=== PATIENT | male | born 1980 | race Caucasian/White ===

== ENCOUNTER 2020-05-19 11:20 | Inpatient (IN) | payer MEDICARE, MEDICAID, SELFPAY ==
[2020-05-19 11:55] VITALS: BP 162/109; PULSE 101; RESP 18; O2SAT 96; BMI 37.0
--- NOTE | 2020-05-19 12:05 | CT_ITS ---
EXAMINATION: CT ABDOMEN AND PELVIS WITH CONTRAST CLINICAL INFORMATION: Abdominal pain and bleeding from ostomy COMPARISON: Previous exams most recent 03/01/2000 TECHNIQUE: Multidetector volumetric images were obtained from the superior aspect of the liver through the pubic symphysis following administration 85 mL of Omnipaque 350 intravenous contrast. Sagittal and coronal reformatted images were obtained on the technologist's workstation. Oral contrast: No This CT examination was performed using dose optimization techniques as appropriate, variously including the following: *Automated exposure control *Adjustment of mA and/or kV according to patient size (this includes techniques or standardized protocols for targeted exams where dose is matched to indication/reason for exam; i.e. extremities or head) *Use of iterative reconstruction technique DLP: 966 mGy-cm FINDINGS: LUNG BASES: The visualized lung bases are unremarkable. LIVER, GALLBLADDER, AND BILIARY TREE: The liver is low in attenuation suggestive of fatty infiltration. No focal liver lesion is seen. There may be gallstones in the gallbladder. The gallbladder is otherwise normal. There is no biliary duct dilatation. PANCREAS: Unremarkable. SPLEEN: The spleen is slightly enlarged measuring 13.7 cm in length. ADRENAL GLANDS: Unremarkable. KIDNEYS AND URETERS: The kidneys are normal in size, shape, and attenuation. No hydronephrosis, hydroureter, or calculi seen. There is focal dilatation of the right distal ureter. BLADDER: The bladder is not optimally distended. There is question of mild diffuse bladder wall thickening. GASTROINTESTINAL TRACT: The patient appears post near total colectomy. There is a right lower quadrant ileostomy. There is a large parastomal hernia containing fat and loops of small bowel. There are multiple small ventral hernias containing fat. No abnormal small bowel bowel wall thickening or enhancement is seen. There is a small supraumbilical hernia containing fat and a knuckle of small bowel. There are no dilated loops of bowel to suggest obstruction. There is question of mild wall thickening of the remaining distal sigmoid colon and rectum. This is unchanged from previous exams. ABDOMINAL WALL: See above. LYMPH NODES: Normal. VASCULAR: Unremarkable. PELVIC VISCERA: Unremarkable. OSSEOUS STRUCTURES: There are degenerative changes of the spine. CT/CT abdomen pelvis w con IMPRESSION: Postop colectomy. Right lower quadrant ileostomy. Large parastomal hernia containing multiple loops of small bowel and fat. No evidence of obstruction, bowel wall thickening or wall enhancement seen. Multiple ventral small hernias containing fat and small supraumbilical hernia containing a knuckle of small bowel. Slightly enlarged spleen. Stable focal dilatation of the right distal ureter. Bladder not optimally distended. Question diffuse bladder wall thickening.
--- NOTE | 2020-05-19 12:09 | ED_ITS ---
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 States he has had 2 prior episodes of this in the past most recently in 2018 where it was thought to be related to a gastric ulcer. He does report he has slight bubble like discomfort in the upper abdomen otherwise no nausea vomiting, chest pain or shortness of breath or weakness. Onset (ago): day(s) (1 days ) Related Data Home Medications Medication Instructions Recorded Confirmed hydroxyzine HCl 25 mg PO Q8H PRN 05/19/20 05/19/20 methadone 70 mg PO DAILY 05/19/20 05/19/20 rivaroxaban [Xarelto] 20 mg PO DAILY 05/19/20 05/19/20 sertraline 50 mg PO DAILY 05/19/20 05/19/20 Previous Rx's Medication Instructions Recorded omeprazole 20 mg capsule,delayed 20 mg PO DAILY #30 cap 05/13/20 release Allergies Allergy/AdvReac Type Severity Reaction Status Date / Time No Known Allergies Allergy Unknown UNKNOWN Unverified 03/25/20 14:59 [NO KNOWN ALLERGIES] PMF Past Medical History Medical History (Updated 05/19/20 @ 16:23 by Olman Padron NP) Colostomy in place Hirschsprung's disease Pulmonary embolism Social History Social History Smoked in Last 30 Days: No Use of substances other than those prescribed or required for medical reasons: No Advance Directives: No Advance Directives Information Provided: Yes Physical Exam Vital Signs: Vital Signs: Last Vital Signs Temp 98.2 F 05/19/20 15:57 Pulse 120 H 05/19/20 15:57 Resp 18 05/19/20 15:57 BP 100/58 L 05/19/20 15:57 Pulse Ox 95 05/19/20 15:57 Body Mass Index 37.0 Const: General: cooperative and healthy appearing; No acute distress or intoxicated appearing Nutritional Appearance: average body habitus Orientation/consciousness: patient oriented x3 HENMT: Head: Yes normal to inspection Ears: hearing grossly normal bilaterally Eyes: General: appearance normal, both eyes and all related structures Visual Lowe: normal visual lowe by confrontation Neck: Neck: Yes normal visual inspection and No tender Thyroid: Thyroid normal Chest: Chest palpation & inspection: normal inspection of the chest Resp: Effort & Inspection: normal respiratory effort Cardio: Jugular venous distension: no JVD GI: Other: Inspection: Yes normal to inspection Percussion: Yes normal to percussion Auscultation: normal bowel sounds : General: Yes no CVA tenderness Back/Spine/Pelvis: Back: no CVA tenderness Skin: General skin exam: no rashes or lesions noted Neuro: General: patient oriented x3 Extrem: General: Yes normal to inspection Course Course Course Narrative: 1210 Consistency of this shawna red substance in the colostomy is very water like and there is no form clots I did ask him if he has been been drinking any juices with red dye or cranberry juice and he does admit that he has been drinking an energy drink that is made by Gatorade that is red. Occult stool obtained and sent as well as labs including type and screen given his abdominal pain is history CT of the abdomen will be performed. Patient this time is hemodynamically stable in no acute distress. Reevaluation(s) Reevaluation #1: 1300 Call placed to GI covering Dr. López [phone] López advised me to discuss case with Dr. Peres or Dr. Natalie Peres as he is not covering call until 17:00 today Paged placed to Dr. Peres- Reevaluation #2: Case discussed with Dr. Peres who evaluated patient at bedside recommendation ppi, will scope him tomorrow but in the meantime if he becomes unstable recommendation is CT angio of the abdomen. Reevaluation #3: Case discussed with hospitalist services for admission. Patient remained stable. Consultations Consultation #1: [address] read I spoke to [facility] they are working on the read right now Medical Decision Making Lab Data Result diagrams: 05/19/20 12:13 05/19/20 12:13 Labs: Lab Results 05/19/20 05/19/20 05/19/20 Range/Units 12:08 12:13 12:13 WBC 4.4 L (4.8-10.8) X10*3/uL RBC 4.80 (4.60-5.80) X10*6/uL Hgb 13.4 L (14.0-18.0) g/dl Hct 40.4 L (42-52) % MCV 84.2 (80-98) fL MCH 27.9 (27.0-33.0) pg MCHC 33.2 (31.0-36.0) g/dl RDW 13.4 (11.0-16.0) % Plt Count 176 (160-400) X10*3/uL MPV 10.8 (9.4-12.4) fL Immature Gran % (Auto) 0.5 H (0.0-0.4) % Neut % (Auto) 65.3 (45-73) % Lymph % (Auto) 25.5 (20-40) % [place] % (Auto) 6.2 (2-11) % Eos % (Auto) 1.8 (0-4) % Baso % (Auto) 0.7 (0-2) % Lymph # (Auto) 1.1 L (1.2-4.9) X10*3/uL [place] # (Auto) 0.3 (0.1-1.2) X10*3/uL Eos # (Auto) 0.1 (0.0-0.4) X10*3/uL Baso # (Auto) 0.0 (0.0-0.2) X10*3/uL Abs Immat Gran (auto) 0.02 (0.00-0.03) X10*3/uL Absolute Neuts (auto) 2.9 (2.0-8.3) X10*3/uL Absolute Nucleated RBC 0.000 (0.0-0.012) X10*3/uL Nucleated RBC % (auto) 0.0 (0.0-0.2) /100WBC PT 19.6 H (10.8-13.0) SEC INR 1.6 H (0.9-1.1) APTT 43.3 H (24.1-38.0) SEC Sodium (135-145) mmol/L Potassium (3.3-5.1) mmol/l Chloride (96-108) mmol/L Carbon Dioxide (22-29) mmol/L Anion Gap (12-20) BUN (9-16) mg/dL Creatinine (0.5-1.4) mg/dL Estim Creat Clear Calc Estimated GFR Random Glucose (60-115) mg/dL Calcium (8.4-10.2) mg/dL Total Bilirubin (0.0-1.0) mg/dL AST (5-37) U/L ALT (0-40) U/L Alkaline Phosphatase (39-117) U/L Total Protein (6.5-8.0) g/dL Albumin (3.5-5.0) g/dL Urine Color Urine Appearance Urine pH (5.0-8.0) Ur Specific [place] (1.005-1.025) Urine Protein (NEG-TRACE) MG/DL Urine Glucose (UA) (NEG) MG/DL Urine Ketones (NEG) MG/DL Urine Blood (NEG) Urine Nitrite (NEG) Ur Leukocyte Esterase (NEG) Urine RBC (0) /HPF Urine WBC (0-4) /HPF Ur Squamous Epith Cells /LPF Urine Bacteria /LPF Stool Occult Blood POS (NEG) COVID-19 ([facility]) (Negative) COVID-19 Clin Com Blood Type Antibody Screen 05/19/20 05/19/20 05/19/20 Range/Units 12:13 12:29 12:48 WBC (4.8-10.8) X10*3/uL RBC (4.60-5.80) X10*6/uL Hgb (14.0-18.0) g/dl Hct (42-52) % MCV (80-98) fL MCH (27.0-33.0) pg MCHC (31.0-36.0) g/dl RDW (11.0-16.0) % Plt Count (160-400) X10*3/uL MPV (9.4-12.4) fL Immature Gran % (Auto) (0.0-0.4) % Neut % (Auto) (45-73) % Lymph % (Auto) (20-40) % [place] % (Auto) (2-11) % Eos % (Auto) (0-4) % Baso % (Auto) (0-2) % Lymph # (Auto) (1.2-4.9) X10*3/uL [place] # (Auto) (0.1-1.2) X10*3/uL Eos # (Auto) (0.0-0.4) X10*3/uL Baso # (Auto) (0.0-0.2) X10*3/uL Abs Immat Gran (auto) (0.00-0.03) X10*3/uL Absolute Neuts (auto) (2.0-8.3) X10*3/uL Absolute Nucleated RBC (0.0-0.012) X10*3/uL Nucleated RBC % (auto) (0.0-0.2) /100WBC PT (10.8-13.0) SEC INR (0.9-1.1) APTT (24.1-38.0) SEC Sodium 138 (135-145) mmol/L Potassium 3.7 (3.3-5.1) mmol/l Chloride 102 (96-108) mmol/L Carbon Dioxide 27 (22-29) mmol/L Anion Gap 13 (12-20) BUN 14 (9-16) mg/dL Creatinine 0.94 (0.5-1.4) mg/dL Estim Creat Clear Calc 118.0 Estimated GFR > 60 Random Glucose 137 H (60-115) mg/dL Calcium 9.0 (8.4-10.2) mg/dL Total Bilirubin 0.5 (0.0-1.0) mg/dL AST 25 (5-37) U/L ALT 33 (0-40) U/L Alkaline Phosphatase 87 (39-117) U/L Total Protein 7.3 (6.5-8.0) g/dL Albumin 4.5 (3.5-5.0) g/dL Urine Color YELLOW Urine Appearance CLEAR Urine pH 6.0 (5.0-8.0) Ur Specific [place] >= 1.030 H (1.005-1.025) Urine Protein TRACE (NEG-TRACE) MG/DL Urine Glucose (UA) NEG (NEG) MG/DL Urine Ketones NEG (NEG) MG/DL Urine Blood NEG (NEG) Urine Nitrite NEG (NEG) Ur Leukocyte Esterase NEG (NEG) Urine RBC 0-2 (0) /HPF Urine WBC 0 (0-4) /HPF Ur Squamous Epith Cells TRACE /LPF Urine Bacteria NONE /LPF Stool Occult Blood (NEG) COVID-19 ([facility]) (Negative) COVID-19 Clin Com Blood Type A Positive Antibody Screen NEGATIVE 05/19/20 Range/Units 15:22 WBC (4.8-10.8) X10*3/uL RBC (4.60-5.80) X10*6/uL Hgb (14.0-18.0) g/dl Hct (42-52) % MCV (80-98) fL MCH (27.0-33.0) pg MCHC (31.0-36.0) g/dl RDW (11.0-16.0) % Plt Count (160-400) X10*3/uL MPV (9.4-12.4) fL Immature Gran % (Auto) (0.0-0.4) % Neut % (Auto) (45-73) % Lymph % (Auto) (20-40) % [place] % (Auto) (2-11) % Eos % (Auto) (0-4) % Baso % (Auto) (0-2) % Lymph # (Auto) (1.2-4.9) X10*3/uL [place] # (Auto) (0.1-1.2) X10*3/uL Eos # (Auto) (0.0-0.4) X10*3/uL Baso # (Auto) (0.0-0.2) X10*3/uL Abs Immat Gran (auto) (0.00-0.03) X10*3/uL Absolute Neuts (auto) (2.0-8.3) X10*3/uL Absolute Nucleated RBC (0.0-0.012) X10*3/uL Nucleated RBC % (auto) (0.0-0.2) /100WBC PT (10.8-13.0) SEC INR (0.9-1.1) APTT (24.1-38.0) SEC Sodium (135-145) mmol/L Potassium (3.3-5.1) mmol/l Chloride (96-108) mmol/L Carbon Dioxide (22-29) mmol/L Anion Gap (12-20) BUN (9-16) mg/dL Creatinine (0.5-1.4) mg/dL Estim Creat Clear Calc Estimated GFR Random Glucose (60-115) mg/dL Calcium (8.4-10.2) mg/dL Total Bilirubin (0.0-1.0) mg/dL AST (5-37) U/L ALT (0-40) U/L Alkaline Phosphatase (39-117) U/L Total Protein (6.5-8.0) g/dL Albumin (3.5-5.0) g/dL Urine Color Urine Appearance Urine pH (5.0-8.0) Ur Specific [place] (1.005-1.025) Urine Protein (NEG-TRACE) MG/DL Urine Glucose (UA) (NEG) MG/DL Urine Ketones (NEG) MG/DL Urine Blood (NEG) Urine Nitrite (NEG) Ur Leukocyte Esterase (NEG) Urine RBC (0) /HPF Urine WBC (0-4) /HPF Ur Squamous Epith Cells /LPF Urine Bacteria /LPF Stool Occult Blood (NEG) COVID-19 ([facility]) Negative (Negative) COVID-19 Clin Com See Note Blood Type Antibody Screen Discharge Plan Discharge Clinical Impression: Acute GI bleeding Patient Disposition: Admitted As Inpatient Prescriptions: No Action omeprazole 20 mg capsule,delayed release(DR/EC) 20 mg PO DAILY Qty: 30 RF: 0 sertraline 50 mg tablet 50 mg PO DAILY RF: 0 Xarelto 20 mg tablet 20 mg PO DAILY RF: 0 hydroxyzine HCl 25 mg tablet 25 mg PO Q8H PRN (Reason: anxiety) RF: 0 methadone 10 mg/mL Concentrate 70 mg PO DAILY RF: 0
[2020-05-19 12:18] LABS: MANUAL DIFF FLAG NO
[2020-05-19 12:19] LABS: Basophils Percent Auto 0.7 % (0-2); Eosinophils Absolute Auto 0.1 X10*3/uL (0.0-0.4); Eosinophils Percent Auto 1.8 % (0-4); Hematocrit 40.4 % (42-52); Hemoglobin 13.4 g/dl (14.0-18.0); Imm Gran Abs Auto 0.02 X10*3/uL (0.00-0.03); Imm Gran Pct Auto 0.5 % (0.0-0.4); Lymphocytes Absolute Auto 1.1 X10*3/uL (1.2-4.9); Lymphocytes Percent Auto 25.5 % (20-40); Mean Corpuscular HGB Conc 33.2 g/dl (31.0-36.0); Mean Corpuscular Hemoglobin 27.9 pg (27.0-33.0); Mean Corpuscular Volume 84.2 fL (80-98); Mean Platelet Volume 10.8 fL (9.4-12.4); Monocytes Absolute Auto 0.3 X10*3/uL (0.1-1.2); Monocytes Percent Auto 6.2 % (2-11); Neutrophils Absolute Auto 2.9 X10*3/uL (2.0-8.3); Neutrophils Percent Auto 65.3 % (45-73); Platelet Count 176 X10*3/uL (160-400); Red Cell Distribution Width 13.4 % (11.0-16.0); White Blood Count 4.4 X10*3/uL (4.8-10.8)
[2020-05-19 12:20] LABS: OBS Int Ctl Valid YES; OBS1 POS (NEG)
[2020-05-19 12:32] LABS: INTERNATIONAL NORM RATIO 1.6 (0.9-1.1); Prothrombin Time 19.6 SEC (10.8-13.0)
[2020-05-19 12:35] LABS: Partial Thromboplastin Time 43.3 SEC (24.1-38.0)
[2020-05-19 12:44] LABS: Glucose Urine UA NEG (NEG); Leukocyte Esterase Urine NEG (NEG); Nitrite Urine NEG (NEG); Specific Gravity - Urine >= 1.030 (1.005-1.025); Urine Blood NEG (NEG); Urine Ketones NEG (NEG); Urine Protein TRACE MG/DL (NEG-TRACE)
[2020-05-19 12:46] LABS: Appearance Urine CLEAR; Color Urine YELLOW
[2020-05-19 12:51] LABS: RBC Urine 0-2 /HPF (0); Squamous Epithelial Cell Urine TRACE /LPF; WBC Urine 0 /HPF (0-4)
[2020-05-19 12:53] LABS: Alanine Aminotransferase 33 U/L (0-40); Albumin Level 4.5 g/dL (3.5-5.0); Alkaline Phosphatase 87 U/L (39-117); Anion Gap 13 (12-20); Aspartate Amino Transferase 25 U/L (5-37); Bilirubin Total 0.5 mg/dL (0.0-1.0); Blood Urea Nitrogen 14 mg/dL (9-16); Carbon Dioxide 27 mmol/L (22-29); Chloride 102 mmol/L (96-108); Estimated Glomerular Filt Rate > 60; Glucose Random 137 mg/dL (60-115); Potassium 3.7 mmol/l (3.3-5.1); Sodium 138 mmol/L (135-145); Total Protein 7.3 g/dL (6.5-8.0)
[2020-05-19 14:43] VITALS: BP 154/98; PULSE 93; RESP 18; TEMP 36.7; O2SAT 97
[2020-05-19] MEDS: ondansetron HCL 4 MG/2 ML VIAL IVPUSH (14:47)
[2020-05-19 15:43] LABS: COVID-19 Test Negative (Negative)
[2020-05-19 15:57] VITALS: BP 100/58; PULSE 120; RESP 18; TEMP 36.8; O2SAT 95
[2020-05-19] MEDS: Pantoprazole Sodium 40 MG/10 ML VIAL 80 MG IVPUSH (16:01)
--- NOTE | 2020-05-19 16:28 | P.HPHOSP_ITS ---
History of Present Illness Date of Service: 05/19/20 Chief Complaint: GI bleeding, blood on ileostomy bag A 39 years old male with PMH of her spring disease post ileostomy, on methadone, 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 The patient reported doing fairly well recently but has noticed multiple episodes sudden onset pain in his stomach area that lasts for short period of time then resolves completely more often over the last week or 2 not associated with any nausea or vomiting. This morning he noticed blood in his ileostomy back and was concerned as he had history of previous GI bleed and peptic ulcer so he came to the emergency for evaluation. In ED his blood level has been stable but continue to bleeding into the bag. He reports being not 100% compliant with omeprazole. Evaluated by Gastroenterology who are planning to do endoscopy this morning To be admitted for further evaluation treatment. Review of Systems Review of Systems: No fever, chills or weakness No chest pain, palpitation No shortness of breath or coughing Infrequent epigastric abdominal pain, no nausea or vomiting No urinary symptoms No any rash or wounds Yes all other systems are reviewed and are negative COUNT INCLUDES [facility] Medical History Colostomy in place Hirschsprung's disease Pulmonary embolism Surgical History (Updated 05/19/20 @ 16:40 by Arianna Peres MD) Status post repair of ventral hernia Social History Smoked in Last 30 Days: No Use of substances other than those prescribed or required for medical reasons: No Advance Directives: No Advance Directives Information Provided: Yes Meds Allergies Allergy/AdvReac Type Severity Reaction Status Date / Time No Known Allergies Allergy Unknown UNKNOWN Unverified 03/25/20 14:59 [NO KNOWN ALLERGIES] Home Medications Medication Instructions Recorded Confirmed Type hydroxyzine HCl 25 mg PO Q8H PRN 05/19/20 05/19/20 History methadone 70 mg PO DAILY 05/19/20 05/19/20 History rivaroxaban [Xarelto] 20 mg PO DAILY 05/19/20 05/19/20 History sertraline 50 mg PO DAILY 05/19/20 05/19/20 History Physical Exam Vital Signs and Narrative: Vital Signs: Last Vital Signs Temp 98.2 F 05/19/20 15:57 Pulse 120 H 05/19/20 15:57 Resp 18 05/19/20 15:57 BP 100/58 L 05/19/20 15:57 Pulse Ox 95 05/19/20 15:57 Body Mass Index 37.0 Constitutional : Alert, oriented, not in distress Neck : Normal inspection, Supple Cardiovascular : RRR, S1 S2, no lower extremity edema Respiratory : Good bilateral air entry, no crackles, wheezes or rhonchi Gastrointestinal: soft, lax, Normal bowel sounds, Non tender, right-sided large hernia noticed with ileostomy back have blood, no clots noted. No surrounding erythema or drainage. Skin : Warm/Dry, No rash Neurological : Alert & oriented x3, No focal deficit Results Labs CBC and Chem 7: 05/19/20 12:13 05/19/20 12:13 Labs: Laboratory Results - last 24 hr 05/19/20 05/19/20 05/19/20 12:08 12:13 12:13 MCV 84.2 MCH 27.9 MCHC 33.2 RDW 13.4 Plt Count 176 MPV 10.8 Immature Gran % (Auto) 0.5 H Neut % (Auto) 65.3 Lymph % (Auto) 25.5 [place] % (Auto) 6.2 Eos % (Auto) 1.8 Baso % (Auto) 0.7 Lymph # (Auto) 1.1 L [place] # (Auto) 0.3 Eos # (Auto) 0.1 Baso # (Auto) 0.0 Abs Immat Gran (auto) 0.02 Absolute Neuts (auto) 2.9 Absolute Nucleated RBC 0.000 Nucleated RBC % (auto) 0.0 PT 19.6 H INR 1.6 H APTT 43.3 H Anion Gap Estim Creat Clear Calc Estimated GFR Random Glucose Calcium Total Bilirubin AST ALT Alkaline Phosphatase Total Protein Albumin Urine Color Urine Appearance Urine pH Ur Specific [place] Urine Protein Urine Glucose (UA) Urine Ketones Urine Blood Urine Nitrite Ur Leukocyte Esterase Urine RBC Urine WBC Ur Squamous Epith Cells Urine Bacteria Stool Occult Blood POS COVID-19 ([facility]) COVID-19 Clin Com Blood Type Antibody Screen 05/19/20 05/19/20 05/19/20 12:13 12:29 12:48 MCV MCH MCHC RDW Plt Count MPV Immature Gran % (Auto) Neut % (Auto) Lymph % (Auto) [place] % (Auto) Eos % (Auto) Baso % (Auto) Lymph # (Auto) [place] # (Auto) Eos # (Auto) Baso # (Auto) Abs Immat Gran (auto) Absolute Neuts (auto) Absolute Nucleated RBC Nucleated RBC % (auto) PT INR APTT Anion Gap 13 Estim Creat Clear Calc 118.0 Estimated GFR > 60 Random Glucose 137 H Calcium 9.0 Total Bilirubin 0.5 AST 25 ALT 33 Alkaline Phosphatase 87 Total Protein 7.3 Albumin 4.5 Urine Color YELLOW Urine Appearance CLEAR Urine pH 6.0 Ur Specific [place] >= 1.030 H Urine Protein TRACE Urine Glucose (UA) NEG Urine Ketones NEG Urine Blood NEG Urine Nitrite NEG Ur Leukocyte Esterase NEG Urine RBC 0-2 Urine WBC 0 Ur Squamous Epith Cells TRACE Urine Bacteria NONE Stool Occult Blood COVID-19 ([facility]) COVID-19 Clin Com Blood Type A Positive Antibody Screen NEGATIVE 05/19/20 15:22 MCV MCH MCHC RDW Plt Count MPV Immature Gran % (Auto) Neut % (Auto) Lymph % (Auto) [place] % (Auto) Eos % (Auto) Baso % (Auto) Lymph # (Auto) [place] # (Auto) Eos # (Auto) Baso # (Auto) Abs Immat Gran (auto) Absolute Neuts (auto) Absolute Nucleated RBC Nucleated RBC % (auto) PT INR APTT Anion Gap Estim Creat Clear Calc Estimated GFR Random Glucose Calcium Total Bilirubin AST ALT Alkaline Phosphatase Total Protein Albumin Urine Color Urine Appearance Urine pH Ur Specific [place] Urine Protein Urine Glucose (UA) Urine Ketones Urine Blood Urine Nitrite Ur Leukocyte Esterase Urine RBC Urine WBC Ur Squamous Epith Cells Urine Bacteria Stool Occult Blood COVID-19 ([facility]) Negative COVID-19 Clin Com See Note Blood Type Antibody Screen Assessment and Plan (1) On anticoagulant therapy: Status: Acute (2) Acute GI bleeding: Status: Acute A 39 years old male with PMH of her spring disease post ileostomy, on methadone, 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 Acute GI bleeding Hemoglobin stable Type and screen done Has a history of PUD and complaining of stomach pain which might be the reason Start pantoprazole IV Gentle hydration Monitor H and H To do GI bleed protocol CT scan if continues to bleed or become more symptomatic GI input appreciated, to do endoscopy in the morning History recurrent PE Hold Eliquis for now Anxiety disorder Atarax as needed History drug abuse continue methadone DVT PPX SCDs
--- NOTE | 2020-05-19 16:30 | PM.GICN ---
History of Present Illness Data of Consult Service Date: 05/19/20 Requesting physician: Olman Padron Primary Care Provider: Sheng Tamayo MD [facility] Reason for consult: Patient presented to the ER with blood in his ileostomy bag. 39 yo male who has recently been followed by Dr. Ramos and whom I have seen in the past noted some bleeding off and on in his ileostomy bag since yesterday. 2 days ago he had done some heavy lifting using leaf blower,etc. with yard work around his house. Does not use ASA or NSAIDs since on anticoagulant therapy due to previous pulmonary emboli. He denies any recent nausea, vomiting, etc. He does not drink alcohol. Review of Systems Constitutional: Constitutional: Reports no additional constitutional complaints, Denies fatigue, Denies lethargy and Denies weight loss Cardiovascular: Cardiovascular: Denies chest pain, Denies rapid heart rate, Denies palpitations and Reports dyspnea on exertion (Mild significant abdominal obesity) Respiratory: Respiratory: Denies cough, Denies hemoptysis, Reports dyspnea on exertion (Mild significant abdominal obesity) and Denies wheezing Gastrointestinal: Gastrointestinal: Reports abdominal pain (Has been to ER with this pain), Reports hematochezia (started yesterday), Denies coffee ground emesis, Denies heartburn and Reports other (Has been on Omeprzole daily for > 1 month) Endocrine: Endocrine: Denies fatigue and Denies palpitations Allergic/Immunologic: Allergic/Immunologic: Denies wheezing PMFSH Past Medical History Medical History (Updated 05/19/20 @ 16:41 by Arianna Peres MD) Hirschsprung's disease Hx of gastric ulcer Ileostomy in place On anticoagulant therapy Pulmonary embolism Surgical History Surgical History (Updated 05/19/20 @ 17:00 by Arianna Peres MD) Hx of esophagogastroduodenoscopy Status post repair of ventral hernia Social History Social History (Updated 05/19/20 @ 16:57 by Arianna Peres MD) Household Members Other:: Lives with his mother. His father just recently Housing: House Smoked in Last 30 Days: No Use of substances other than those prescribed or required for medical reasons: No Advance Directives: No Advance Directives Information Provided: Yes Travel History Ebola Risk: Travel/Contact With Anyone From Affected Area/s: No Has Patient Experienced Ebola Symptoms: No I have personally reviewed the patient's Ebola risk: No History of recent travel: No Meds Allergies Allergy/AdvReac Type Severity Reaction Status Date / Time No Known Allergies Allergy Unknown UNKNOWN Unverified 03/25/20 14:59 [NO KNOWN ALLERGIES] Home Medications Medication Instructions Recorded Confirmed Type hydroxyzine HCl 25 mg PO Q8H PRN 05/19/20 05/19/20 History methadone 70 mg PO DAILY 05/19/20 05/19/20 History rivaroxaban [Xarelto] 20 mg PO DAILY 05/19/20 05/19/20 History sertraline 50 mg PO DAILY 05/19/20 05/19/20 History Physical Exam Vital Signs: Vital Signs: Last Vital Signs Temp 98.2 F 05/19/20 15:57 Pulse 120 H 05/19/20 15:57 Resp 18 05/19/20 15:57 BP 100/58 L 05/19/20 15:57 Pulse Ox 95 05/19/20 15:57 Body Mass Index 37.0 Const: General: cooperative and anxious Nutritional Appearance: obese Orientation/consciousness: patient oriented x3 Limitations: no limitations Resp: Effort & Inspection: normal respiratory effort, able to speak in complete sentences, no respiratory distress and No prolonged expiratory phase Auscultation: clear to auscultation bilaterally Cardio: Rate: regular rate Rhythm: regular rhythm GI: Inspection: Yes visible herniation (significant hernia involving area around the ileostomy) Palpation (GI): Soft to palpation, nontender, Hernia present (ventral para stomal) ventral and no masses Auscultation: Hyperactive bowel sounds present Neuro: General: patient oriented x3 Extrem: General: Yes no clubbing, cyanosis or edema Results Labs CBC & Chem 7: 05/19/20 12:13 05/19/20 12:13 Labs: Short CBC 05/19/20 Range/Units 12:13 WBC 4.4 L (4.8-10.8) X10*3/uL Hgb 13.4 L (14.0-18.0) g/dl Hct 40.4 L (42-52) % Plt Count 176 (160-400) X10*3/uL BMP 05/19/20 12:13 Sodium 138 Potassium 3.7 Chloride 102 Carbon Dioxide 27 BUN 14 Creatinine 0.94 Calcium 9.0 Liver Function 05/19/20 Range/Units 12:13 Total Bilirubin 0.5 (0.0-1.0) mg/dL AST 25 (5-37) U/L ALT 33 (0-40) U/L Alkaline Phosphatase 87 (39-117) U/L Albumin 4.5 (3.5-5.0) g/dL Urine 05/19/20 Range/Units 12:29 Urine Color YELLOW Urine Appearance CLEAR Urine pH 6.0 (5.0-8.0) Ur Specific [place] >= 1.030 H (1.005-1.025) Urine Protein TRACE (NEG-TRACE) MG/DL Urine Glucose (UA) NEG (NEG) MG/DL Assessment and Plan (1) Acute GI bleeding: Status: Acute Patient seems to be having a recurrent GI bleed. He has had a hx of bleeding. There is only 1 EGD that demonstrated an obvious gastric source. He has recently been back on PPI treatment. He was replaced on this due to episodes of pain for which he had come to the ER. With multiple surgeries there is still a possibility that he is bleeding from distally in the small bowel. If bleeds abruptly this evening consider a CT angio for location of bleeding site. Have placed him on the OR schedule for 05/20/20 for urgent EGD. Patient is aware. Reviewed with hospitalist as well as ER Provider. IV PPI Clears til 2AM Monitor H&H q 6hr REcheck INR in AM
[2020-05-19 19:30] VITALS: BMI 39.3
[2020-05-19 19:50] VITALS: BP 150/88; PULSE 73; RESP 16; TEMP 36.8; O2SAT 95
[2020-05-19 20:00] VITALS: BP 150/88; PULSE 73; RESP 16; TEMP 36.8; O2SAT 95
[2020-05-19] MEDS: 0.9 % Sodium Chloride 1,000 ML 100 ML IVCONT (20:30)
[2020-05-19 22:47] LABS: Hematocrit 36.4 % (42-52)
[2020-05-20] VITALS (11 sets, daily range): BP systolic 121–172; BP diastolic 77–94; PULSE 59–82; RESP 16–20; TEMP 36.2–37; O2SAT 94–99; BMI 37.0
[2020-05-20] MEDS: 0.9 % Sodium Chloride Flush 3 ML SYRINGE IVFLUSH ×3 (02:00→16:33)
[2020-05-20 05:05] LABS: Hematocrit 35.9 % (42-52); Hemoglobin 11.6 g/dl (14.0-18.0); Mean Corpuscular HGB Conc 32.3 g/dl (31.0-36.0); Mean Corpuscular Hemoglobin 27.6 pg (27.0-33.0); Mean Corpuscular Volume 85.5 fL (80-98); Mean Platelet Volume 10.6 fL (9.4-12.4); Platelet Count 134 X10*3/uL (160-400); Red Cell Distribution Width 13.6 % (11.0-16.0); White Blood Count 3.9 X10*3/uL (4.8-10.8)
[2020-05-20 05:37] LABS: Anion Gap 11 (12-20); Blood Urea Nitrogen 12 mg/dL (9-16); Calcium 8.5 mg/dL (8.4-10.2); Carbon Dioxide 29 mmol/L (22-29); Chloride 103 mmol/L (96-108); Creatinine Clr Calc Pharmacy 133.6; Estimated Glomerular Filt Rate > 60; Glucose Random 88 mg/dL (60-115); Potassium 4.1 mmol/l (3.3-5.1); Sodium 139 mmol/L (135-145)
[2020-05-20] MEDS: 0.9 % Sodium Chloride 1,000 ML 100 ML IVCONT ×2 (06:47→20:45)
[2020-05-20] MEDS: Pantoprazole Sodium 40 MG/10 ML VIAL IVPUSH ×2 (07:48→16:33)
--- NOTE | 2020-05-20 08:48 | MHC.CM.PN ---
CM met with Patient. Patient lives in a house with his Mother/HCP and he is functionally independent. Patient's goal is to return home and CM has initiated and will follow for dc planning. IMM addressed with Patient and the original has been given to him and a copy has been placed on the chart. Patient is on Methadone r/t a drug history and he gets his Methadone at [facility]. Patient's PCP is Dr. Sheng Ramirez. Patient has an ileostomy that he manages himself (no VNA).
--- NOTE | 2020-05-20 10:34 | HO.PM.IMPN ---
Subjective Subjective Date of Service: 05/20/20 Interval History: Seen in f/u for GI, acute blood loss anemia.Stable, no bleeding overnight ROS: Gen: no fever Resp: no sob, no cough CV: no chest, no [place], no leg edema GI: No n/v, no abd pain, no bleeding Neuro: No confusion Physical Exam Vital Signs: Vital Signs: Last Vital Signs Temp 98.5 F 05/20/20 07:54 Pulse 77 05/20/20 07:54 Resp 18 05/20/20 07:54 BP 139/82 05/20/20 07:54 Pulse Ox 95 05/20/20 07:54 Body Mass Index 37.0 Constitutional : Alert, oriented, not in distress Neck : Normal inspection, Supple Cardiovascular : RRR, S1 S2, no lower extremity edema Respiratory : Good bilateral air entry, no crackles, wheezes or rhonchi Gastrointestinal: soft, lax, Normal bowel sounds. No blood in ostomy bag Skin : Warm/Dry, No rash Neurological : Alert & oriented x3, No focal deficit Objective Data Current Medications Generic Name Dose Route Start Last Admin Trade Name Freq PRN Reason Stop Dose Admin Acetaminophen 650 mg 05/19/20 18:33 Acetaminophen 325 Mg Tablet PO Q6H PRN Pain, Mild (Pain Scale 1-3) Al Hydroxide/Mg Hydroxide 30 ml 05/19/20 18:33 Magnesium Hydrox/Alum Hydrox 30 Ml Oral.Susp PO Q4H PRN Heartburn/Nausea Hydroxyzine HCl 25 mg 05/19/20 18:33 Hydroxyzine Hcl 25 Mg Tablet PO Q8H PRN anxiety Sodium Chloride 1,000 mls @ 100 mls/hr 05/19/20 18:33 05/20/20 06:47 Ns IVCONT 100 mls/hr .Q10H JUAN F Administration Methadone HCl 70 mg 05/20/20 09:00 05/20/20 08:41 Methadone Hcl 1 Mg/0.1 Ml Oral.Conc PO 70 mg DAILY JUAN F Administration Ondansetron HCl 4 mg 05/19/20 18:33 Ondansetron Hcl 4 Mg/2 Ml Vial IVPUSH Q8H PRN Nausea and Vomiting Pantoprazole Sodium 40 mg 05/19/20 18:33 05/20/20 07:48 Pantoprazole Sodium 40 Mg/10 Ml Vial IVPUSH 40 mg BID@0630,1630 JUAN F Administration Pharmacy Consult 1 each 05/19/20 14:32 Consult Rx Perform Med Rec MISCELLANE ONCE PRN Consult order Sodium Chloride 3 ml 05/20/20 00:00 05/20/20 07:48 0.9 % Sodium Chloride Flush 3 Ml Syringe IVFLUSH 3 ml QSHIFT [facility] Administration Labs CBC & Chem 7: 05/20/20 04:36 05/20/20 04:36 Assessment and Plan (1) On anticoagulant therapy: Status: Acute (2) Acute GI bleeding: Status: Acute Assessment and Plan: 39 years old male with PMH of her spring disease post ileostomy, on methadone, 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 Acute GI bleeding Hemoglobin stable Type and screen done Has a history of PUD and complaining of stomach pain which might be the reason Start pantoprazole IV Gentle hydration Monitor H and H To do GI bleed protocol CT scan if continues to bleed or become more symptomatic GI input appreciated, to do endoscopy in the morning History recurrent PE Hold Eliquis for now Anxiety disorder Atarax as needed History drug abuse continue methadone DVT PPX SCDs
--- NOTE | 2020-05-20 13:13 | P.CONAN_ITS ---
[facility] Past Medical History Medical History Hirschsprung's disease Hx of gastric ulcer Ileostomy in place On anticoagulant therapy Pulmonary embolism Surgical History Surgical History Hx of esophagogastroduodenoscopy Status post repair of ventral hernia Social History Social History Household Members: Family Household Members Other:: Lives with his mother. His father just recently Housing: House Smoking Status: Never smoker Smoked in Last 30 Days: No Use of substances other than those prescribed or required for medical reasons: No Have you been hit, kicked, punched, or otherwise hurt by someone within the past year? If so, by whom?: No Is there a partner from a previous relationship who is making you feel unsafe now?: No Are you made to feel afraid or neglected: No Advance Directives: No Advance Directives Information Provided: Yes Do you have thoughts of harming others: None Recently lost weight without trying: No service: No Current occupational status: disabled Meds Allergies Allergy/AdvReac Type Severity Reaction Status Date / Time No Known Allergies Allergy Unknown UNKNOWN Unverified 03/25/20 14:59 [NO KNOWN ALLERGIES] Home Medications Medication Instructions Recorded Confirmed Type hydroxyzine HCl 25 mg PO Q8H PRN 05/19/20 05/19/20 History methadone 70 mg PO DAILY 05/19/20 05/19/20 History rivaroxaban [Xarelto] 20 mg PO DAILY 05/19/20 05/19/20 History sertraline 50 mg PO DAILY 05/19/20 05/19/20 History Exam Exam Date and Time: May 20, 2020 1313 Height,Weight and Vital Signs: Height 5 ft 6 in Weight 104 kg Last Vital Signs Temp 97.2 F 05/20/20 12:43 Pulse 82 05/20/20 12:43 Resp 18 05/20/20 12:43 BP 172/87 H 05/20/20 12:43 Pulse Ox 96 05/20/20 12:43 Pertinent Lab Results Pertinent Lab Results: Laboratory Tests 05/19/20 05/19/20 05/19/20 12:08 12:13 12:13 WBC 4.4 L RBC 4.80 Hgb 13.4 L Hct 40.4 L MCV 84.2 MCH 27.9 MCHC 33.2 RDW 13.4 Plt Count 176 MPV 10.8 Immature Gran % (Auto) 0.5 H Neut % (Auto) 65.3 Lymph % (Auto) 25.5 [place] % (Auto) 6.2 Eos % (Auto) 1.8 Baso % (Auto) 0.7 Lymph # (Auto) 1.1 L [place] # (Auto) 0.3 Eos # (Auto) 0.1 Baso # (Auto) 0.0 Abs Immat Gran (auto) 0.02 Absolute Neuts (auto) 2.9 Absolute Nucleated RBC 0.000 Nucleated RBC % (auto) 0.0 PT 19.6 H INR 1.6 H APTT 43.3 H Sodium Potassium Chloride Carbon Dioxide Anion Gap BUN Creatinine Estim Creat Clear Calc Estimated GFR Random Glucose Calcium Total Bilirubin AST ALT Alkaline Phosphatase Total Protein Albumin Urine Color Urine Appearance Urine pH Ur Specific [place] Urine Protein Urine Glucose (UA) Urine Ketones Urine Blood Urine Nitrite Ur Leukocyte Esterase Urine RBC Urine WBC Ur Squamous Epith Cells Urine Bacteria Stool Occult Blood POS COVID-19 ([facility]) COVID-19 Clin Com Blood Type Antibody Screen 05/19/20 05/19/20 05/19/20 12:13 12:29 12:48 WBC RBC Hgb Hct MCV MCH MCHC RDW Plt Count MPV Immature Gran % (Auto) Neut % (Auto) Lymph % (Auto) [place] % (Auto) Eos % (Auto) Baso % (Auto) Lymph # (Auto) [place] # (Auto) Eos # (Auto) Baso # (Auto) Abs Immat Gran (auto) Absolute Neuts (auto) Absolute Nucleated RBC Nucleated RBC % (auto) PT INR APTT Sodium 138 Potassium 3.7 Chloride 102 Carbon Dioxide 27 Anion Gap 13 BUN 14 Creatinine 0.94 Estim Creat Clear Calc 118.0 Estimated GFR > 60 Random Glucose 137 H Calcium 9.0 Total Bilirubin 0.5 AST 25 ALT 33 Alkaline Phosphatase 87 Total Protein 7.3 Albumin 4.5 Urine Color YELLOW Urine Appearance CLEAR Urine pH 6.0 Ur Specific [place] >= 1.030 H Urine Protein TRACE Urine Glucose (UA) NEG Urine Ketones NEG Urine Blood NEG Urine Nitrite NEG Ur Leukocyte Esterase NEG Urine RBC 0-2 Urine WBC 0 Ur Squamous Epith Cells TRACE Urine Bacteria NONE Stool Occult Blood COVID-19 ([facility]) COVID-19 Clin Com Blood Type A Positive Antibody Screen NEGATIVE 05/19/20 05/19/20 05/20/20 15:22 22:15 04:36 WBC 3.9 L RBC 4.20 L Hgb 12.0 L 11.6 L Hct 36.4 L 35.9 L MCV 85.5 MCH 27.6 MCHC 32.3 RDW 13.6 Plt Count 134 L MPV 10.6 Immature Gran % (Auto) Neut % (Auto) Lymph % (Auto) [place] % (Auto) Eos % (Auto) Baso % (Auto) Lymph # (Auto) [place] # (Auto) Eos # (Auto) Baso # (Auto) Abs Immat Gran (auto) Absolute Neuts (auto) Absolute Nucleated RBC 0.000 Nucleated RBC % (auto) 0.0 PT INR APTT Sodium Potassium Chloride Carbon Dioxide Anion Gap BUN Creatinine Estim Creat Clear Calc Estimated GFR Random Glucose Calcium Total Bilirubin AST ALT Alkaline Phosphatase Total Protein Albumin Urine Color Urine Appearance Urine pH Ur Specific [place] Urine Protein Urine Glucose (UA) Urine Ketones Urine Blood Urine Nitrite Ur Leukocyte Esterase Urine RBC Urine WBC Ur Squamous Epith Cells Urine Bacteria Stool Occult Blood COVID-19 ([facility]) Negative COVID-19 [employer] Com See Note Blood Type Antibody Screen 05/20/20 04:36 WBC RBC Hgb Hct MCV MCH MCHC RDW Plt Count MPV Immature Gran % (Auto) Neut % (Auto) Lymph % (Auto) [place] % (Auto) Eos % (Auto) Baso % (Auto) Lymph # (Auto) [place] # (Auto) Eos # (Auto) Baso # (Auto) Abs Immat Gran (auto) Absolute Neuts (auto) Absolute Nucleated RBC Nucleated RBC % (auto) PT INR APTT Sodium 139 Potassium 4.1 Chloride 103 Carbon Dioxide 29 Anion Gap 11 L BUN 12 Creatinine 0.83 Estim Creat Clear Calc 133.6 Estimated GFR > 60 Random Glucose 88 D Calcium 8.5 Total Bilirubin AST ALT Alkaline Phosphatase Total Protein Albumin Urine Color Urine Appearance Urine pH Ur Specific [place] Urine Protein Urine Glucose (UA) Urine Ketones Urine Blood Urine Nitrite Ur Leukocyte Esterase Urine RBC Urine WBC Ur Squamous Epith Cells Urine Bacteria Stool Occult Blood COVID-19 ([facility]) COVID-19 Clin Com Blood Type Antibody Screen Airway Mallampati Class: III TM Dist: >3cm Neck ROM: Full Denture: Upper and Lower Loose/Missing/Broken Teeth: No Heart: rrr Lungs: nl Other: ao Assessment and Plan Assessment Anesthesia Assessment: Anesthesia Plan Discussed and Chart Reviewed Final Anesthetic Review NPO: Yes ASA Class: III Final Preanesthetic Review: No Changes in Pt Med Stat, Meds/Allgs Chart Reviewed, Consent Obtained/Reviewed and Anes Risks/Benef Reviewed Patient Risk: High Procedure Risk: Low Anesthetic Plan Anesthetic Plan: MAC: Disposition: Standard PACU
--- NOTE | 2020-05-20 14:36 | MHC.SHP ---
Pre-Procedural Eval Section A The patient is an INPATIENT: Yes Changes since office visit: Yes Patient answered all questions; No Cold of Flu in the past 2 weeks, No New Medical Problems and No Changes in Medication The History & Physical has been completed within 30 days and I have reviewed it.: Yes Section B Chief Complaint: GI Bleed Allergies: Allergies Allergy/AdvReac Type Severity Reaction Status Date / Time No Known Allergies Allergy Unknown UNKNOWN Unverified 03/25/20 14:59 [NO KNOWN ALLERGIES] Plan Diagnosis/Plan: Unchanged (EGD FOR ACUTE GI BLEED) Patient has been examined and remains a candidate for the planned procedureY
--- NOTE | 2020-05-20 15:34 | PC.NURSE ---
md moreland by bedside speaking to patient.
--- NOTE | 2020-05-20 15:39 | PC.NURSE ---
patient aware that he is a full liquid diet.
--- NOTE | 2020-05-20 15:48 | PC.NURSE ---
report given to nicolasa mcdonnell. remains on monitor.
--- NOTE | 2020-05-20 19:29 | OP_ITS ---
SURGEON: Arianna Peres MD PREOPERATIVE DIAGNOSIS: The patient is a 39-year-old male, who presented yesterday with bright red blood in his ileostomy bag, which had been intermittent bleeding over 24-hour timeframe. POSTOPERATIVE DIAGNOSIS: Question celiac disorder. No active bleeding noted to the second duodenum. PROCEDURE PERFORMED: Endoscopy to the second duodenum with biopsies. ESTIMATED BLOOD LOSS: Less than 10 mL blood loss. COMPLICATIONS: No complications. ANESTHESIA: Monitored. ANESTHESIOLOGIST: Unique Nicole ASSISTANTS: No switchboard operator assistant. SPECIMENS: Specimen removed; duodenal biopsies (celiac protocol), flat duodenal lesion biopsies in bottle #2. SPINE SUPERVISOR: Dr. Peres. CONDITION: Postop, stable. FINDINGS: Video endoscope was introduced without difficulty. It was navigated into the posterior pharynx and into the esophagus. Esophageal mucosa was normal down to the level of the GE junction. Distal to this, we entered the stomach, there was an elongated stomach and scope was present in the antrum, we could on retroflex, not only scope see the pylorus, but see the full length of the more proximal portion of the stomach. I would question whether or not there was a component of paraesophageal hiatal hernia in this patient. There is mild erythema of the rugal folds. Pylorus itself was somewhat eccentric. On entering the duodenal bulb, the villi present throughout the area of the duodenum I examined were flat. There was a 1 to 2 cm saucer like elevation in the region just after the duodenal bulb and at the beginning of the second duodenum and I biopsied this area separately. The scope was withdrawn. The patient tolerated the procedure well, there was no active bleeding present in the stomach or evidence of coffee grounds at the start of the procedure. I will raise the question as to whether or not there could not be an area of the small bowel distal to the area examined that may have some additional findings. This could be further explored. Currently, I would advance diet to liquids as tolerated and then up to regular diet. Monitor H and H for another 24 hours. Taper off IV PPI over the next 24 hours. May want to consider doing small bowel enterography to assess the contour of the bowel before entertaining the idea of doing a capsule endoscopy in the future. GRAFT OR IMPLANTS: No grafts or implants. Arianna Peres MD MEN/MODL / [id number] MIKE
[2020-05-20] MEDS: hydrOXYzine HCL 25 MG TABLET PO (21:32)
[2020-05-21] VITALS (7 sets, daily range): BP systolic 130–171; BP diastolic 78–97; PULSE 57–83; RESP 18–20; TEMP 36.1–37; O2SAT 94–100
[2020-05-21] MEDS: Pantoprazole Sodium 40 MG/10 ML VIAL IVPUSH ×2 (06:01→16:04)
[2020-05-21] MEDS: 0.9 % Sodium Chloride 1,000 ML 100 ML IVCONT ×2 (06:01→11:34)
[2020-05-21] MEDS: 0.9 % Sodium Chloride Flush 3 ML SYRINGE IVFLUSH ×3 (07:37→20:58)
--- NOTE | 2020-05-21 10:27 | HO.POSTANES ---
Post Anesthesia Evaluation Post Anesthesia Evaluation Vital Signs: Vital Signs Temp Pulse Resp BP Pulse Ox 05/21/20 08:00 98.0 F 65 18 171/97 H 97 05/21/20 03:30 98 F 57 18 130/78 95 05/20/20 23:39 98.1 F 65 18 161/94 H 95 Anesthesia: Monitored Mental Status: Awake Pain Control: Satisfactory Nausea/Vomiting: None Hydration: Adequate Anesthesia-Related Issues: No Anes. Related Issues
[2020-05-21] MEDS: Rivaroxaban 20 MG TABLET PO (11:34)
[2020-05-21] MEDS: Magnesium Hydrox/Alum Hydrox 30 ML ORAL.SUSP PO (11:45)
--- NOTE | 2020-05-21 11:59 | P.PNIM_ITS ---
Subjective Subjective Date of Service: 05/21/20 Interval History: Seen in f/u for gib. No further bleeding Physical Exam Vital Signs: Vital Signs: Last Vital Signs Temp 98.0 F 05/21/20 08:00 Pulse 65 05/21/20 08:00 Resp 18 05/21/20 08:00 BP 171/97 H 05/21/20 08:00 Pulse Ox 97 05/21/20 08:00 Body Mass Index 37.0 Constitutional : Alert, oriented, not in distress Neck : Normal inspection, Supple Cardiovascular : RRR, S1 S2, no lower extremity edema Respiratory : Good bilateral air entry, no crackles, wheezes or rhonchi Gastrointestinal: soft, lax, Normal bowel sounds. No blood in ostomy bag Skin : Warm/Dry, No rash Neurological : Alert & oriented x3, No focal deficit Objective Data Current Medications Generic Name Dose Route Start Last Admin Trade Name Freq PRN Reason Stop Dose Admin Acetaminophen 650 mg 05/19/20 18:33 Acetaminophen 325 Mg Tablet PO Q6H PRN Pain, Mild (Pain Scale 1-3) Al Hydroxide/Mg Hydroxide 30 ml 05/19/20 18:33 05/21/20 11:45 Magnesium Hydrox/Alum Hydrox 30 Ml Oral.Susp PO 30 ml Q4H PRN Administration Heartburn/Nausea Hydroxyzine HCl 25 mg 05/19/20 18:33 05/20/20 21:32 Hydroxyzine Hcl 25 Mg Tablet PO 25 mg Q8H PRN Administration anxiety Sodium Chloride 1,000 mls @ 100 mls/hr 05/19/20 18:33 05/21/20 11:34 Ns IVCONT 100 mls/hr .Q10H JUAN F Administration Methadone HCl 70 mg 05/20/20 09:00 05/21/20 07:37 Methadone Hcl 1 Mg/0.1 Ml Oral.Conc PO 70 mg DAILY JUAN F Administration Ondansetron HCl 4 mg 05/19/20 18:33 Ondansetron Hcl 4 Mg/2 Ml Vial IVPUSH Q8H PRN Nausea and Vomiting Ondansetron HCl 4 mg 05/20/20 13:15 Ondansetron Hcl 4 Mg/2 Ml Vial IVPUSH ONCE PRN Nausea and Vomiting Pantoprazole Sodium 40 mg 05/19/20 18:33 05/21/20 06:01 Pantoprazole Sodium 40 Mg/10 Ml Vial IVPUSH 40 mg BID@0630,1630 [facility] Administration Pharmacy Consult 1 each 05/19/20 14:32 Consult Rx Perform Med Rec MISCELLANE ONCE PRN Consult order Rivaroxaban 20 mg 05/21/20 11:00 05/21/20 11:34 Rivaroxaban 20 Mg Tablet PO 20 mg DAILY JUAN F Administration Sodium Chloride 3 ml 05/20/20 00:00 05/21/20 07:37 0.9 % Sodium Chloride Flush 3 Ml Syringe IVFLUSH 3 ml QSHIFT [facility] Administration Labs CBC & Chem 7: 05/20/20 04:36 05/20/20 04:36 Assessment and Plan (1) On anticoagulant therapy: Status: Acute (2) Acute GI bleeding: Status: Acute Assessment and Plan: 39 years old male with PMH of her spring disease post ileostomy, on methadone, 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 Acute GI bleeding--has stopped Mild acute blood loss a Hemoglobin stable EGD showed no source of bleed. Will advance diet Transition from IV to PO PPI Outpatient follow up with Dr. Peres in 7 to 10 days Type and screen do History recurrent PE Resume Xarelto Anxiety disorder Atarax as needed History drug abuse continue methadone Consider discharge later today, if not tomorrow
--- NOTE | 2020-05-21 12:29 | MHC.CM.PN ---
Per ROUNDS discussion, Patient may be ready for dc to home soon.CM will continue to follow. No further GIB documented.
[2020-05-21] MEDS: Omeprazole 20 MG CAPSULE.DR PO (20:58)
[2020-05-22 03:20] VITALS: BP 160/90; BP 182/92; PULSE 59; RESP 19; TEMP 35.6; O2SAT 96
[2020-05-22 07:44] VITALS: BP 164/90; PULSE 69; RESP 18; TEMP 36.2; O2SAT 95
[2020-05-22] MEDS: 0.9 % Sodium Chloride Flush 3 ML SYRINGE IVFLUSH (07:59)
[2020-05-22] MEDS: Omeprazole 20 MG CAPSULE.DR PO (08:00)
[2020-05-22] MEDS: Rivaroxaban 20 MG TABLET PO (08:00)
--- NOTE | 2020-05-22 09:27 | P.DS_ITS ---
DS: Providers Provider Date of admission: 05/19/20 16:25 Primary care physician: Sheng Tamayo MD Consults: 05/20/20 15:00 Consult to Gastroenterology Routine Consulting Provider: Arianna Peres Reason for consultation: GI bleed Has provider been notified: Yes DS: Diagnosis Discharge Diagnosis (1) On anticoagulant therapy: Status: Acute (2) Acute GI bleeding: Status: Acute DS: Medications Discharge Medications Home Medications: Home Medications Medication Instructions Recorded Confirmed hydroxyzine HCl 25 mg PO Q8H PRN 05/19/20 05/19/20 methadone 70 mg PO DAILY 05/19/20 05/19/20 rivaroxaban [Xarelto] 20 mg PO DAILY 05/19/20 05/19/20 sertraline 50 mg PO DAILY 05/19/20 05/19/20 Previous Rx's Medication Instructions Recorded omeprazole 20 mg capsule,delayed 20 mg PO DAILY #30 cap 05/13/20 release DS: Summary Hospital Course Hospital Course: HPI from admsssion on 05/19 Chief Complaint: GI bleeding, blood on ileostomy bag A 39 years old male with PMH of her spring disease post ileostomy, on methadone, 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 The patient reported doing fairly well recently but has noticed multiple episodes sudden onset pain in his stomach area that lasts for short period of time then resolves completely more often over the last week or 2 not associated with any nausea or vomiting. This morning he noticed blood in his ileostomy back and was concerned as he had history of previous GI bleed and peptic ulcer so he came to the emergency for evaluation. In ED his blood level has been stable but continue to bleeding into the bag. He reports being not 100% compliant with omeprazole. Evaluated by Gastroenterology who are planning to do endoscopy this morning To be admitted for further evaluation treatment. Hospital course: Patient admitted and monitor and did not have any further bleeding. Hemoglobin went from 13.4 to 11.6. EGD didn't show any discrete area of bleeding. He was on IV PPI and will transition to oral PPI and GI will consider capsule endoscopy on outpatient basis. His diet is advanced from liquid to now regular diet and is tolerating now. Restarting Xarelto for history of PE and Dr. Peres adivises follow up in 7 to 10 days. This morning no issues, no bleeding overnight and comfortable going home. Time Spent with Patient Time attestation: Total time spent providing and/or coordinating discharge services: Physical Exam Vital Signs: Vital Signs: Selected Entries 05/22/20 07:44 Temperature 97.2 F Pulse Rate 69 Respiratory Rate 18 Blood Pressure 164/90 H Pulse Oximetry 95 Oxygen Delivery Me thod Room Air General: AO X 3, no acute distress Resp: CTA bilateral CVS: S1,S2,RRR GI: +BS, NT, no distention, no blood in ostomy bag Skin: No rash Neuro: motor grossly intact Psych: appropriate affect DS: Data Data Completed and Pending Pending studies at discharge: Pending at discharge 05/20/20 14:58 Surgical [PTH] Routine Labs on day of discharge: Laboratory Last Values WBC 3.9 X10*3/uL (4.8-10.8) L 05/20/20 04:36 RBC 4.20 X10*6/uL (4.60-5.80) L 05/20/20 04:36 Hgb 11.6 g/dl (14.0-18.0) L 05/20/20 04:36 Hct 35.9 % (42-52) L 05/20/20 04:36 MCV 85.5 fL (80-98) 05/20/20 04:36 MCH 27.6 pg (27.0-33.0) 05/20/20 04:36 MCHC 32.3 g/dl (31.0-36.0) 05/20/20 04:36 RDW 13.6 % (11.0-16.0) 05/20/20 04:36 Plt Count 134 X10*3/uL (160-400) L 05/20/20 04:36 MPV 10.6 fL (9.4-12.4) 05/20/20 04:36 Immature Gran % (Auto) 0.5 % (0.0-0.4) H 05/19/20 12:13 Neut % (Auto) 65.3 % (45-73) 05/19/20 12:13 Lymph % (Auto) 25.5 % (20-40) 05/19/20 12:13 [place] % (Auto) 6.2 % (2-11) 05/19/20 12:13 Eos % (Auto) 1.8 % (0-4) 05/19/20 12:13 Baso % (Auto) 0.7 % (0-2) 05/19/20 12:13 Lymph # (Auto) 1.1 X10*3/uL (1.2-4.9) L 05/19/20 12:13 [place] # (Auto) 0.3 X10*3/uL (0.1-1.2) 05/19/20 12:13 Eos # (Auto) 0.1 X10*3/uL (0.0-0.4) 05/19/20 12:13 Baso # (Auto) 0.0 X10*3/uL (0.0-0.2) 05/19/20 12:13 Abs Immat Gran (auto) 0.02 X10*3/uL (0.00-0.03) 05/19/20 12:13 Absolute Neuts (auto) 2.9 X10*3/uL (2.0-8.3) 05/19/20 12:13 Absolute Nucleated RBC 0.000 X10*3/uL (0.0-0.012) 05/20/20 04:36 Nucleated RBC % (auto) 0.0 /100WBC (0.0-0.2) 05/20/20 04:36 PT 19.6 SEC (10.8-13.0) H 05/19/20 12:13 INR 1.6 (0.9-1.1) H 05/19/20 12:13 APTT 43.3 SEC (24.1-38.0) H 05/19/20 12:13 Sodium 139 mmol/L (135-145) 05/20/20 04:36 Potassium 4.1 mmol/l (3.3-5.1) 05/20/20 04:36 Chloride 103 mmol/L (96-108) 05/20/20 04:36 Carbon Dioxide 29 mmol/L (22-29) 05/20/20 04:36 Anion Gap 11 (12-20) L 05/20/20 04:36 BUN 12 mg/dL (9-16) 05/20/20 04:36 Creatinine 0.83 mg/dL (0.5-1.4) 05/20/20 04:36 Estim Creat Clear Calc 133.6 05/20/20 04:36 Estimated GFR > 60 05/20/20 04:36 Random Glucose 88 mg/dL (60-115) D 05/20/20 04:36 Calcium 8.5 mg/dL (8.4-10.2) 05/20/20 04:36 Total Bilirubin 0.5 mg/dL (0.0-1.0) 05/19/20 12:13 AST 25 U/L (5-37) 05/19/20 12:13 ALT 33 U/L (0-40) 05/19/20 12:13 Alkaline Phosphatase 87 U/L (39-117) 05/19/20 12:13 Total Protein 7.3 g/dL (6.5-8.0) 05/19/20 12:13 Albumin 4.5 g/dL (3.5-5.0) 05/19/20 12:13 Urine Color YELLOW 05/19/20 12:29 Urine Appearance CLEAR 05/19/20 12:29 Urine pH 6.0 (5.0-8.0) 05/19/20 12:29 Ur Specific [place] >= 1.030 (1.005-1.025) H 05/19/20 12:29 Urine Protein TRACE MG/DL (NEG-TRACE) 05/19/20 12:29 Urine Glucose (UA) NEG MG/DL (NEG) 05/19/20 12:29 Urine Ketones NEG MG/DL (NEG) 05/19/20 12:29 Urine Blood NEG (NEG) 05/19/20 12:29 Urine Nitrite NEG (NEG) 05/19/20 12:29 Ur Leukocyte Esterase NEG (NEG) 05/19/20 12:29 Urine RBC 0-2 /HPF (0) 05/19/20 12:29 Urine WBC 0 /HPF (0-4) 05/19/20 12:29 Ur Squamous Epith Cells TRACE /LPF 05/19/20 12:29 Urine Bacteria NONE /LPF 05/19/20 12:29 Stool Occult Blood POS (NEG) 05/19/20 12:08 COVID-19 (MARIANA) Negative (Negative) 05/19/20 15:22 COVID-19 Clin Com See Note 05/19/20 15:22 Blood Type A Positive 05/19/20 12:48 Antibody Screen NEGATIVE 05/19/20 12:48 Discharge Plan Discharge Anticipated Discharge Date/Time: 05/22/20 09:17 Patient Disposition: Home, Self-Care Referrals: Sheng Tamayo MD [Primary Care Provider] - 1 Week (call for appointment within a week) Arianna Peres MD [Physician] - 1 Week (Call for an appointment and tell the office Dr. Peres wants to see you in a week) Discharge Medications: Continued sertraline 50 mg tablet 50 mg PO DAILY RF: 0 Xarelto 20 mg tablet 20 mg PO DAILY RF: 0 hydroxyzine HCl 25 mg tablet 25 mg PO Q8H PRN (Reason: anxiety) RF: 0 methadone 10 mg/mL Concentrate 70 mg PO DAILY RF: 0 Changed omeprazole 20 mg capsule,delayed release(DR/EC) 40 mg PO DAILY Qty: 30 RF: 0 Discharge Orders: Discharge Order (Routine); Ordered 05/22/20 Ordered By: Silviano Valle Diet: advance to usual diet Activity on Discharge: As tolerated Visit Report Forms: Patient Portal Discharge page Care Plan Goals: To figure out source of bleeding Health Concerns: Recurrent GI bleeding Plan of Treatment: Take Prilosec as recommended with increased dose and follow up with Dr. Peres in a week, call for appointmwnt. Stop taking xarelto if you notice bleeding from ostomy bag
--- NOTE | 2020-05-22 09:34 | MHC.CM.PN ---
Pt discharging home today with no new services. Pt to self resume methadone maintenance services with [facility] tomorrow.
== END 2020-05-22 10:34 | disposition home or self-care (01) | DRG 378 ==
LOC: HO.ED 16:42 → HO.IMC 17:36
PROVIDERS: Internal Medicine Gastroenterology; Nurse Practitioner Primary Care; Admitting Provider Student in an Organized Health Care Education/Training Program; Emergency Provider Emergency Medicine Emergency Medical Services; PCP Internal Medicine; Visit Provider Internal Medicine
PROC: 0DJ08ZZ Inspection of Upper Intestinal Tract, Via Natural or Artificial Opening Endoscopic (ICD-10-PCS; CPT 43235; principal; 2020-05-20 14:30)
DX: K92.2 Gastrointestinal hemorrhage, unspecified (principal); F11.20 Opioid dependence, uncomplicated; Z20.828 Contact with and (suspected) exposure to other viral communicable diseases; F41.9 Anxiety disorder, unspecified; Z93.2 Ileostomy status; Z86.711 Personal history of pulmonary embolism; Z79.01 Long term (current) use of anticoagulants; Z79.899 Other long term (current) drug therapy
CPT/HCPCS: 36415; 74177; 80048; 80053; 81001; 82272; 85014; 85018; 85025; 85027; 85610; 85730; 86850; 86900; 86901; 87635; 88305; 96374; 96375; 99283; 99285; J2405

== ENCOUNTER 2020-05-26 10:25 | Outpatient (REF) | payer MEDICARE, MEDICAID, SELFPAY ==
[2020-05-26 13:05] LABS: MANUAL DIFF FLAG NO
[2020-05-26 13:35] LABS: Basophils Percent Auto 0.6 % (0-2); Eosinophils Absolute Auto 0.1 X10*3/uL (0.0-0.4); Eosinophils Percent Auto 2.5 % (0-4); Hematocrit 40.5 % (42-52); Hemoglobin 13.1 g/dl (14.0-18.0); Imm Gran Abs Auto 0.01 X10*3/uL (0.00-0.03); Imm Gran Pct Auto 0.2 % (0.0-0.4); Lymphocytes Absolute Auto 1.2 X10*3/uL (1.2-4.9); Mean Corpuscular HGB Conc 32.3 g/dl (31.0-36.0); Mean Corpuscular Hemoglobin 27.8 pg (27.0-33.0); Mean Corpuscular Volume 85.8 fL (80-98); Mean Platelet Volume 11.3 fL (9.4-12.4); Monocytes Absolute Auto 0.4 X10*3/uL (0.1-1.2); Monocytes Percent Auto 7.2 % (2-11); Neutrophils Absolute Auto 3.2 X10*3/uL (2.0-8.3); Neutrophils Percent Auto 65.5 % (45-73); Platelet Count 186 X10*3/uL (160-400); Red Blood Count 4.72 X10*6/uL (4.60-5.80); Red Cell Distribution Width 13.2 % (11.0-16.0); White Blood Count 4.9 X10*3/uL (4.8-10.8)
[2020-05-26 13:54] LABS: Alanine Aminotransferase 34 U/L (0-40); Albumin Level 4.5 g/dL (3.5-5.0); Alkaline Phosphatase 92 U/L (39-117); Anion Gap 12 (12-20); Aspartate Amino Transferase 26 U/L (5-37); Bilirubin Total 0.5 mg/dL (0.0-1.0); Blood Urea Nitrogen 13 mg/dL (9-16); C Reactive Protein 0.49 mg/dL (< or = 0.50); Calcium 9.4 mg/dL (8.4-10.2); Carbon Dioxide 28 mmol/L (22-29); Chloride 100 mmol/L (96-108); Estimated Glomerular Filt Rate > 60; Glucose Random 93 mg/dL (60-115); Potassium 4.2 mmol/l (3.3-5.1); Sodium 136 mmol/L (135-145); Total Protein 7.3 g/dL (6.5-8.0)
[2020-05-26 14:17] LABS: Ferritin 108 ng/mL (20-250)
[2020-06-02 11:54] LABS: FIT Int Ctl YES; FIT1 POSITIVE (NEGATIVE); FIT2 POSITIVE (NEGATIVE)
== END 2020-05-26 10:26 | disposition home or self-care (01) ==
LOC: HO.LAB 10:25
PROVIDERS: PCP Internal Medicine; Visit Provider Internal Medicine Gastroenterology
DX: K92.2 Gastrointestinal hemorrhage, unspecified (principal)
CPT/HCPCS: 36415; 80053; 82274; 82728; 85025; 86140

== ENCOUNTER → 2020-06-01 14:59 | Outpatient (BNVA) | payer MEDICARE, MEDICAID, SELFPAY | PROVIDERS: PCP Internal Medicine; Visit Provider Internal Medicine Gastroenterology | DX: K43.5 Parastomal hernia without obstruction or gangrene (principal); K76.0 Fatty (change of) liver, not elsewhere classified; Z86.711 Personal history of pulmonary embolism; Z79.01 Long term (current) use of anticoagulants; Z93.2 Ileostomy status | CPT/HCPCS: 99212 ==

== ENCOUNTER → 2020-06-24 10:21 | Outpatient (BNVA) | payer MEDICARE, MEDICAID, SELFPAY | PROVIDERS: PCP Internal Medicine; Visit Provider Internal Medicine Gastroenterology | DX: Z13.89 Encounter for screening for other disorder (principal) | CPT/HCPCS: Q3014 ==

== ENCOUNTER 2020-08-18 09:03 | Emergency (ER) | payer MEDICARE, MEDICAID, SELFPAY ==
--- NOTE | ~2020-08-18 | XR_ITS ---
EXAMINATION: XR CHEST CLINICAL INFORMATION: Chest pain COMPARISON: Chest 05/13/2013 TECHNIQUE: 2 views of the chest were obtained. FINDINGS: No significant abnormality is noted involving the heart, lungs, mediastinum, bony thorax or soft tissues. XR/XR chest 2V IMPRESSION: Unremarkable chest examination.
[2020-08-18 09:11] VITALS: BP 171/99; PULSE 98; RESP 21; TEMP 38.4; O2SAT 96; BMI 31.3
--- NOTE | 2020-08-18 09:27 | ECG_ITS ---
Test Reason : CP Blood Pressure : / mmHG Vent. Rate : 119 BPM Atrial Rate : 119 BPM P-R Int : 154 ms QRS Dur : 112 ms QT Int : 318 ms P-R-T Axes : 045 010 039 degrees QTc Int : 447 ms Sinus tachycardia Incomplete right bundle branch block Nonspecific T wave abnormality Abnormal ECG When compared with ECG of 13-MAY-2018 18:40, ST no longer elevated in Anterior leads Nonspecific T wave abnormality now evident in Anterior leads Referred By: Jayde Hogan Electronically Signed By:ARA VIERA MD
--- NOTE | 2020-08-18 10:04 | ECG_ITS ---
Test Reason : CHEST PAIN Blood Pressure : / mmHG Vent. Rate : 105 BPM Atrial Rate : 105 BPM P-R Int : 148 ms QRS Dur : 110 ms QT Int : 322 ms P-R-T Axes : 031 011 039 degrees QTc Int : 425 ms Sinus tachycardia RSR' or QR pattern in V1 suggests right ventricular conduction delay Nonspecific T wave abnormality Abnormal ECG When compared with ECG of 18-AUG-2020 09:07, No significant change was found Referred By: Jayde Hogan Electronically Signed By:ARA VIERA MD
[2020-08-18] MEDS: Acetaminophen 325 MG TABLET 975 MG PO (11:16)
[2020-08-18] MEDS: 0.9 % Sodium Chloride 1,000 ML 999 ML IVCONT (11:20)
[2020-08-18 11:24] LABS: Glucose Urine UA NEG (NEG); Leukocyte Esterase Urine NEG (NEG); Nitrite Urine NEG (NEG); PH 6.5 (5.0-8.0); Specific Gravity - Urine >= 1.030 (1.005-1.025); Urine Blood NEG (NEG); Urine Ketones NEG (NEG); Urine Protein NEG (NEG-TRACE)
[2020-08-18 11:25] LABS: Appearance Urine CLEAR; Color Urine YELLOW
[2020-08-18 11:27] LABS: INTERNATIONAL NORM RATIO 1.2 (0.9-1.1); Prothrombin Time 13.7 SEC (10.8-13.0)
[2020-08-18] MEDS: cefTRIAXone sodium 1 GM in 0.9 % Sodium Chloride 50 ML IV (11:31)
[2020-08-18] MEDS: LORazepam 2 MG/ML VIAL 1 MG IVPUSH (11:31)
[2020-08-18 11:35] LABS: Basophils Percent Auto 0.4 % (0-2); Eosinophils Percent Auto 0.5 % (0-4); Hematocrit 36.5 % (42-52); Hemoglobin 11.6 g/dl (14.0-18.0); Imm Gran Abs Auto 0.02 X10*3/uL (0.00-0.03); Imm Gran Pct Auto 0.4 % (0.0-0.4); Lymphocytes Absolute Auto 0.6 X10*3/uL (1.2-4.9); Lymphocytes Percent Auto 10.5 % (20-40); MANUAL DIFF FLAG SCAN; Mean Corpuscular HGB Conc 31.8 g/dl (31.0-36.0); Mean Corpuscular Volume 84.9 fL (80-98); Mean Platelet Volume 10.7 fL (9.4-12.4); Monocytes Absolute Auto 0.5 X10*3/uL (0.1-1.2); Monocytes Percent Auto 8.9 % (2-11); Neutrophils Absolute Auto 4.5 X10*3/uL (2.0-8.3); Neutrophils Percent Auto 79.3 % (45-73); Platelet Count 155 X10*3/uL (160-400); Red Cell Distribution Width 13.6 % (11.0-16.0); SCAN SMEAR FLAG 1; White Blood Count 5.6 X10*3/uL (4.8-10.8)
[2020-08-18 11:41] LABS: Ethanol < 10 mg/dL
[2020-08-18 11:43] LABS: Alanine Aminotransferase 24 U/L (0-40); Albumin Level 4.2 g/dL (3.5-5.0); Alkaline Phosphatase 85 U/L (39-117); Anion Gap 12 (12-20); Aspartate Amino Transferase 23 U/L (5-37); Bilirubin Direct 0.2 mg/dL (0.0-0.5); Bilirubin Total 0.6 mg/dL (0.0-1.0); Blood Urea Nitrogen 12 mg/dL (9-16); Calcium 8.8 mg/dL (8.4-10.2); Carbon Dioxide 28 mmol/L (22-29); Chloride 103 mmol/L (96-108); Creatinine Clr Calc Pharmacy 121.2; Estimated Glomerular Filt Rate > 60; Glucose Random 123 mg/dL (60-115); Potassium 4.4 mmol/L (3.3-5.1); Sodium 139 mmol/L (135-145); Total Protein 6.9 g/dL (6.5-8.0)
[2020-08-18 11:49] LABS: B Type Natriuretic Peptide < 10 pg/mL (<100); Troponin-I High Sensitivity < 3.5 ng/L (<3.5-35.0)
[2020-08-18 11:55] LABS: Influenza A PCR NEGATIVE (Negative); Influenza B PCR NEGATIVE (Negative); Resp Syncy Virus RNA Qual PCR NEGATIVE (Negative); SARS COV2 PCR INHOUSE NEGATIVE (Negative)
[2020-08-18 11:56] LABS: Amphetamine Screen Urine Not Detected (Not Detect); Barbiturates, Urine Not Detected (Not Detect); Benzodiazepines Screen Urine Not Detected (Not Detect); Cannabinoid Screen Urine Not Detected (Not Detect); Cocaine Screen Urine Not Detected (Not Detect); Opiate Screen Urine Not Detected (Not Detect); Phencyclidine Screen Urine Not Detected (Not Detect)
[2020-08-18 12:09] LABS: SLIDE REVIEW VERIFIED
--- NOTE | 2020-08-18 12:43 | ED_ITS ---
HPI - Chest Pain General Chief Complaint: Chest Pain Stated Complaint: CHEST PAIN Time Seen by Provider: 08/18/20 10:03 Source: patient Mode of arrival: ambulatory Limitations: no limitations History of Present Illness HPI narrative: 39-year-old female with a past medical history of pulmonary embolism currently on Xarelto, Hirschsprung's disease, ileostomy, parastomal hernia, hemorrhage from ileostomy and gastric ulcer presenting to the ED with complaints of increased heart rate 2 days ago while he was playing a video game where he won one of the top components in this got him very excited although shortly after the increased heart rate resolved and he started having midsternal chest pain and has been constant since the past 2 days. He reports he also has a fever. Denies any dizziness, headaches, neck pain/stiffness, nausea/vomiting, cough, sore throat, shortness of breath, dyspnea on exertion, palpitations at this time, abdominal pain, back pain, dysuria, constipation, diarrhea or hematuria or any other symptoms complaints or concerns at this time. Denies recent travel or sick contacts. Reports he is taking his medications as previously prescribed. Denies any drug usage including cocaine specifically. MD complaint: chest pain Pertinent past history: other (History of PE on Xarelto) Onset (ago): day(s) (Two days) Timing of current episode: constant Prior episodes: No Onset: other (While playing video games) Pain location: substernal Pain radiation: none Severity: moderate Quality: aching Relieving factors: nothing Exacerbating factors: nothing Treatment prior to arrival: none Related Data Home Medications Medication Instructions Recorded Confirmed Xarelto 20 mg PO DAILY 05/19/20 06/24/20 hydroxyzine HCl 25 mg PO Q8H PRN 05/19/20 06/24/20 methadone 70 mg PO DAILY 05/19/20 06/24/20 Previous Rx's Medication Instructions Recorded omeprazole 40 mg PO DAILY #30 cap 05/22/20 sertraline 50 mg tablet 50 mg PO DAILY #90 tab 07/13/20 acetaminophen [Tylenol Extra 1,000 mg PO QID PRN #14 tab 08/18/20 Strength] azithromycin See Rx Instructions .ROUTE 08/18/20 .COMPLEX #6 tab lorazepam [Ativan] 1 mg PO TID PRN #10 tab 08/18/20 Allergies Allergy/AdvReac Type Severity Reaction Status Date / Time No Known Allergies Allergy Unknown UNKNOWN Verified 06/01/20 15:24 [NO KNOWN ALLERGIES] Review of Systems Review of Systems: Constitutional : No Weight loss, No Fever, No Chills, No Night Sweats, No Fatigue, No Malaise ENT/Mouth : No Hearing loss, No Ear Pain, No Nasal Congestion, No Sinus Pain, No Hoarseness, No sore throat, No Rhinorrhea, No Swallowing Difficulty Eyes: No Eye Pain, No Swelling, No Redness, No Foreign Body, No Discharge, No Vision Changes Cardiovascular : + Chest pain, No SOB, no Dyspnea on Exertion, No Orthopnea, No Edema, No extremity swelling, No Palpitations Respiratory : No Cough, No Sputum, No Wheezing, No Dyspnea Gastrointestinal : No Nausea, No Vomiting, No Diarrhea, No abdominal Pain, No Hematochezia, No Melena Genitourinary : No irregular bleeding, No Dysuria, No Urinary Frequency, No Hematuria, No Urinary Incontinence, No Urgency, No Flank Pain, No Urinary Flow Changes, No Hesitancy Musculoskeletal : No joint pain, No Myalgias, No Joint Swelling Skin : No Skin Lesions, No rash Neuro : No Weakness, No Numbness, No Paresthesias, No Loss of Consciousness, No Dizziness, No Headache Psych : No Anxiety/Panic, No Depression, No SI/HI/AH/VH Heme/Lymph: No Bruising, No Bleeding,No Lymphadenopathy Endocrine : No Polyuria, No Polydipsia, No Temperature Intolerance Yes all other systems are reviewed and are negative [facility] Past Medical History Attestation statement: The following information was validated with the patient. Medical History Hemorrhage from ileostomy Hepatic steatosis Hirschsprung's disease Hx of gastric ulcer Ileostomy in place On anticoagulant therapy Parastomal hernia Pulmonary embolism Surgical History History of colonoscopy Hx of endoscopy Hx of esophagogastroduodenoscopy Status post repair of ventral hernia Family History Family History Father Leukemia Mother HTN (hypertension) Diabetes type 2, controlled Sister Lupus Social History Social History Household Members: Family Housing: House Alcohol intake: current Alcohol intake frequency: does not drink Smoking Status: Never smoker Advance Directives: No Advance Directives Information Provided: No service: No Current occupational status: disabled Physical Exam Vital Signs: Vital Signs: Last Vital Signs Temp 101.1 F H 08/18/20 09:11 Pulse 98 08/18/20 09:11 Resp 21 H 08/18/20 09:11 BP 171/99 H 08/18/20 09:11 Pulse Ox 96 08/18/20 09:11 Body Mass Index 31.3 vital signs have been reviewed as normal and appeared to be correct. Blood pressure normal. Heart rate normal. Respiration rate normal. Temperature normal. Oxygen saturation normal. Appearance: Alert. Oriented X3. No acute distress. Head: Normal external exam. Normocephalic. Atraumatic. Eyes: PERRLA. EOMI. Conjunctiva and sclera normal. Eyelids normal. ENT: EAC normal. TM's Normal. Pharynx normal. Uvula midline. Moist mucous membranes. No trismus noted. No drooling noted. No muffled voice noted. Neck: Normal inspection. Neck supple. FROM. No adenopathy. Trachea midline. Thyroid Normal. No meningeal signs. No neck mass noted. CVS: Normal heart rate and rhythm. Heart sound normal. No murmurs noted. Pulses normal throughout. Respiratory: No respiratory distress. Painless inspiration. Breath sounds normal. No wheezes/rales/rhonchi noted. Chest nontender. No accessory muscle usage noted or decreased air movement noted. Abdomen: Soft and nontender. Bowel sounds normal in all 4 quadrants. No distention noted. No organomegaly noted. No visible injury noted. Back: No CVA tenderness. Full range of motion noted. Skin: Skin warm and dry. Normal skin color. Normal skin turgor. No rashes/lesions/lacerations noted. Extremities: No lower extremity edema. No calf tenderness noted. Extremities exhibit normal range of motion. Extremities nontender. Neuro: Oriented X 3. No motor deficit. No sensory deficit. Reflexes normal. Course Course Course Narrative: 39-year-old female with a past medical history of pulmonary embolism currently on Xarelto, Hirschsprung's disease, ileostomy, parastomal hernia, hemorrhage from ileostomy and gastric ulcer presenting to the ED with complaints of increased heart rate 2 days ago while he was playing a video game where he won one of the top components in this got him very excited although shortly after the increased heart rate resolved and he started having midsternal chest pain and has been constant since the past 2 days. He reports he also has a fever. - on exam patient is very anxious otherwise alert and oriented x3 not in any acute distress. Patient is hypertensive at 171/99, tachycardic at 98, tachypneic at 21 and febrile at 101.1. - concern for ACS versus anxiety versus muscle strain versus viral syndrome versus COVID - labs obtained and all within normal limits including troponin. UA within normal limits no evidence of UTI. Drugs of abuse screen negative. COVID/f ben/RSV negative. Chest x-ray negative for pneumonia or any other acute processes noted. EKG is sinus tachycardia with ventricular rate of 105 with a right bundle-branch block with nonspecific T-wave abnormalities no acute ischemic changes and similar when compared to prior EKG 05/13/2018. - therefore will DC home with symptomatic treatment for atypical chest pain with anxiety and viral syndrome along with instructions to return if any new or worsening symptoms to follow up with primary care provider. Patient understands agrees the plan. MDM - Chest Pain Medical Records Data Attestation: I reviewed the patient's medical records. Lab Data Attestation: I reviewed the patient's lab results. Result diagrams: 08/18/20 11:11 08/18/20 11:11 Labs: Lab Results 08/18/20 08/18/20 08/18/20 Range/Units 11:10 11:10 11:10 WBC (4.8-10.8) X10*3/uL RBC (4.60-5.80) X10*6/uL Hgb (14.0-18.0) g/dl Hct (42-52) % MCV (80-98) fL MCH (27.0-33.0) pg MCHC (31.0-36.0) g/dl RDW (11.0-16.0) % Plt Count (160-400) X10*3/uL MPV (9.4-12.4) fL Immature Gran % (Auto) (0.0-0.4) % Neut % (Auto) (45-73) % Lymph % (Auto) (20-40) % Blanco % (Auto) (2-11) % Eos % (Auto) (0-4) % Baso % (Auto) (0-2) % Lymph # (Auto) (1.2-4.9) X10*3/uL Blanco # (Auto) (0.1-1.2) X10*3/uL Eos # (Auto) (0.0-0.4) X10*3/uL Baso # (Auto) (0.0-0.2) X10*3/uL Abs Immat Gran (auto) (0.00-0.03) X10*3/uL Absolute Neuts (auto) (2.0-8.3) X10*3/uL Absolute Nucleated RBC (0.0-0.012) X10*3/uL Nucleated RBC % (auto) (0.0-0.2) /100WBC Smear Tech's Comments PT (10.8-13.0) SEC INR (0.9-1.1) Sodium (135-145) mmol/L Potassium (3.3-5.1) mmol/L Chloride (96-108) mmol/L Carbon Dioxide (22-29) mmol/L Anion Gap (12-20) BUN (9-16) mg/dL Creatinine (0.5-1.4) mg/dL Estim Creat Clear Calc Estimated GFR Random Glucose (60-115) mg/dL Lactic Acid (0.5-2.0) mmol/L Calcium (8.4-10.2) mg/dL Magnesium (1.6-2.6) mg/dL Total Bilirubin (0.0-1.0) mg/dL Direct Bilirubin (0.0-0.5) mg/dL AST (5-37) U/L ALT (0-40) U/L Alkaline Phosphatase (39-117) U/L Total Creatine Kinase (38-174) U/L Troponin I High Sens < 3.5 (<3.5-35.0) ng/L B-Natriuretic Peptide < 10 (<100) pg/mL Total Protein (6.5-8.0) g/dL Albumin (3.5-5.0) g/dL Urine Color Urine Appearance Urine pH (5.0-8.0) Ur Specific Maria Stein (1.005-1.025) Urine Protein (NEG-TRACE) MG/DL Urine Glucose (UA) (NEG) MG/DL Urine Ketones (NEG) MG/DL Urine Blood (NEG) Urine Nitrite (NEG) Ur Leukocyte Esterase (NEG) Urine Opiates Screen (Not Detect) Ur Barbiturates Screen (Not Detect) Ur Phencyclidine Scrn (Not Detect) Ur Amphetamines Screen (Not Detect) U Benzodiazepines Scrn (Not Detect) Urine Cocaine Screen (Not Detect) U Marijuana (THC) Screen (Not Detect) Ethyl Alcohol < 10 mg/dL Coronavirus (PCR) (Negative) Influenza Type A (PCR) (Negative) Influenza Type B (PCR) (Negative) RSV RNA Qual (PCR) (Negative) 08/18/20 08/18/20 08/18/20 Range/Units 11:11 11:11 11:11 WBC 5.6 (4.8-10.8) X10*3/uL RBC 4.30 L (4.60-5.80) X10*6/uL Hgb 11.6 L (14.0-18.0) g/dl Hct 36.5 L (42-52) % MCV 84.9 (80-98) fL MCH 27.0 (27.0-33.0) pg MCHC 31.8 (31.0-36.0) g/dl RDW 13.6 (11.0-16.0) % Plt Count 155 L (160-400) X10*3/uL MPV 10.7 (9.4-12.4) fL Immature Gran % (Auto) 0.4 (0.0-0.4) % Neut % (Auto) 79.3 H (45-73) % Lymph % (Auto) 10.5 L (20-40) % Blanco % (Auto) 8.9 (2-11) % Eos % (Auto) 0.5 (0-4) % Baso % (Auto) 0.4 (0-2) % Lymph # (Auto) 0.6 L (1.2-4.9) X10*3/uL Blanco # (Auto) 0.5 (0.1-1.2) X10*3/uL Eos # (Auto) 0.0 (0.0-0.4) X10*3/uL Baso # (Auto) 0.0 (0.0-0.2) X10*3/uL Abs Immat Gran (auto) 0.02 (0.00-0.03) X10*3/uL Absolute Neuts (auto) 4.5 (2.0-8.3) X10*3/uL Absolute Nucleated RBC 0.000 (0.0-0.012) X10*3/uL Nucleated RBC % (auto) 0.0 (0.0-0.2) /100WBC Smear Tech's Comments VERIFIED PT 13.7 H D (10.8-13.0) SEC INR 1.2 H (0.9-1.1) Sodium 139 (135-145) mmol/L Potassium 4.4 (3.3-5.1) mmol/L Chloride 103 (96-108) mmol/L Carbon Dioxide 28 (22-29) mmol/L Anion Gap 12 (12-20) BUN 12 (9-16) mg/dL Creatinine 0.87 (0.5-1.4) mg/dL Estim Creat Clear Calc 121.2 Estimated GFR > 60 Random Glucose 123 H (60-115) mg/dL Lactic Acid (0.5-2.0) mmol/L Calcium 8.8 D (8.4-10.2) mg/dL Magnesium 2.0 (1.6-2.6) mg/dL Total Bilirubin 0.6 (0.0-1.0) mg/dL Direct Bilirubin 0.2 (0.0-0.5) mg/dL AST 23 (5-37) U/L ALT 24 (0-40) U/L Alkaline Phosphatase 85 (39-117) U/L Total Creatine Kinase 40 (38-174) U/L Troponin I High Sens (<3.5-35.0) ng/L B-Natriuretic Peptide (<100) pg/mL Total Protein 6.9 (6.5-8.0) g/dL Albumin 4.2 (3.5-5.0) g/dL Urine Color Urine Appearance Urine pH (5.0-8.0) Ur Specific Maria Stein (1.005-1.025) Urine Protein (NEG-TRACE) MG/DL Urine Glucose (UA) (NEG) MG/DL Urine Ketones (NEG) MG/DL Urine Blood (NEG) Urine Nitrite (NEG) Ur Leukocyte Esterase (NEG) Urine Opiates Screen (Not Detect) Ur Barbiturates Screen (Not Detect) Ur Phencyclidine Scrn (Not Detect) Ur Amphetamines Screen (Not Detect) U Benzodiazepines Scrn (Not Detect) Urine Cocaine Screen (Not Detect) U Marijuana (THC) Screen (Not Detect) Ethyl Alcohol mg/dL Coronavirus (PCR) (Negative) Influenza Type A (PCR) (Negative) Influenza Type B (PCR) (Negative) RSV RNA Qual (PCR) (Negative) 08/18/20 08/18/20 08/18/20 Range/Units 11:11 11:11 11:11 WBC (4.8-10.8) X10*3/uL RBC (4.60-5.80) X10*6/uL Hgb (14.0-18.0) g/dl Hct (42-52) % MCV (80-98) fL MCH (27.0-33.0) pg MCHC (31.0-36.0) g/dl RDW (11.0-16.0) % Plt Count (160-400) X10*3/uL MPV (9.4-12.4) fL Immature Gran % (Auto) (0.0-0.4) % Neut % (Auto) (45-73) % Lymph % (Auto) (20-40) % Blanco % (Auto) (2-11) % Eos % (Auto) (0-4) % Baso % (Auto) (0-2) % Lymph # (Auto) (1.2-4.9) X10*3/uL Blanco # (Auto) (0.1-1.2) X10*3/uL Eos # (Auto) (0.0-0.4) X10*3/uL Baso # (Auto) (0.0-0.2) X10*3/uL Abs Immat Gran (auto) (0.00-0.03) X10*3/uL Absolute Neuts (auto) (2.0-8.3) X10*3/uL Absolute Nucleated RBC (0.0-0.012) X10*3/uL Nucleated RBC % (auto) (0.0-0.2) /100WBC Smear Tech's Comments PT (10.8-13.0) SEC INR (0.9-1.1) Sodium (135-145) mmol/L Potassium (3.3-5.1) mmol/L Chloride (96-108) mmol/L Carbon Dioxide (22-29) mmol/L Anion Gap (12-20) BUN (9-16) mg/dL Creatinine (0.5-1.4) mg/dL Estim Creat Clear Calc Estimated GFR Random Glucose (60-115) mg/dL Lactic Acid 1.0 (0.5-2.0) mmol/L Calcium (8.4-10.2) mg/dL Magnesium (1.6-2.6) mg/dL Total Bilirubin (0.0-1.0) mg/dL Direct Bilirubin (0.0-0.5) mg/dL AST (5-37) U/L ALT (0-40) U/L Alkaline Phosphatase (39-117) U/L Total Creatine Kinase (38-174) U/L Troponin I High Sens (<3.5-35.0) ng/L B-Natriuretic Peptide (<100) pg/mL Total Protein (6.5-8.0) g/dL Albumin (3.5-5.0) g/dL Urine Color YELLOW Urine Appearance CLEAR Urine pH 6.5 (5.0-8.0) Ur Specific Maria Stein >= 1.030 H (1.005-1.025) Urine Protein NEG (NEG-TRACE) MG/DL Urine Glucose (UA) NEG (NEG) MG/DL Urine Ketones NEG (NEG) MG/DL Urine Blood NEG (NEG) Urine Nitrite NEG (NEG) Ur Leukocyte Esterase NEG (NEG) Urine Opiates Screen (Not Detect) Ur Barbiturates Screen (Not Detect) Ur Phencyclidine Scrn (Not Detect) Ur Amphetamines Screen (Not Detect) U Benzodiazepines Scrn (Not Detect) Urine Cocaine Screen (Not Detect) U Marijuana (THC) Screen (Not Detect) Ethyl Alcohol mg/dL Coronavirus (PCR) NEGATIVE (Negative) Influenza Type A (PCR) NEGATIVE (Negative) Influenza Type B (PCR) NEGATIVE (Negative) RSV RNA Qual (PCR) NEGATIVE (Negative) 08/18/20 Range/Units 11:11 WBC (4.8-10.8) X10*3/uL RBC (4.60-5.80) X10*6/uL Hgb (14.0-18.0) g/dl Hct (42-52) % MCV (80-98) fL MCH (27.0-33.0) pg MCHC (31.0-36.0) g/dl RDW (11.0-16.0) % Plt Count (160-400) X10*3/uL MPV (9.4-12.4) fL Immature Gran % (Auto) (0.0-0.4) % Neut % (Auto) (45-73) % Lymph % (Auto) (20-40) % Blanco % (Auto) (2-11) % Eos % (Auto) (0-4) % Baso % (Auto) (0-2) % Lymph # (Auto) (1.2-4.9) X10*3/uL Blanco # (Auto) (0.1-1.2) X10*3/uL Eos # (Auto) (0.0-0.4) X10*3/uL Baso # (Auto) (0.0-0.2) X10*3/uL Abs Immat Gran (auto) (0.00-0.03) X10*3/uL Absolute Neuts (auto) (2.0-8.3) X10*3/uL Absolute Nucleated RBC (0.0-0.012) X10*3/uL Nucleated RBC % (auto) (0.0-0.2) /100WBC Smear Tech's Comments PT (10.8-13.0) SEC INR (0.9-1.1) Sodium (135-145) mmol/L Potassium (3.3-5.1) mmol/L Chloride (96-108) mmol/L Carbon Dioxide (22-29) mmol/L Anion Gap (12-20) BUN (9-16) mg/dL Creatinine (0.5-1.4) mg/dL Estim Creat Clear Calc Estimated GFR Random Glucose (60-115) mg/dL Lactic Acid (0.5-2.0) mmol/L Calcium (8.4-10.2) mg/dL Magnesium (1.6-2.6) mg/dL Total Bilirubin (0.0-1.0) mg/dL Direct Bilirubin (0.0-0.5) mg/dL AST (5-37) U/L ALT (0-40) U/L Alkaline Phosphatase (39-117) U/L Total Creatine Kinase (38-174) U/L Troponin I High Sens (<3.5-35.0) ng/L B-Natriuretic Peptide (<100) pg/mL Total Protein (6.5-8.0) g/dL Albumin (3.5-5.0) g/dL Urine Color Urine Appearance Urine pH (5.0-8.0) Ur Specific Maria Stein (1.005-1.025) Urine Protein (NEG-TRACE) MG/DL Urine Glucose (UA) (NEG) MG/DL Urine Ketones (NEG) MG/DL Urine Blood (NEG) Urine Nitrite (NEG) Ur Leukocyte Esterase (NEG) Urine Opiates Screen Not Detected (Not Detect) Ur Barbiturates Screen Not Detected (Not Detect) Ur Phencyclidine Scrn Not Detected (Not Detect) Ur Amphetamines Screen Not Detected (Not Detect) U Benzodiazepines Scrn Not Detected (Not Detect) Urine Cocaine Screen Not Detected (Not Detect) U Marijuana (THC) Screen Not Detected (Not Detect) Ethyl Alcohol mg/dL Coronavirus (PCR) (Negative) Influenza Type A (PCR) (Negative) Influenza Type B (PCR) (Negative) RSV RNA Qual (PCR) (Negative) Imaging Data Chest x-ray: Attestation: I personally reviewed and interpreted this imaging study as follows: Radiologist's impression: FINDINGS: No significant abnormality is noted involving the heart, lungs, mediastinum, bony thorax or soft tissues. XR/XR chest 2V IMPRESSION: Unremarkable chest examination. ECG Data ECG #1: Attestation: I personally reviewed and interpreted this ECG as follows: ECG interpretation date: 08/18/20 ECG interpretation time: 10:10 Interpretation: Sinus tachycardia with ventricular rate of 105 with a right bundle-branch block with nonspecific T-wave abnormalities no acute ischemic changes and similar when compared to prior EKG 05/13/2018. Scores Heart Score History: -0- slightly suspicious ECG: -1- non specific repolarization disturbance Age: -0- < or = 45 Risk factory: -1- 1 or 2 risk factors Troponin: -0- < or = normal limit Score: 2 Risk: 1.7% Critical Care Time Critical Care Time Critical Care Time: Yes Total Critical Care Time: 60 Attestation: I personally attest to this time spent taking care of the patient Discharge Plan Discharge Clinical Impression: Atypical chest pain, Fever, Acute viral syndrome, Anxiety Patient Disposition: Home, Self-Care Instructions: Chest Pain (ED), Viral Syndrome (ED), Anxiety (ED) Prescriptions: New lorazepam [Ativan] 1 mg tablet 1 mg PO TID PRN (Reason: anxiety) Qty: 10 RF: 0 azithromycin 250 mg tablet See Rx Instructions .ROUTE .COMPLEX Qty: 6 RF: 0 acetaminophen [Tylenol Extra Strength] 500 mg tablet 1,000 mg PO QID PRN (Reason: fever or pain) Qty: 14 RF: 0 No Action sertraline 50 mg tablet 50 mg PO DAILY Qty: 90 RF: 0 Xarelto 20 mg tablet 20 mg PO DAILY RF: 0 hydroxyzine HCl 25 mg tablet 25 mg PO Q8H PRN (Reason: anxiety) RF: 0 methadone 10 mg/mL Concentrate 70 mg PO DAILY RF: 0 omeprazole 20 mg capsule,delayed release(DR/EC) 40 mg PO DAILY Qty: 30 RF: 0 Referrals: Sheng Tamayo MD [Primary Care Provider] - 2 days Print Language: Palauan
== END 2020-08-18 14:04 | disposition home or self-care (01) ==
PROVIDERS: Physician Assistant Medical; Emergency Provider Emergency Medicine Emergency Medical Services; PCP Internal Medicine
DX: R07.89 Other chest pain (principal); F41.9 Anxiety disorder, unspecified; B34.9 Viral infection, unspecified; Z20.822 Contact with and (suspected) exposure to COVID-19; R50.9 Fever, unspecified; Z86.711 Personal history of pulmonary embolism; Z79.01 Long term (current) use of anticoagulants; Z79.899 Other long term (current) drug therapy
CPT/HCPCS: 0241U; 36415; 71046; 80048; 80076; 80307; 80320; 81003; 82550; 83605; 83735; 83880; 84484; 85025; 85610; 87040; 93005; 96361; 96365; 96375; 99283; 99285; J0696; J2060

== ENCOUNTER 2021-02-28 11:52 | Emergency (ER) | payer MEDICARE, MEDICAID, SELFPAY ==
[2021-02-28 11:59] VITALS: BP 154/114; PULSE 93; RESP 16; TEMP 36.9; O2SAT 96; BMI 39.1
--- NOTE | 2021-02-28 12:27 | ED_ITS ---
HPI - GI Bleed General Chief complaint: GI Bleed Stated complaint: colostomy bag with blood in it Time Seen by Provider: 02/28/21 12:12 Source: patient Mode of arrival: ambulatory Limitations: no limitations History of Present Illness HPI Narrative: 40 yo male with past medical history of PE on xarelto, Hirschsprung disease status post ileostomy, anxiety, PUD here with complaints of bleeding from ileostomy bag since yesterday morning. Patient tells me that he woke yesterday morning with bright red blood feeling half of his bag. He emptied it and did not have an additional episode yesterday. However with wak ing he noticed to have half of his bag again filled with bright red blood. He has had some clots. He denies any abdominal pain, vomiting. 07/[address] López showed a gastric ulcer with visible vessel which was treated with epinephrine and cautery. 10/[address] Peres showed gastritis and no ulcers. History multiple admits for same. Occasionally takes aspirin and anti-inflammatory medication for aches and pains Related Data Home Medications Medication Instructions Recorded Confirmed methadone 10 mg/mL oral concentrate 70 mg PO DAILY 05/19/20 02/28/21 hydroxyzine HCl 25 mg tablet 1 - 2 tab PO Q8H PRN 02/28/21 02/28/21 omeprazole 40 mg capsule,delayed 40 mg PO DAILY@0630 02/28/21 02/28/21 release sertraline 100 mg tablet 1 tab PO DAILY 02/28/21 02/28/21 Previous Rx's Medication Instructions Recorded rivaroxaban 20 mg tablet (Xarelto) 20 mg PO DAILY #90 tab 02/06/21 Allergies Allergy/AdvReac Type Severity Reaction Status Date / Time No Known Allergies Allergy Unknown UNKNOWN Verified 02/28/21 12:05 [NO KNOWN ALLERGIES] Review of Systems Review of Systems: Yes all other systems are reviewed and are negative Constitutional: Constitutional: Reports no additional constitutional comp laints, Denies body ache(s), Denies chills, Denies fever(s), Denies headache(s) and Denies weakness Eyes: Eyes: Reports no additional eye complaints and Denies change in vision ENT: Reports system reviewed and no additional complaints, except as documented, Denies dizziness, Denies headache(s), Denies nasal congestion, Denies nasal discharge and Denies neck pain Cardiovascular: Cardiovascular: Reports no additional cardiovascular complaints, Denies chest pain, Denies leg edema and Denies dyspnea Respiratory: Respiratory: Reports no additional respiratory complaints, Denies cough and Denies dyspnea Gastrointestinal: Gastrointestinal: Reports no additional gastrointestinal complaints, Denies abdominal pain, Reports hematochezia, Denies diarrhea, Denies nausea and Denies vomiting Genitourinary: Genitourinary: Denies urinary incontinence Musculoskeletal: Musculoskeletal: Reports no additional musculoskeletal complaints, Denies back pain, Denies arthralgias, Denies joint swelling, Denies neck pain, Denies numbness and Denies tingling Integumentary/Breasts: Skin/Breast: Reports system reviewed and no additional complaints, except as docu and Denies rash Neurologic: Reports system reviewed and no additional complaints, except as documented, Denies Abnormal speech present, Denies dizziness, Denies headache(s), Denies numbness, Denies tingling and Denies weakness PMFSH Past Medical History Attestation statement: The following information was validated with the patient. Source: old records reviewed and nursing notes reviewed Medical History Hemorrhage from ileostomy Hepatic steatosis Hirschsprung's disease Hx of gastric ulcer Ileostomy in place Localized swelling of both lower legs On anticoagulant therapy Parastomal hernia Pulmonary embolism Surgical History History of colonoscopy Hx of endoscopy Hx of esophagogastroduodenoscopy Status post repair of ventral hernia Family History Family History Father Leukemia Mother HTN (hypertension) Diabetes type 2, controlled Sister Lupus Social History Social History Household Members: Family Household Members Other:: Lives with his mother. His father just recently Housing: House Alcohol intake: current Alcohol intake frequency: does not drink Advance Directives: No Advance Directives Information Provided: No service: No Current occupational status: disabled Physical Exam Vital Signs: Vital Signs: Last Vital Signs Temp 98.3 F 02/28/21 16:17 Pulse 78 08/23/21 16:17 Resp 20 02/28/21 16:17 BP 155/90 H 02/28/21 16:17 Pulse Ox 96 02/28/21 16:17 Body Mass Index 39.1 Const: General: cooperative, healthy appearing, comfortable and no acute distress Orientation/consciousness: patient oriented x3 Limitations: no limitations HENMT: Head: Yes normal to inspection Ears: hearing grossly normal bilaterally General nose exam: Normal external nose present Face and sinus: Yes normal facial exam Mouth: Normal oral and palatal mucosa present Throat: Yes posterior oropharynx normal Eyes: General: appearance normal, both eyes and all related structures Pupils: Equal, round and reactive pupils present Neck: Neck: Yes normal visual inspection Chest: Chest palpation & inspection: normal inspection of the chest Resp: Effort & Inspection: normal respiratory effort Auscultation: clear to auscultation bilaterally Cardio: Rate: regular rate Rhythm: regular rhythm Peripheral pulses: Peripheral pulses 2+ throughout GI: Other: Yes visible herniation (significant hernia involving area around the ileostomy)?? Ileostomy noted to the right lower quadrant. Bright red blood noted in the ileostomy bag. No clots. Occult positive Inspection: Yes normal to inspection Palpation (GI): Soft to palpation and nontender Auscultation: normal bowel sounds Back/Spine/Pelvis: Thoracic/Lumbar Spine: thoracic and lumbar spine normal to inspection Skin: General skin exam: no rashes or lesions noted Neuro: General: patient oriented x3, no focal motor deficits and normal sensation to monofilament Cranial nerves: Yes Equal, round and reactive p upils present Cognition (Neuro): normal cognition Speech: No Abnormal speech present Gait exam (Neuro): Normal gait present Motor exam (neuro): 5/5 motor strength present throughout Extrem: General: Yes normal to inspection, Yes no pedal edema and Yes no calf tenderness Course Course Course Narrative: 40-year-old male here with bleeding from ileostomy bag since yesterday. History of same with multiple admits in the past here. Is on Xarelto for history of pulmonary embolisms. No abdominal pain or vomiting. On exam the patient does have bright red blood noted in his ileostomy bag. Will send a called. Will check labs including type and screen. Once resulted will discuss with GI 1330-hemoglobin stable. Patient is noted to have bright red blood in his ileostomy bag. Will discuss with GI. 1335-spoke to Dr. Ramos from GI. Recommended admit for observation. Clear liquids, will likely scope through ileostomy in 48 hours due to patient being on Xarelto. Hold Xarelto. CT angio tomorrow. No need for this today if bleeding stable. Call out to medicine to admit. 1345-Spoke to Dr Bonilla. 1559-Spoke to Marleni ANGEL who accepted admission. 1700-patient was seen by Dr. Ramos from GI. There was discussion with general surgery (Marie/Aniket). This bleeding was thought to be secondary to granulation tissue. They recommended he be discharged home and follow-up in the office this week. Recommended holding Xarelto until seen outpatient this week. Reviewed worrisome signs and symptoms of when to return to the emergency department. Comfortable discharge home. MDM - GI Bleed Medical Records Attestation: I reviewed the patient's medical records. Lab Data Attestation: I reviewed the patient's lab results. Result diagrams: 02/28/21 12:29 02/28/21 12:29 Labs: Lab Results 02/28/21 02/28/21 02/28/21 Range/Units 12:29 12:29 12:29 WBC 4.6 L (4.8-10.8) X10*3/uL RBC 4.52 L (4.60-5.80) X10*6/uL Hgb 12.2 L (14.0-18.0) g/dl Hct 37.7 L (42-52) % MCV 83.4 (80-98) fL MCH 27.0 (27.0-33.0) pg MCHC 32.4 (31.0-36.0) g/dl RDW 14.6 (11.0-16.0) % Plt Count 152 L (160-400) X10*3/uL MPV 11.5 (9.4-12.4) fL Immature Gran % (Auto) 0.6 H (0.0-0.4) % Neut % (Auto) 58.5 (45-73) % Lymph % (Auto) 29.3 (20-40) % [place] % (Auto) 8.2 (2-11) % Eos % (Auto) 3.0 (0-4) % Baso % (Auto) 0.4 (0-2) % Lymph # (Auto) 1.4 (1.2-4.9) X10*3/uL [place] # (Auto) 0.4 (0.1-1.2) X10*3/uL Eos # (Auto) 0.1 (0.0-0.4) X10*3/uL Baso # (Auto) 0.0 (0.0-0.2) X10*3/uL Abs Immat Gran (auto) 0.03 (0.00-0.03) X10*3/uL Absolute Neuts (auto) 2.7 (2.0-8.3) X10*3/uL Absolute Nucleated RBC 0.000 (0.0-0.012) X10*3/uL Nucleated RBC % (auto) 0.0 (0.0-0.2) /100WBC PT 11.6 (9.9-13.0) SEC INR 1.0 (0.9-1.1) Sodium 141 (135-145) mmol/L Potassium 4.0 (3.3-5.1) mmol/L Chloride 104 (96-108) mmol/L Carbon Dioxide 30 H (22-29) mmol/L Anion Gap 11 L (12-20) BUN 12 (9-16) mg/dL Creatinine 0.82 (0.5-1.4) mg/dL Estim Creat Clear Calc 142.5 Estimated GFR > 60 Random Glucose 139 H (60-115) mg/dL Calcium 9.5 D (8.4-10.2) mg/dL Total Bilirubin (0.0-1.0) mg/dL Direct Bilirubin (0.0-0.5) mg/dL AST (5-37) U/L ALT (0-40) U/L Alkaline Phosphatase (39-117) U/L Total Protein (6.5-8.0) g/dL Albumin (3.5-5.0) g/dL Stool Occult Blood (NEGATIVE) COVID-19 ([facility]) (Negative) COVID-19 Clin Com Blood Type Antibody Screen 02/28/21 02/28/21 02/28/21 Range/Units 12:29 12:29 12:47 WBC (4.8-10.8) X10*3/uL RBC (4.60-5.80) X10*6/uL Hgb (14.0-18.0) g/dl Hct (42-52) % MCV (80-98) fL MCH (27.0-33.0) pg MCHC (31.0-36.0) g/dl RDW (11.0-16.0) % Plt Count (160-400) X10*3/uL MPV (9.4-12.4) fL Immature Gran % (Auto) (0.0-0.4) % Neut % (Auto) (45-73) % Lymph % (Auto) (20-40) % [place] % (Auto) (2-11) % Eos % (Auto) (0-4) % Baso % (Auto) (0-2) % Lymph # (Auto) (1.2-4.9) X10*3/uL [place] # (Auto) (0.1-1.2) X10*3/uL Eos # (Auto) (0.0-0.4) X10*3/uL Baso # (Auto) (0.0-0.2) X10*3/uL Abs Immat Gran (auto) (0.00-0.03) X10*3/uL Absolute Neuts (auto) (2.0-8.3) X10*3/uL Absolute Nucleated RBC (0.0-0.012) X10*3/uL Nucleated RBC % (auto) (0.0-0.2) /100WBC PT (9.9-13.0) SEC INR (0.9-1.1) Sodium (135-145) mmol/L Potassium (3.3-5.1) mmol/L Chloride (96-108) mmol/L Carbon Dioxide (22-29) mmol/L Anion Gap (12-20) BUN (9-16) mg/dL Creatinine (0.5-1.4) mg/dL Estim Creat Clear Calc Estimated GFR Random Glucose (60-115) mg/dL Calcium (8.4-10.2) mg/dL Total Bilirubin 0.5 (0.0-1.0) mg/dL Direct Bilirubin 0.2 (0.0-0.5) mg/dL AST 30 (5-37) U/L ALT 42 H (0-40) U/L Alkaline Phosphatase 96 (39-117) U/L Total Protein 6.9 (6.5-8.0) g/dL Albumin 4.2 (3.5-5.0) g/dL Stool Occult Blood (NEGATIVE) COVID-19 ([facility]) Negative (Negative) COVID-19 Clin Com See Note Blood Type A Positive Antibody Screen NEGATIVE 02/28/21 Range/Units 12:47 WBC (4.8-10.8) X10*3/uL RBC (4.60-5.80) X10*6/uL Hgb (14.0-18.0) g/dl Hct (42-52) % MCV (80-98) fL MCH (27.0-33.0) pg MCHC (31.0-36.0) g/dl RDW (11.0-16.0) % Plt Count (160-400) X10*3/uL MPV (9.4-12.4) fL Immature Gran % (Auto) (0.0-0.4) % Neut % (Auto) (45-73) % Lymph % (Auto) (20-40) % [place] % (Auto) (2-11) % Eos % (Auto) (0-4) % Baso % (Auto) (0-2) % Lymph # (Auto) (1.2-4.9) X10*3/uL [place] # (Auto) (0.1-1.2) X10*3/uL Eos # (Auto) (0.0-0.4) X10*3/uL Baso # (Auto) (0.0-0.2) X10*3/uL Abs Immat Gran (auto) (0.00-0.03) X10*3/uL Absolute Neuts (auto) (2.0-8.3) X10*3/uL Absolute Nucleated RBC (0.0-0.012) X10*3/uL Nucleated RBC % (auto) (0.0-0.2) /100WBC PT (9.9-13.0) SEC INR (0.9-1.1) Sodium (135-145) mmol/L Potassium (3.3-5.1) mmol/L Chloride (96-108) mmol/L Carbon Dioxide (22-29) mmol/L Anion Gap (12-20) BUN (9-16) mg/dL Creatinine (0.5-1.4) mg/dL Estim Creat Clear Calc Estimated GFR Random Glucose (60-115) mg/dL Calcium (8.4-10.2) mg/dL Total Bilirubin (0.0-1.0) mg/dL Direct Bilirubin (0.0-0.5) mg/dL AST (5-37) U/L ALT (0-40) U/L Alkaline Phosphatase (39-117) U/L Total Protein (6.5-8.0) g/dL Albumin (3.5-5.0) g/dL Stool Occult Blood POSITIVE (NEGATIVE) COVID-19 ([facility]) (Negative) COVID-19 Clin Com Blood Type Antibody Screen Discharge Plan Discharge Clinical Impression: Hemorrhage from ileostomy Patient Disposition: Home, Self-Care Instructions: Ileostomy Care (ED) Additional Instructions: Our general surgeons believe this bleeding is from scar tissue around your stoma. They have recommended following up with Dr Macrial this week for a follow-up. They have also recommended you hold the xarelto until you see Dr Cait cadet outpatient Return for vomiting, abdominal pain, fever >100.4 and increasing bleeding from site. Prescriptions: No Action sertraline 100 mg tablet 1 tab PO DAILY RF: 0 hydroxyzine HCl 25 mg tablet 1 - 2 tab PO Q8H PRN (Reason: anxiety) RF: 0 omeprazole 40 mg capsule,delayed release(DR/EC) 40 mg PO DAILY@0630 RF: 0 methadone 10 mg/mL Concentrate 70 mg PO DAILY RF: 0 Xarelto 20 mg tablet 20 mg PO DAILY Qty: 90 RF: 4 Referrals: Stuart Marcial MD [Physician] - 2 days Interventions: ED Discharge Assessment Last Done: 02/28/21 17:13
[2021-02-28 12:55] LABS: MANUAL DIFF FLAG NO
[2021-02-28 12:56] LABS: Basophils Percent Auto 0.4 % (0-2); Eosinophils Absolute Auto 0.1 X10*3/uL (0.0-0.4); Hematocrit 37.7 % (42-52); Hemoglobin 12.2 g/dl (14.0-18.0); Imm Gran Abs Auto 0.03 X10*3/uL (0.00-0.03); Imm Gran Pct Auto 0.6 % (0.0-0.4); Lymphocytes Absolute Auto 1.4 X10*3/uL (1.2-4.9); Lymphocytes Percent Auto 29.3 % (20-40); Mean Corpuscular HGB Conc 32.4 g/dl (31.0-36.0); Mean Corpuscular Volume 83.4 fL (80-98); Mean Platelet Volume 11.5 fL (9.4-12.4); Monocytes Absolute Auto 0.4 X10*3/uL (0.1-1.2); Monocytes Percent Auto 8.2 % (2-11); Neutrophils Absolute Auto 2.7 X10*3/uL (2.0-8.3); Neutrophils Percent Auto 58.5 % (45-73); Platelet Count 152 X10*3/uL (160-400); Red Blood Count 4.52 X10*6/uL (4.60-5.80); Red Cell Distribution Width 14.6 % (11.0-16.0); White Blood Count 4.6 X10*3/uL (4.8-10.8)
[2021-02-28 12:58] LABS: OBS Int Ctl Valid YES; OBS1 POSITIVE (NEGATIVE)
--- NOTE | 2021-02-28 13:09 | PHA.MEDREC ---
Pharmacy Consult ? Medication Reconciliation Pharmacy has completed the medication reconciliation. SPOKE WITH PATIENT IN ED.
[2021-02-28 13:12] LABS: COVID-19 Test Negative (Negative)
[2021-02-28 13:15] LABS: Prothrombin Time 11.6 SEC (9.9-13.0)
[2021-02-28 13:16] LABS: Anion Gap 11 (12-20); Blood Urea Nitrogen 12 mg/dL (9-16); Calcium 9.5 mg/dL (8.4-10.2); Carbon Dioxide 30 mmol/L (22-29); Chloride 104 mmol/L (96-108); Creatinine Clr Calc Pharmacy 142.5; Estimated Glomerular Filt Rate > 60; Glucose Random 139 mg/dL (60-115); Sodium 141 mmol/L (135-145)
[2021-02-28 13:18] LABS: Alanine Aminotransferase 42 U/L (0-40); Albumin Level 4.2 g/dL (3.5-5.0); Alkaline Phosphatase 96 U/L (39-117); Aspartate Amino Transferase 30 U/L (5-37); Bilirubin Direct 0.2 mg/dL (0.0-0.5); Bilirubin Total 0.5 mg/dL (0.0-1.0); Total Protein 6.9 g/dL (6.5-8.0)
--- NOTE | 2021-02-28 15:36 | PM.GICN ---
History of Present Illness Data of Consult Service Date: 02/28/21 Primary Care Provider: Sheng Tamayo MD HPI Reason for consult: GI Bleeding 40 YM status post total colectomy for HD seen at [facility] ED today with bleeding into ileostomy bag. HPI Narrative: 40 yo male with past medical history of PE on xarelto, Hirschsprung disease status post ileostomy, anxiety, PUD here with complaints of bleeding from ileostomy bag since yesterday morning.? Patient tells me that he woke yesterday morning with bright red blood feeling half of his bag.? He emptied it and did not have an additional episode yesterday.? However with waking he noticed to have half of his bag again filled with bright red blood.? He has had some clots.? He denies any abdominal pain, vomiting. History multiple admits for same. Occasionally takes aspirin and anti-inflammatory medication for aches and pains Pt reports waking up yesterday at 4 am and noticing BRB filling up 1/2 of the ileostomy bag. No bleeding for the rest of the day. Woke up this am and noted another episode of bleeding at 10 am and came to [facility] ER for evaluation Pt denies abdominal pain, nausea, vomiting, fever, chills or sweating. He denies feeling lightheaded or dizzy. Patient denies recent change in bowel habits or change in appetite. He admits to gaining weight due to decreased activity during the pandemic. ??IMAGING STUDIES: 05/[address] scan showed: ? Postop colectomy. Right lower quadrant ileostomy. Large parastomal hernia containing multiple loops of small bowel and fat. No evidence of obstruction, bowel wall thickening or wall enhancement seen. Multiple ventral small hernias containing fat and small supraumbilical hernia containing a knuckle of small bowel. Slightly enlarged spleen. Stable focal dilatation of the right distal ureter. Bladder not optimally distended. Question diffuse bladder wall thickening. 12/24/[address] scan showed: ? IMPRESSION: ? The dilated and undulated mid and distal ureter with slightly hypodense ? appearing area in the right distal ureter, which appears narrowed. ? Underlying lesion is not excluded. Similar findings were seen on previous exam. ? There is no left-sided hydronephrosis. ? Distended bladder with normal-appearing prostate gland. No bladder wall ? thickening seen. ? Several anterior abdominal wall hernias, the largest right midabdomen ? containing loops of small bowel and mesentery. ? Likely cholelithiasis with lucent stones. Hyperdense bile opacifies the ? entire gallbladder. ?ENDOSCOPIC STUDIES: 07/[address] López?showed a gastric ulcer with visible vessel which was treated with epinephrine and cautery. ?10/[address] Peres?showed gastritis and no ulcers. ?10/24 Colonoscopy via colostomy?till 27 cms was performed by Dr. Marcial showed bleeding from granulation tissue in the stoma which subsided after anticoagulation was reversed. PAST GI HISTORY BY REVIEW OF MEDICAL RECORDS: ? Pt was seen by Dr Marcial: ? He has a hx of Hirschsprung's disease and had a diverting loop transverse colostomy in 2007 for marked colon distension. He eventually had a subtotal colectomy with an end ileostomy later that year. ? He has been on Coumadin for over 6 years in view of PE's. He has had periodic stoma bleeding and was admitted last October for this. I had brought him to the OR to examine the stoma as the blood appeared to come from an area on the upper part of the stoma itself. there was note of what seemed to be a small blind pouch adjacent and above the actual lumen of the stoma itself. ? His Coumadin was held and this bleeding had stopped .He also has a large parastomal hernia. ? 03/2018 he underwent repair of large parastomal hernia with placement of a biological mesh by Dr. Marcial. ? He had recurrence parastomal hernia 6 months later. ? Pt is being referred to [facility] for surgical repair of his parastomal hernia Review of Systems Constitutional: Constitutional: Denies fever(s), Denies headache(s) and Denies weight loss Eyes: Eyes: Denies eye discharge and Denies irritation ENT: Reports Normal hearing present, Denies dysphagia, Denies dizziness and Denies headache(s) Cardiovascular: Cardiovascular: Denies chest pain, Denies leg edema and Denies dyspnea on exertion Respiratory: Respiratory: Denies cough, Denies dyspnea on exertion and Denies wheezing Gastrointestinal: Gastrointestinal: Denies abdominal pain, Reports hematochezia, Denies change in bowel habits, Denies dysphagia and Denies heartburn Genitourinary: Genitourinary: Denies dysuria Musculoskeletal: Musculoskeletal: Denies back pain and Denies arthralgias Integumentary/Breasts: Skin/Breast: Denies pruritus, Denies rash and Denies jaundice Neurologic: Reports Normal hearing present, Denies Abnormal speech present, Denies dizziness, Denies headache(s) and Denies seizure-like activity Psychiatric: Psychiatric: Denies anxiety, Denies depression and Denies panic attacks Endocrine: Endocrine: Denies cold intolerance, Denies flushing and Denies heat intolerance Hematologic/Lymphatic: Hematologic/Lymphatic: Denies easy bleeding and Denies easy bruising Allergic/Immunologic: Allergic/Immunologic: Denies wheezing PMFSH Past Medical History Medical History Hemorrhage from ileostomy Hepatic steatosis Hirschsprung's disease Hx of gastric ulcer Ileostomy in place Localized swelling of both lower legs On anticoagulant therapy Parastomal hernia Pulmonary embolism Family History Family History Father Leukemia Mother HTN (hypertension) Diabetes type 2, controlled Sister Lupus Surgical History Surgical History History of colonoscopy Hx of endoscopy Hx of esophagogastroduodenoscopy Status post repair of ventral hernia Social History Social History Household Members: Family Household Members Other:: Lives with his mother. His father just recently Housing: House Alcohol intake: current Alcohol intake frequency: does not drink Advance Directives: No Advance Directives Information Provided: No service: No Current occupational status: disabled Meds Allergies Allergy/AdvReac Type Severity Reaction Status Date / Time No Known Allergies Allergy Unknown UNKNOWN Verified 02/28/21 12:05 [NO KNOWN ALLERGIES] Active Medications: Current Medications Generic Name Dose Route Start Last Admin Trade Name Freq PRN Reason Stop Dose Admin Pharmacy Consult 1 each 02/28/21 12:26 Consult Rx Perform Med Rec MISCELLANE ONCE PRN Consult order Home Medications Medication Instructions Recorded Confirmed Last Taken Type methadone 10 mg/mL oral concentrate 70 mg PO DAILY 05/19/20 02/28/21 02/28/21 History hydroxyzine HCl 25 mg tablet 1 - 2 tab PO Q8H PRN 02/28/21 02/28/21 Unknown History omeprazole 40 mg capsule,delayed 40 mg PO DAILY@0630 02/28/21 02/28/21 02/27/21 History release sertraline 100 mg tablet 1 tab PO DAILY 02/28/21 02/28/21 02/27/21 History Physical Exam Vital Signs: Vital Signs: Last Vital Signs Temp 98.5 F 02/28/21 11:59 Pulse 93 02/28/21 11:59 Resp 16 02/28/21 11:59 BP 154/114 H 02/28/21 11:59 Pulse Ox 96 02/28/21 11:59 Body Mass Index 39.1 Const: General: healthy appearing and no acute distress Nutritional Appearance: obese Orientation/consciousness: patient oriented x3 Limitations: no limitations HENMT: Head: Yes normal to inspection Ears: hearing grossly normal bilaterally Mouth: Normal oral and palatal mucosa present Eyes: Sclerae: sclerae normal Pupils: Equal, round and reactive pupils present Neck: Neck: Yes normal visual inspection Chest: Chest palpation & inspection: normal inspection of the chest Resp: Effort & Inspection: normal respiratory effort Auscultation: clear to auscultation bilaterally Cardio: Palpation: normal PMI Rate: regular rate Rhythm: regular rhythm Heart sounds: S1 normal heart sound present, S2 normal heart sound present and no murmurs GI: Inspection: Yes scar (mid line scar of past surgeries), Yes visible herniation and Yes other (Ileostomy bag in RLQ containing some old blood without active bleeding) Palpation (GI): Soft to palpation, nontender and No hepatosplenomegaly present Auscultation: normal bowel sounds Rectal Exam - Male: Yes deferred Skin: General skin exam: no rashes or lesions noted Neuro: General: patient oriented x3, gait normal and moves all extremities Cranial nerves: Yes Equal, round and reactive pupils present and Yes Normal hearing present Speech: No Abnormal speech present Psych: Appearance: grossly normal Mental Status: mental status grossly normal Results Labs CBC & Chem 7: 02/28/21 12:29 02/28/21 12:29 Labs: Short CBC 02/28/21 Range/Units 12:29 WBC 4.6 L (4.8-10.8) X10*3/uL Hgb 12.2 L (14.0-18.0) g/dl Hct 37.7 L (42-52) % Plt Count 152 L (160-400) X10*3/uL BMP 02/28/21 12:29 Sodium 141 Potassium 4.0 Chloride 104 Carbon Dioxide 30 H BUN 12 Creatinine 0.82 Calcium 9.5 D Liver Function 02/28/21 Range/Units 12:29 Total Bilirubin 0.5 (0.0-1.0) mg/dL Direct Bilirubin 0.2 (0.0-0.5) mg/dL AST 30 (5-37) U/L ALT 42 H (0-40) U/L Alkaline Phosphatase 96 (39-117) U/L Albumin 4.2 (3.5-5.0) g/dL Assessment and Plan (1) Hirschsprung's disease: Status: Acute (2) Hx of gastric ulcer: Status: Acute (3) Hemorrhage from ileostomy: Status: Acute (4) On anticoagulant therapy: Status: Acute 40 YM on chronic anticoagulation for hx of PE with a hx of Hirschsprung's disease and had a diverting loop transverse colostomy in 2007 for marked colon distension. He eventually had a subtotal colectomy with an end ileostomy later that year. Pt is on chronic anticoagulation for over 7 years because of PE's. 07/[address] López showed a gastric ulcer with visible vessel which was treated with epinephrine and cautery. 10/[address] Peres showed gastritis and no ulcers. Pt presented to [facility] ED today 2 episodes of bleeding into his ileostomy bag. Pt was hospitalized in 05/28 with blood in the ileostoomy bag.? No source of bleeding was detected on EGD. Bleeding was felt to be from granulation tissue in the ileostomy stoma. Advise re-evaluation of ielostomy stoma by General surgery. Peristomal hernia? Patient is status post repair with biologic mesh placement and developed recurrent hernia 6 months later. Pt was referred to [facility] for repeat surgery and he delayed his appt due to COVID 19 pandemic. Procedures Date of Service Date of Service: 02/28/21
--- NOTE | 2021-02-28 16:14 | PM.IMHP ---
History of Present Illness Date of Service: 02/28/21 Chief Complaint: colostomy bleeding 40 year old man presenting with bleeding from his ileostomy since yesterday. He last took his xarelto yesterday morning. He reported that half of his ileostomy bag was filled with bright red blood. He denied pain, nausea and vomiting. He has had issues with bleeding in the past when he was on warfarin. He also has a hx of a hernia that was operated on with mesh insertion but the mesh did not hold the hernia. He was going to follow up in [place] for this but because of covid 19 he was unable to. [facility] [place] Medical History Hemorrhage from ileostomy Hepatic steatosis Hirschsprung's disease Hx of gastric ulcer Ileostomy in place Localized swelling of both lower legs On anticoagulant therapy Parastomal hernia Pulmonary embolism Family History Father Leukemia Mother HTN (hypertension) Diabetes type 2, controlled Sister Lupus Surgical History History of colonoscopy Hx of endoscopy Hx of esophagogastroduodenoscopy Status post repair of ventral hernia Social History Household Members: Family Household Members Other:: Lives with his mother. His father just recently Housing: House Alcohol intake: current Alcohol intake frequency: does not drink Advance Directives: No Advance Directives Information Provided: No service: No Current occupational status: disabled Meds Allergies Allergy/AdvReac Type Severity Reaction Status Date / Time No Known Allergies Allergy Unknown UNKNOWN Verified 02/28/21 12:05 [NO KNOWN ALLERGIES] Active Medications: Current Medications Generic Name Dose Route Start Last Admin Trade Name Freq PRN Reason Stop Dose Admin Pharmacy Consult 1 each 02/28/21 12:26 Consult Rx Perform Med Rec MISCELLANE ONCE PRN Consult order Home Medications Medication Instructions Recorded Confirmed Last Taken Type methadone 10 mg/mL oral concentrate 70 mg PO DAILY 05/19/20 02/28/21 02/28/21 History hydroxyzine HCl 25 mg tablet 1 - 2 tab PO Q8H PRN 02/28/21 02/28/21 Unknown History omeprazole 40 mg capsule,delayed 40 mg PO DAILY@0630 02/28/21 02/28/21 02/27/21 History release sertraline 100 mg tablet 1 tab PO DAILY 02/28/21 02/28/21 02/27/21 History Physical Exam Vital Signs and Narrative: Vital Signs: Last Vital Signs Temp 98.5 F 02/28/21 11:59 Pulse 93 02/28/21 11:59 Resp 16 02/28/21 11:59 BP 154/114 H 02/28/21 11:59 Pulse Ox 96 02/28/21 11:59 Body Mass Index 39.1 Results Labs CBC and Chem 7: 02/28/21 12:29 02/28/21 12:29 Labs: Laboratory Results - last 24 hr 02/28/21 02/28/21 02/28/21 12:29 12:29 12:29 MCV 83.4 MCH 27.0 MCHC 32.4 RDW 14.6 Plt Count 152 L MPV 11.5 Immature Gran % (Auto) 0.6 H Neut % (Auto) 58.5 Lymph % (Auto) 29.3 Sunflower % (Auto) 8.2 Eos % (Auto) 3.0 Baso % (Auto) 0.4 Lymph # (Auto) 1.4 Sunflower # (Auto) 0.4 Eos # (Auto) 0.1 Baso # (Auto) 0.0 Abs Immat Gran (auto) 0.03 Absolute Neuts (auto) 2.7 Absolute Nucleated RBC 0.000 Nucleated RBC % (auto) 0.0 PT 11.6 INR 1.0 Anion Gap 11 L Estim Creat Clear Calc 142.5 Estimated GFR > 60 Random Glucose 139 H Calcium 9.5 D Total Bilirubin Direct Bilirubin AST ALT Alkaline Phosphatase Total Protein Albumin Stool Occult Blood COVID-19 ([facility]) COVID-19 Clin Com Blood Type Antibody Screen 02/28/21 02/28/21 02/28/21 12:29 12:29 12:47 MCV MCH MCHC RDW Plt Count MPV Immature Gran % (Auto) Neut % (Auto) Lymph % (Auto) Sunflower % (Auto) Eos % (Auto) Baso % (Auto) Lymph # (Auto) Sunflower # (Auto) Eos # (Auto) Baso # (Auto) Abs Immat Gran (auto) Absolute Neuts (auto) Absolute Nucleated RBC Nucleated RBC % (auto) PT INR Anion Gap Estim Creat Clear Calc Estimated GFR Random Glucose Calcium Total Bilirubin 0.5 Direct Bilirubin 0.2 AST 30 ALT 42 H Alkaline Phosphatase 96 Total Protein 6.9 Albumin 4.2 Stool Occult Blood COVID-19 ([facility]IANA) Negative COVID-19 Clin Com See Note Blood Type A Positive Antibody Screen NEGATIVE 02/28/21 12:47 MCV MCH MCHC RDW Plt Count MPV Immature Gran % (Auto) Neut % (Auto) Lymph % (Auto) Sunflower % (Auto) Eos % (Auto) Baso % (Auto) Lymph # (Auto) Sunflower # (Auto) Eos # (Auto) Baso # (Auto) Abs Immat Gran (auto) Absolute Neuts (auto) Absolute Nucleated RBC Nucleated RBC % (auto) PT INR Anion Gap Estim Creat Clear Calc Estimated GFR Random Glucose Calcium Total Bilirubin Direct Bilirubin AST ALT Alkaline Phosphatase Total Protein Albumin Stool Occult Blood POSITIVE COVID-19 (MARIANA) COVID-19 Clin Com Blood Type Antibody Screen
[2021-02-28 16:17] VITALS: BP 155/90; PULSE 78; RESP 20; TEMP 36.8; O2SAT 96
--- NOTE | 2021-02-28 16:38 | PM.EVENT ---
Event Note Date of Service: 02/28/21 Event Note: Patient seen and examined independently and was present during linares portion of E/M service. Agree with midlevel's history, physical, assessment, and plan. 40M presented with blood in ostomy acute blood loss anemia hold A/C follow up gi/surgery
--- NOTE | 2021-02-28 16:47 | PC.NURSE ---
Pt seen by GI at bedside. Awaiting eval from hospitalist at this time. Pt is alert and oriented. VSS. In NAD at this time.
--- NOTE | 2021-02-28 16:50 | P.CONGS_ITS ---
History of Present Illness Consult details Consult date: 02/28/21 Requesting physician: Marleni Oakes Narrative: 40-year-old male patient presenting with bleeding per ileostomy. He has a history of Hirschsprung disease status post pull-through procedure which subsequently required an end ileostomy. The ileostomy is complicated by a large parastomal hernia and surrounding granulation tissue. He has had previous episodes of GI bleeding from the granulation tissue which has required cauterization in the past. The patient is currently on Xarelto for of pulmonary embolism. He noted bright red blood in the ostomy bag which quickly filled the bag yesterday. The bleeding initially stopped but then later restarted any subsequently presented to the emergency department for further evaluation. He currently notes that the bleeding has stopped once again. He denies any new abdominal symptoms including pain, nausea, vomiting, or changes in his appetite. Review of Systems Review of Systems: Yes all other systems are reviewed and are negative Cardiovascular: Cardiovascular: Denies Abdominal Distension, Denies chest pain , Denies Epigastric Pain, Denies rapid heart rate and Denies dyspnea Respiratory: Respiratory: Denies cough and Denies dyspnea Gastrointestinal: Gastrointestinal: Reports as per HPI and Reports hematochezia PMFSH Past Medical History Medical History Hemorrhage from ileostomy Hepatic steatosis Hirschsprung's disease Hx of gastric ulcer Ileostomy in place Localized swelling of both lower legs On anticoagulant therapy Parastomal hernia Pulmonary embolism Family History Family History Father Leukemia Mother HTN (hypertension) Diabetes type 2, controlled Sister Lupus Surgical History Surgical History History of colonoscopy Hx of endoscopy Hx of esophagogastroduodenoscopy Status post repair of ventral hernia Social History Social History Household Members: Family Household Members Other:: Lives with his mother. His father just recently Housing: House Alcohol intake: current Alcohol intake frequency: does not drink Advance Directives: No Advance Directives Information Provided: No service: No Current occupational status: disabled Meds Allergies Allergy/AdvReac Type Severity Reaction Status Date / Time No Known Allergies Allergy Unknown UNKNOWN Verified 02/28/21 12:05 [NO KNOWN ALLERGIES] Active Medications: Current Medications Generic Name Dose Route Start Last Admin Trade Name Kristel PRN Reason Stop Dose Admin Pharmacy Consult 1 each 02/28/21 12:26 Consult Rx Perform Med Rec MISCELLANE ONCE PRN Consult order Home Medications Medication Instructions Recorded Confirmed Last Taken Type methadone 10 mg/mL oral concentrate 70 mg PO DAILY 05/19/20 02/28/21 02/28/21 History hydroxyzine HCl 25 mg tablet 1 - 2 tab PO Q8H PRN 02/28/21 02/28/21 Unknown History omeprazole 40 mg capsule,delayed 40 mg PO DAILY@0630 02/28/21 02/28/21 02/27/21 History release sertraline 100 mg tablet 1 tab PO DAILY 02/28/21 02/28/21 02/27/21 History Physical Exam Vital Signs: Vital Signs: Last Vital Signs Temp 98.3 F 02/28/21 16:17 Pulse 78 02/28/21 16:17 Resp 20 02/28/21 16:17 BP 155/90 H 02/28/21 16:17 Pulse Ox 96 02/28/21 16:17 Body Mass Index 39.1 Const: General: no acute distress Nutritional Appearance: obese Orientation/consciousness: patient oriented x3 Limitations: no limitations HENMT: Head: Yes normocephalic and Yes atraumatic Ears: hearing grossly normal bilaterally Neck: Neck: Yes trachea midline and Yes no JVD Resp: Effort & Inspection: normal respiratory effort, no audible wheezes and no cough GI: Other: Ostomy with large area of granulation tissue in the lower portion, no active bleeding noted at this time. Large parastomal hernia noted below the ostomy. Loose stool within the ostomy bag, appropriate for ileostomy. Pa lpation (GI): Soft to palpation, nontender, no guarding, not rigid and Hernia present (Large parastomal hernia) Abdomen image: 1. Peristomal hernia and ostomy Skin: General skin exam: no rashes or lesions noted Neuro: General: patient oriented x3 Extrem: General: Yes no clubbing, cyanosis or edema Results Labs Result diagrams: 02/28/21 12:29 02/28/21 12:29 Labs: Abnormal lab results 02/28/21 02/28/21 02/28/21 Range/Units 12:29 12:29 12:29 WBC 4.6 L (4.8-10.8) X10*3/uL RBC 4.52 L (4.60-5.80) X10*6/uL Hgb 12.2 L (14.0-18.0) g/dl Hct 37.7 L (42-52) % Plt Count 152 L (160-400) X10*3/uL Immature Gran % (Auto) 0.6 H (0.0-0.4) % Carbon Dioxide 30 H (22-29) mmol/L Anion Gap 11 L (12-20) Random Glucose 139 H (60-115) mg/dL ALT 42 H (0-40) U/L Short CBC 02/28/21 Range/Units 12:29 WBC 4.6 L (4.8-10.8) X10*3/uL Hgb 12.2 L (14.0-18.0) g/dl Hct 37.7 L (42-52) % Plt Count 152 L (160-400) X10*3/uL BMP 02/28/21 12:29 Sodium 141 Potassium 4.0 Chloride 104 Carbon Dioxide 30 H BUN 12 Creatinine 0.82 Calcium 9.5 D Liver Function 02/28/21 Range/Units 12:29 Total Bilirubin 0.5 (0.0-1.0) mg/dL Direct Bilirubin 0.2 (0.0-0.5) mg/dL AST 30 (5-37) U/L ALT 42 H (0-40) U/L Alkaline Phosphatase 96 (39-117) U/L Albumin 4.2 (3.5-5.0) g/dL All other labs normal. Assessment and Plan (1) Parastomal hernia: Status: Acute (2) On anticoagulant therapy: Status: Acute 40-year-old male patient with history of Hirschsprung, currently on Xarelto for pulmonary embolus, presenting to the emergency department with bleeding per ostomy. The bleeding has subsequently stopped but appeared to be related to granulation tissue surrounding the ostomy. No surgical intervention is required at this time. He may need referral to [place] for revision of the ileostomy and repair of the peristomal hernia. If he is discharged she should follow up with Dr. Marcial as an outpatient. Procedures Date of Service Date of Service: 02/28/21
== END 2021-02-28 17:13 | disposition home or self-care (01) ==
PROVIDERS: Nurse Practitioner Family; Emergency Provider Emergency Medicine; PCP Internal Medicine
DX: K94.11 Enterostomy hemorrhage (principal); K43.5 Parastomal hernia without obstruction or gangrene; Q43.1 Hirschsprung's disease; K92.2 Gastrointestinal hemorrhage, unspecified; Z87.19 Personal history of other diseases of the digestive system; Z79.01 Long term (current) use of anticoagulants; Z20.822 Contact with and (suspected) exposure to COVID-19; Z79.899 Other long term (current) drug therapy
CPT/HCPCS: 36415; 80048; 80076; 82272; 85025; 85610; 86850; 86900; 86901; 87635; 99284

== ENCOUNTER → 2021-03-03 12:54 | Outpatient (BNVA) | payer MEDICARE, MEDICAID, SELFPAY | PROVIDERS: PCP Internal Medicine; Referring Provider Internal Medicine; Visit Provider Surgery | DX: K94.11 Enterostomy hemorrhage (principal); K43.5 Parastomal hernia without obstruction or gangrene | CPT/HCPCS: 99212 ==

== ENCOUNTER 2021-03-31 09:46 | Outpatient (REF) | payer MEDICARE, MEDICAID, SELFPAY ==
--- NOTE | ~2021-03-31 | CT_ITS ---
EXAMINATION: CT ABDOMEN AND PELVIS WITHOUT CONTRAST CLINICAL INFORMATION: Parastomal hernia without obstruction or gangrene. COMPARISON: None TECHNIQUE: Multidetector volumetric imaging was performed from the superior aspect of the liver through the pubic symphysis. Sagittal and coronal reformatted images were obtained on the technologist's workstation. This CT examination was performed using dose optimization techniques as appropriate, variously including the following: *Automated exposure control *Adjustment of mA and/or kV according to patient size (this includes techniques or standardized protocols for targeted exams where dose is matched to indication/reason for exam; i.e. extremities or head) *Use of iterative reconstruction technique DLP: 854 mGy-cm FINDINGS: LUNG BASES: The visualized lung bases are unremarkable. The lung bases are well expanded and clear. Minimal atelectasis or scarring seen in the lingula. The heart size is normal. LIVER, GALLBLADDER, AND BILIARY TREE: The liver is enlarged in size, normal shape, and diffuse hypoattenuation. No focal hepatic lesion or biliary ductal dilatation is present. The gallbladder is unremarkable with no evidence of radiopaque gallstones, gallbladder wall thickening, or obvious pericholecystic inflammatory changes. PANCREAS: Unremarkable. SPLEEN: The spleen is borderline enlarged measuring 13.2 cm in length. Two small accessory splenules are seen at the hilum. ADRENAL GLANDS: Unremarkable. KIDNEYS AND URETERS: The kidneys are normal in size, shape, and attenuation. There are no radiopaque renal calculi. However, there is moderate right hydronephrosis with no obstructive etiology seen. The left ureter is mildly prominent but not dilated. BLADDER: There is diffuse bladder wall thickening with no radiopaque renal calculi seen. GASTROINTESTINAL TRACT: There is total colectomy with right lower quadrant ileostomy.. The small bowel loops are normal caliber. Appendix is not visualized. There is no obstruction. ABDOMINAL WALL: There is right lower quadrant ileostomy with parastomal hernia containing fat and small bowel loops. LYMPH NODES: Normal. VASCULAR: Unremarkable. PELVIC VISCERA: No free air or free fluid seen. OSSEOUS STRUCTURES: There is mild posterior spondylosis L1-L2 disc level. No fracture or lytic process seen. CT/CT abdomen pelvis wo con IMPRESSION: Total colectomy with right lower quadrant ileostomy. There is a large parastomal hernia containing loops of small bowel and mesenteric fat. No bowel obstruction seen. Hypoattenuation with hepatomegaly but no focal lesion seen. Mild borderline splenomegaly.
== END 2021-03-31 09:47 | disposition home or self-care (01) ==
LOC: HO.CT 09:46
PROVIDERS: Visit Provider Surgery
DX: K43.5 Parastomal hernia without obstruction or gangrene (principal)
CPT/HCPCS: 74176

== ENCOUNTER 2021-09-19 22:01 | Emergency (ER) | payer MEDICARE, MEDICAID, SELFPAY ==
--- NOTE | ~2021-09-19 | CT_ITS ---
EXAMINATION: CT ABDOMEN AND PELVIS WITHOUT CONTRAST CLINICAL INFORMATION: Nonfunctional ileostomy. Rule out small bowel obstruction. COMPARISON: 03/31/2021 TECHNIQUE: Multidetector volumetric imaging was performed from the superior aspect of the liver through the pubic symphysis. Sagittal and coronal reformatted images were obtained on the technologist's workstation. This CT examination was performed using dose optimization techniques as appropriate, variously including the following: *Automated exposure control *Adjustment of mA and/or kV according to patient size (this includes techniques or standardized protocols for targeted exams where dose is matched to indication/reason for exam; i.e. extremities or head) *Use of iterative reconstruction technique DLP: 935 mGy-cm FINDINGS: LUNG BASES: The visualized lung bases are unremarkable. LIVER, GALLBLADDER, AND BILIARY TREE: The liver is enlarged measuring 22 cm in CC dimension. There is normal shape with diffusely decreased attenuation. No focal liver lesion or biliary ductal dilatation. Stones in the gallbladder lumen. No wall thickening or pericholecystic fluid. PANCREAS: Unremarkable. SPLEEN: Unremarkable. ADRENAL GLANDS: Unremarkable. KIDNEYS AND URETERS: The kidneys are normal in size, shape, and attenuation. No hydronephrosis, hydroureter, or calculi seen. Mild symmetric perinephric stranding. BLADDER: Unremarkable. GASTROINTESTINAL TRACT: The stomach is unremarkable. Normal caliber small bowel. Status post colectomy. Right lower quadrant ileostomy. Prominent parastomal hernia containing small bowel. This is similar to prior. No bowel obstruction. No inflammatory changes. No free air or free fluid. ABDOMINAL WALL: Right lower quadrant ileostomy with large parastomal hernia, similar to prior. LYMPH NODES: Normal. VASCULAR: Unremarkable. PELVIC VISCERA: The prostate and seminal vesicles are unremarkable. OSSEOUS STRUCTURES: No acute or suspicious osseous abnormality. Mild degenerative change throughout the spine. Mild degenerative change of the hips. Unchanged bone island of L5. CT/CT abdomen pelvis wo con IMPRESSION: No bowel obstruction. Right lower quadrant ileostomy with large parastomal hernia, unchanged from prior. Hepatomegaly with hepatic steatosis. Fleischner guidelines were followed.
[2021-09-19 22:30] VITALS: BP 173/90; PULSE 115; RESP 17; TEMP 36.3; O2SAT 98; BMI 38.4
[2021-09-19 23:32] LABS: MANUAL DIFF FLAG NO
[2021-09-19 23:33] LABS: Basophils Percent Auto 0.3 % (0-2); Eosinophils Percent Auto 0.4 % (0-4); Hematocrit 40.7 % (42.0-52.0); Hemoglobin 13.2 g/dl (14.0-18.0); Imm Gran Abs Auto 0.02 X10*3/uL (0.00-0.03); Imm Gran Pct Auto 0.3 % (0.0-0.4); Lymphocytes Absolute Auto 1.1 X10*3/uL (1.2-4.9); Lymphocytes Percent Auto 15.3 % (20-40); Mean Corpuscular HGB Conc 32.4 g/dl (31.0-36.0); Mean Corpuscular Hemoglobin 26.6 pg (27.0-33.0); Mean Corpuscular Volume 82.1 fL (80.0-98.0); Monocytes Absolute Auto 0.4 X10*3/uL (0.1-1.2); Monocytes Percent Auto 6.3 % (2-11); Neutrophils Absolute Auto 5.4 x10*3/uL (2.0-8.3); Neutrophils Percent Auto 77.4 % (45-73); Platelet Count 176 X10*3/uL (160-400); Red Blood Count 4.96 X10*6/uL (4.60-5.80); Red Cell Distribution Width 14.2 % (11.0-16.0)
[2021-09-19 23:34] LABS: Appearance Urine CLEAR; Color Urine YELLOW; Glucose Urine UA NEG (NEG); Leukocyte Esterase Urine NEG (NEG); Nitrite Urine NEG (NEG); Specific Gravity - Urine >= 1.030 (1.005-1.025); UACC Culture Trigger NO; Urine Blood NEG (NEG); Urine Ketones NEG (NEG); Urine Protein 1+ MG/DL (NEG-TRACE)
[2021-09-19 23:46] LABS: Bacteria Urine 1+ /LPF; Squamous Epithelial Cell Urine 1+ /LPF
[2021-09-19 23:53] LABS: Alanine Aminotransferase 32 U/L (0-40); Albumin Level 4.5 g/dL (3.5-5.0); Alkaline Phosphatase 120 U/L (39-117); Anion Gap 13 (12-20); Aspartate Amino Transferase 26 U/L (5-37); Bilirubin Total 0.4 mg/dL (0.0-1.0); Blood Urea Nitrogen 14 mg/dL (9-16); Calcium 9.7 mg/dL (8.4-10.2); Carbon Dioxide 26 mmol/L (22-29); Chloride 103 mmol/L (96-108); Creatinine Clr Calc Pharmacy 146.7; Estimated Glomerular Filt Rate > 60; Glucose Random 127 mg/dL (60-115); Potassium 4.1 mmol/L (3.3-5.1); Sodium 138 mmol/L (135-145); Total Protein 7.8 g/dL (6.5-8.0)
--- NOTE | 2021-09-20 01:17 | ED.ABDPAIN ---
HPI - Abdominal Pain General Chief Complaint: Abdominal Pain Stated Complaint: abd pain Time Seen by Provider: 09/20/21 01:15 Source: patient Mode of arrival: ambulatory Limitations: no limitations History of Present Illness HPI narrative: 40 years old male came in for non draining ileostomy. 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 Patient today all day did not notice any drainage in the ileostomy bag, but declined any abdominal pain or nausea or vomiting, however patient notice some fluid leakage from his anus(which he has no rectum) while patient waiting in the emergency room notice that his ileostomy bag is full of normal brown stool. No bleeding. Patient otherwise declined any shortness of breath or chest pain. No fever or chills. No abdominal distension. Related Data Home Medications Medication Instructions Recorded Confirmed methadone 10 mg/mL oral concentrate 70 mg PO DAILY 05/19/20 03/03/21 sertraline 100 mg tablet 1 tab PO DAILY 02/28/21 03/03/21 Previous Rx's Medication Instructions Recorded rivaroxaban 20 mg tablet (Xarelto) 20 mg PO DAILY #90 tab 02/06/21 hydroxyzine HCl 25 mg tablet 25 - 50 mg PO Q8H PRN #180 tab 05/31/21 omeprazole 40 mg capsule,delayed 40 mg PO DAILY@0630 30 Days #30 cap 06/20/21 release Allergies Allergy/AdvReac Type Severity Reaction Status Date / Time No Known Allergies Allergy Unknown UNKNOWN Verified 02/28/21 12:05 [NO KNOWN ALLERGIES] Review of Systems Review of Systems All other systems are reviewed and are negative Constitutional: Reports as per HPI and Reports no additional constitutional complaints Eyes: Reports as per HPI and Reports no additional eye complaints Reports system reviewed and no additional complaints, except as documented Cardiovascular: Reports as per HPI and Reports no additional cardiovascular complaints Respiratory: Reports as per HPI and Reports no additional respiratory complaints Gastrointestinal: Reports as per HPI and Reports no additional gastrointestinal complaints Genitourinary: Reports no additional female genitourinary complaints Musculoskeletal: Reports no additional musculoskeletal complaints Skin/Breast: Reports system reviewed and no additional complaints, except as docu Psychiatric: Reports no additional psychiatric complaints Endocrine: Reports no additional endocrine complaints Hematologic/Lymphatic: Reports no additional hematologic/lymphatic complaints Allergic/Immunologic: Reports no additional allergic/immunologic complaints Reports system reviewed and no additional complaints, except as documented and Reports Abnormal speech present [facility] Past Medical History Medical History Hemorrhage from ileostomy Hepatic steatosis Hirschsprung's disease Hx of gastric ulcer Ileostomy in place Localized swelling of both lower legs On anticoagulant therapy Parastomal hernia Pulmonary embolism Surgical History History of colonoscopy Hx of endoscopy Hx of esophagogastroduodenoscopy Status post repair of ventral hernia Family History Family History Father Leukemia Mother HTN (hypertension) Diabetes type 2, controlled Sister Lupus Social History Social History Household Members: Family Household Members Other:: Lives with his mother. His father just recently Housing: House Alcohol intake: current Alcohol intake frequency: does not drink Advance Directives: No service: No Current occupational status: disabled Physical Exam ED Vital Signs: Vital Signs - 24 hr 09/19/21 22:30 09/20/21 02:00 Temperature 97.3 F 98.7 F Pulse Rate 115 H 91 Respiratory Rate 17 16 Blood Pressure 173/90 H 163/83 H Pulse Oximetry 98 97 BMI result Body Mass Index 38.4 Vital signs have been reviewed as appeared to be correct. Blood pressure elevated. Heart rate elevated. Respiration rate normal. Temperature normal. Oxygen saturation normal. Appearance: Alert. Oriented X3. No acute distress. Head: Normal external exam. Normocephalic. Atraumatic. No Faulkner signs noted. No raccoon eyes noted Eyes: PERRLA. EOMI. Conjunctiva and sclera normal. Eyelids normal. ENT: TM's Normal. Pharynx normal. Uvula midline. Moist mucous membranes. No trismus noted. No drooling noted. No muffled voice noted. Neck: Normal inspection. Neck supple. FROM. No adenopathy. Thyroid Normal. No meningeal signs. No neck mass noted. CVS: Normal heart rate and rhythm. Heart sound normal. No murmurs noted. Pulses normal throughout. Respiratory: No respiratory distress. Painless inspiration. Breath sounds normal. No wheezes/rales/rhonchi noted. Chest nontender. No accessory muscle usage noted or decreased air movement noted. Abdomen: Soft and nontender. Bowel sounds normal in all 4 quadrants, ileostomy tube is functioning and full of brownish stool with no blood. No distention noted. No organomegaly noted. No visible injury noted. Back: No CVA tenderness. Full range of motion noted. Skin: Skin warm and dry. Normal skin color. Normal skin turgor. No rashes/lesions/lacerations noted. Extremities: No lower extremity edema. Extremities exhibit normal range of motion. Extremities nontender. Neuro: Oriented X 3. Cranial nerve exam: II-XII are grossly intact No motor deficit. No sensory deficit. Reflexes normal. Course Course Course Narrative: Assessment and plan. 40-year-old male history of colectomy and ileostomy, patient thought that the ileostomy was not functioning old day, now it is functioning and draining normal amount and color of stool while in the emergency department, abdominal exam show nondistended abdomen, CT of the abdomen and pelvis show no sign of small-bowel obstruction. Patient now is comfortable, tolerating p.o. intake, ileostomy tube still functioning, patient was instructed to call Dr. Marcial (his surgeon) to discuss possible incisional hernia repair the patient been having for a while now. MDM - Abdominal Pain Medical Records Attestation: I reviewed the patient's medical records. Lab Data Attestation: I reviewed the patient's lab results. Result diagrams: 09/19/21 23:28 09/19/21 23:28 Labs: Lab Results 09/19/21 09/19/21 09/19/21 Range/Units 23:28 23:28 23:28 WBC 7.0 (4.8-10.8) X10*3/uL RBC 4.96 (4.60-5.80) X10*6/uL Hgb 13.2 L (14.0-18.0) g/dl Hct 40.7 L (42.0-52.0) % MCV 82.1 (80.0-98.0) fL MCH 26.6 L (27.0-33.0) pg MCHC 32.4 (31.0-36.0) g/dl RDW 14.2 (11.0-16.0) % Plt Count 176 (160-400) X10*3/uL MPV 11.0 (9.4-12.4) fL Immature Gran % (Auto) 0.3 (0.0-0.4) % Neut % (Auto) 77.4 H (45-73) % Lymph % (Auto) 15.3 L (20-40) % Tyrrell % (Auto) 6.3 (2-11) % Eos % (Auto) 0.4 (0-4) % Baso % (Auto) 0.3 (0-2) % Lymph # (Auto) 1.1 L (1.2-4.9) X10*3/uL Tyrrell # (Auto) 0.4 (0.1-1.2) X10*3/uL Eos # (Auto) 0.0 (0.0-0.4) X10*3/uL Baso # (Auto) 0.0 (0.0-0.2) X10*3/uL Abs Immat Gran (auto) 0.02 (0.00-0.03) X10*3/uL Absolute Neuts (auto) 5.4 (2.0-8.3) x10*3/uL Absolute Nucleated RBC 0.000 (0.0-0.012) X10*3/uL Nucleated RBC % (auto) 0.0 (0.0-0.2) /100WBC Sodium 138 (135-145) mmol/L Potassium 4.1 (3.3-5.1) mmol/L Chloride 103 (96-108) mmol/L Carbon Dioxide 26 (22-29) mmol/L Anion Gap 13 (12-20) BUN 14 (9-16) mg/dL Creatinine 0.84 (0.5-1.4) mg/dL Estim Creat Clear Calc 146.7 Estimated GFR > 60 Random Glucose 127 H (60-115) mg/dL Calcium 9.7 (8.4-10.2) mg/dL Total Bilirubin 0.4 (0.0-1.0) mg/dL AST 26 (5-37) U/L ALT 32 (0-40) U/L Alkaline Phosphatase 120 H D (39-117) U/L Total Protein 7.8 (6.5-8.0) g/dL Albumin 4.5 (3.5-5.0) g/dL Urine Color YELLOW Urine Appearance CLEAR Urine pH 6.0 (5.0-8.0) Ur Specific [place] >= 1.030 H (1.005-1.025) Urine Protein 1+ H (NEG-TRACE) MG/DL Urine Glucose (UA) NEG (NEG) MG/DL Urine Ketones NEG (NEG) MG/DL Urine Blood NEG (NEG) Urine Nitrite NEG (NEG) Ur Leukocyte Esterase NEG (NEG) Urine RBC 1-4 (0) /HPF Urine WBC 1-4 (0-4) /HPF Ur Squamous Epith Cells 1+ /LPF Urine Bacteria 1+ /LPF Imaging Data CT scan - abdomen: Attestation: I personally reviewed and interpreted this imaging study as follows: Radiologist's impression: No bowel obstruction. Right lower quadrant ileostomy with large parastomal hernia, unchanged from prior. ? Hepatomegaly with hepatic steatosis.? ? Discharge Plan Discharge Clinical Impression: Hirschsprung's disease, Ileostomy in place Patient Disposition: Home, Self-Care Instructions: Ileostomy Care (ED) Prescriptions: No Action hydroxyzine HCl 25 mg tablet 25 - 50 mg PO Q8H PRN (Reason: for anxiety) Qty: 180 0RF omeprazole 40 mg capsule,delayed release(DR/EC) 40 mg PO DAILY@0630 30 Days Qty: 30 2RF sertraline 100 mg tablet 1 tab PO DAILY 0RF methadone 10 mg/mL Concentrate 70 mg PO DAILY 0RF Rx Instructions: [facility] PHONE #'s - [phone] OR [phone] Xarelto 20 mg tablet 20 mg PO DAILY Qty: 90 4RF Referrals: Sheng Tamayo MD [Primary Care Provider] - 2 days Stuart Marcial MD [Physician] - 2 days
[2021-09-20 02:00] VITALS: BP 163/83; PULSE 91; RESP 16; TEMP 37.1; O2SAT 97
--- NOTE | 2021-09-20 03:28 | PC.NURSE ---
pt ileostomy pink and viable. liquid brown stool present. vitals stable. skin pink warm and dry. no s/s of distress.
== END 2021-09-20 03:32 | disposition home or self-care (01) ==
PROVIDERS: Emergency Provider Emergency Medicine; PCP Internal Medicine
DX: Q43.1 Hirschsprung's disease (principal); Z93.2 Ileostomy status; K43.5 Parastomal hernia without obstruction or gangrene; Z86.711 Personal history of pulmonary embolism; Z79.01 Long term (current) use of anticoagulants
CPT/HCPCS: 36415; 74176; 80053; 81001; 85025; 99284

== ENCOUNTER → 2021-10-03 13:12 | Outpatient (BNVA) | payer MEDICARE, MEDICAID, SELFPAY | PROVIDERS: PCP Internal Medicine; Referring Provider Internal Medicine; Visit Provider Surgery | DX: K43.5 Parastomal hernia without obstruction or gangrene (principal); Z93.2 Ileostomy status | CPT/HCPCS: 99212 ==

== ENCOUNTER → 2022-04-06 13:20 | Outpatient (BNVA) | payer MEDICARE, MEDICAID, SELFPAY | PROVIDERS: PCP Internal Medicine; Visit Provider Surgery Vascular Surgery | DX: I83.12 Varicose veins of left lower extremity with inflammation (principal) | CPT/HCPCS: 99202 ==

== ENCOUNTER 2022-08-30 12:34 | Outpatient (REF) | payer MEDICARE, MEDICAID, SELFPAY ==
--- NOTE | ~2022-08-30 | US_ITS ---
EXAMINATION: US LOWER EXTREMITY VENOUS (REFLUX EXAM), BILATERAL CLINICAL INDICATION: Chronic venous insufficiency with lower extremity varicose veins and pain COMPARISON: None. TECHNIQUE: Color flow triplex imaging and compression Doppler was performed to evaluate both the deep and the superficial systems bilaterally. To evaluate the superficial system, the examination was performed in the upright position. Color-flow Doppler ultrasound and compression ultrasound were utilized. In addition, maneuvers were utilized to demonstrate reflux. FINDINGS: 1. DEEP VENOUS ULTRASOUND OF THE RIGHT LOWER EXTREMITY: Common Femoral Vein: Compressible, normal respiratory variation and augmented flow. Femoral Vein: Compressible, normal color flow and augmentation. Popliteal Vein: Compressible, normal augmentation. Deep Reflux: There is no evidence of reflux in the deep system in either the common femoral vein or the popliteal vein. There is no evidence of a Horner's cyst. 2. SUPERFICIAL ULTRASOUND WITH DOPPLER OF RIGHT LOWER EXTREMITY: GREAT SAPHENOUS VEIN: Saphenofemoral Junction: 0.7 cm; Reflux: 0 ms Proximal Thigh: 0.4 cm; Reflux: 0 ms Mid Thigh: 0.5 cm; Reflux: 2412 ms Above Knee: 0.3 cm; Reflux: 0 ms At Knee: 0.4 cm; Reflux: 0 ms Below Knee: 0.5 cm; Reflux: 2516 ms Mid Calf: 0.4 cm; Reflux: 1868 ms Ankle: 0.4 cm; Reflux: 0 ms DUPLICATED MEDIAL GREAT SAPHENOUS VEIN: Diameter: None Imaged Reflux: NA DUPLICATED LATERAL GREAT SAPHENOUS VEIN: Diameter: 0.4 cm Reflux: Greater than 2560 ms throughout the thigh SMALL SAPHENOUS VEIN: Proximal: 0.4 cm; Reflux: 0 ms Distal: 0.2 cm; Reflux: 0 ms VEIN OF GIACOMINI: 0.4 cm without significant reflux PERFORATORS: Location: Distal calf Size: 0.5 cm Reflux: None VARICOSITIES: Location: Proximal thigh, mid thigh, distal thigh, knee and mid calf predominantly arising from of the duplicated lateral great saphenous vein and scattered areas of the great saphenous vein Size: Ranging from 0.3 cm to 0.6 cm Reflux: Ranging from 2360 ms to 2652 ms 3. DEEP VENOUS ULTRASOUND OF THE LEFT LOWER EXTREMITY: Common Femoral Vein: Compressible, normal respiratory variation and augmented flow. Femoral Vein: Compressible, normal color flow and augmentation. Popliteal Vein: Compressible, normal augmentation. Deep Reflux: There is severe deep venous reflux in the mid to superficial femoral vein and popliteal vein. There is no evidence of a Horner's cyst. 4. SUPERFICIAL ULTRASOUND WITH DOPPLER OF LEFT LOWER EXTREMITY: GREAT SAPHENOUS VEIN: Saphenofemoral Junction: 0.9 cm; Reflux: 0 ms Proximal Thigh: 0.4 cm; Reflux: 0 ms Mid Thigh: 0.3 cm; Reflux: 0 ms Above Knee: 0.3 cm; Reflux: 0 ms At Knee: 0.4 cm; Reflux: 0 ms Below Knee: 0.4 cm; Reflux: 936 ms Mid Calf: 0.4 cm; Reflux: 0 ms Ankle: 0.5 cm; Reflux: 0 ms DUPLICATED MEDIAL GREAT SAPHENOUS VEIN: Diameter: None Imaged Reflux: NA DUPLICATED LATERAL GREAT SAPHENOUS VEIN: Diameter: 0.8 cm Reflux: 1768 ms SMALL SAPHENOUS VEIN: Proximal: 0.3 cm; Reflux: 0 ms Distal: 0.3 cm; Reflux: 0 ms VEIN OF GIACOMINI: None Imaged. 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 There are segmental areas of reflux in the main right great saphenous vein as described above. Multiple branching varicosities throughout the thigh and calf as described above Left: Moderate to severe deep venous reflux in the superficial femoral vein and popliteal vein. Segmental areas of reflux is seen within the great saphenous vein in the proximal calf and lateral accessory saphenous vein. Dilated varicose veins throughout the calf as described above
== END 2022-08-30 12:35 | disposition home or self-care (01) ==
LOC: HO.US 12:34
PROVIDERS: Visit Provider Surgery Vascular Surgery
DX: I83.893 Varicose veins of bilateral lower extremities with other complications (principal)
CPT/HCPCS: 93970

== ENCOUNTER 2022-10-12 08:14 | Emergency (ER) | payer MEDICARE, MEDICAID, SELFPAY ==
--- NOTE | ~2022-10-12 | CT_ITS ---
EXAMINATION: CT ABDOMEN AND PELVIS WITHOUT AND WITH IV CONTRAST (GI BLEED STUDY) CLINICAL INFORMATION: Gastrointestinal bleeding. COMPARISON: CT exam from 09/20/2021. TECHNIQUE: Noncontrast volumetric helical CT acquisition of the abdomen and pelvis performed, followed by repeat imaging in arterial and venous phases after intravenous administration of 80 mL Omnipaque 350. Axial images are presented at 0.6 mm and 5 mm slice thickness. Coronal and sagittal reformatted images were generated at the technologist workstation. This CT examination was performed using dose optimization techniques as appropriate, variously including the following: *Automated exposure control *Adjustment of mA and/or kV according to patient size (this includes techniques or standardized protocols for targeted exams where dose is matched to indication/reason for exam; i.e. extremities or head) *Use of iterative reconstruction technique DLP: 2256 mGy-cm. FINDINGS: LUNG BASES: Unremarkable. LIVER, GALLBLADDER, AND BILIARY TREE: Again noted is diffuse hepatic steatosis and chronic atrophy of left hepatic lobe and mild hypertrophy of right hepatic lobe. No focal liver lesion. Gallbladder is physiologically distended and there is cholelithiasis. No gallbladder wall thickening. No dilated bile ducts. PANCREAS: No acute findings within the atrophied pancreas. No evidence of pancreatic mass, edema or ductal dilatation. SPLEEN: Mild splenomegaly. Spleen measures up to 15 cm maximum dimension. ADRENAL GLANDS: Normal. KIDNEYS AND URETERS: The kidneys have normal size, shape, and attenuation. No hydroureteronephrosis, urolithiasis or perinephric edema. BLADDER: The bladder is underdistended. There is chronic mild diffuse thickening of the bladder wall without mass, diverticulum or stone. The [id number] right ureter is chronically dilated. The dilated ureter has a cystic appearance on the axial images. The segment of ureter just proximal to the ureterovesical junction is normal in caliber. This suggests likelihood of a chronic stricture of the distal ureter. This observation is not appreciably changed compared to 03/31/2021 or 09/20/2021. BOWEL AND PERITONEUM: Stomach is unremarkable. No dilated bowel loops in this patient who is status post colectomy with Espinosa's pouch in the pelvis. No evidence of mucosal hyperenhancement or edematous thickening of small bowel gutierrez. There is no evidence of contrast extravasation into the lumen of the gastrointestinal tract. The wall of the rectal pouch appears to be chronically, mildly thickened and without focal mass. No perirectal or perianal fluid collection. ABDOMINAL WALL: Obese body habitus. Chronic large parastomal hernia around region of ileostomy contains fat and unobstructed small bowel. LYMPH NODES: No pathologic sized lymph nodes in the abdomen or pelvis. No inguinal lymphadenopathy. VASCULATURE: Abdominal aorta is normal in size and its branches are widely patent. Inferior vena cava is normal. No retroperitoneal hematoma. PELVIC VISCERA: Prostate gland is unremarkable. MUSCULOSKELETAL: The discovertebral degenerative change and focal posterior ligament ossification at L1-L2 chronically causes central canal stenosis at this level. Multilevel facet arthropathy of the lumbar spine. The mild disc bulge and facet arthropathy at L3-L4 appear to be chronically causes mild central canal stenosis. Bone island of L5 vertebra. No suspicious bone lesions. CT/CT gi bleed abd pel wo/w IVcon IMPRESSION: * No CT imaging evidence of an active gastrointestinal bleed. Also, no evidence of intraperitoneal or retroperitoneal hemorrhage. * Status post colectomy and ileostomy with large parastomal hernia containing fat and unobstructed small bowel. * Cholelithiasis without cholecystitis. * Urinary bladder wall is chronically, diffusely thickened. No evidence of focal bladder mass or stones. The right ureter is chronically dilated but there is no right-sided hydronephrosis. * Chronic mild thickening of the wall of the Espinosa's pouch. No new imaging abnormality compared to 09/20/2021. If the patient has any rectal pain or rectal bleeding, then possibility of mild proctitis of the rectal pouch would be considered. * Diffuse hepatic steatosis and chronic mild splenomegaly.
--- NOTE | ~2022-10-12 | XR_ITS ---
EXAMINATION: XR CHEST CLINICAL INFORMATION: Chest pain. COMPARISON: 08/18/2020 chest radiographs. TECHNIQUE: Frontal view of the chest was obtained. FINDINGS: Minimal linear markings are seen in the lingula. The lungs otherwise clear. There are no pleural effusions. The heart and mediastinal structures are unremarkable. XR/XR chest 1V IMPRESSION: Minimal linear atelectasis versus scarring in the lingula. No acute cardiopulmonary process.
[2022-10-12 08:16] VITALS: BP 182/99; PULSE 99; RESP 18; TEMP 36.8; O2SAT 99; BMI 38.0
--- NOTE | 2022-10-12 08:32 | ECG_ITS ---
Test Reason : cp Blood Pressure : / mmHG Vent. Rate : 080 BPM Atrial Rate : 080 BPM P-R Int : 154 ms QRS Dur : 104 ms QT Int : 390 ms P-R-T Axes : 040 059 021 degrees QTc Int : 449 ms Normal sinus rhythm Incomplete right bundle branch block Borderline ECG When compared with ECG of 18-AUG-2020 10:10, No significant change was found Referred By: Mat Shelton Electronically Signed By:Lionel Dan
--- NOTE | 2022-10-12 09:03 | ED_ITS ---
HPI - General Adult General Chief complaint: GI Bleed Stated complaint: gi issues Time Seen by Provider: 10/12/22 08:32 Source: patient, RN notes reviewed and old records reviewed Mode of arrival: ambulatory Limitations: no limitations History of Present Illness HPI narrative: 40-year-old male with past medical history of Hirschsprung disease, hepatic steatosis, history of gastric ulcer, ileostomy, anticoagulation therapy, parastomal hernia, ventral hernia, PE, on anticoagulation therapy is here today for blood in his ileostomy and no fecal drainage. Patient was diagnosed with Hirschsprung disease at age 27 and under well colectomy with ileostomy. Patient noticed that there was no stool but blood in his ileostomy bag last night. Patient came this morning for evaluation. Patient denies any abdominal pain, nausea, vomiting, syncope, presyncope. Patient states that he does not have stool in his ileostomy bag, however he reports that occasionally he this will happen. Patient is not taking any medications to move his bowels. Patient states that he has large parastomal hernia that was unable to be repaired by his general surgeon. Patient was sent to [facility] to get 2nd opinion. Patient is awaiting appointment to see if they can do surgery to repair his hernia Onset (ago): hour(s) Related Data Home Medications Medication Instructions Recorded Confirmed methadone 10 mg/mL oral concentrate 75 mg PO DAILY 09/23/21 02/16/22 betamethasone, augmented 0.05 % topical 02/16/22 02/16/22 topical ointment Previous Rx's Medication Instructions Recorded rivaroxaban 20 mg tablet (Xarelto) 20 mg PO DAILY #90 tabs 02/20/22 buspirone 10 mg tablet 10 mg PO BID 30 days #60 tabs 09/04/22 hydroxyzine HCl 25 mg tablet 25 - 50 mg PO Q8H PRN for anxiety 09/04/22 #90 tabs omeprazole 40 mg capsule,delayed 40 mg PO DAILY #90 caps 09/04/22 release sertraline 50 mg tablet 50 mg PO DAILY #30 tabs 09/04/22 docusate sodium 100 mg capsule 100 mg PO DAILY #30 caps 10/12/22 Allergies Allergy/AdvReac Type Severity Reaction Status Date / Time No Known Allergies Allergy Unknown UNKNOWN Verified 09/04/22 15:04 [NO KNOWN ALLERGIES] Review of Systems Review of Systems: Review of Systems Review of Systems: ?? Yes all other syst ems are reviewed a nd are negative Constitutional:??L Constitutional: Re ports no additiona l constitutional c omplaints, Denies body ache(s), Donell es chills, Denies fever(s), Denies h eadache(s) and Den ies weakness Eyes:?? Eyes: Reports no a dditional eye comp laints and Denies change in vision ENT:??L Reports system rev iewed and no addit ional complaints, except as document ed, Denies dizzine ss, Denies headach e(s), Denies nasal congestion, Denie s nasal discharge and Denies neck pa in Cardiovascular:??L Cardiovascular: Re ports no additiona l cardiovascular c omplaints, Denies chest pain, Denies leg edema and Den ies dyspnea Respiratory:?? Respiratory: Repor ts no additional r espiratory complai nts, Denies cough and Denies dyspnea Gastrointestinal:? ? Gastrointestinal: Reports no additio nal gastrointestin al complaints, Den ies abdominal pain , Reports hematoch ezia, Denies diarr hea, Denies nausea and Denies vomiti ng Genitourinary:?? Genitourinary: Den ies urinary incont inence Musculoskeletal:?? Musculoskeletal: R eports no addition al musculoskeletal complaints, Denie s back pain, Denie s arthralgias, Den ies joint swelling , Denies neck pain , Denies numbness and Denies tinglin g Integumentary/Fe [employer] sts:?? Skin/Breast: Repor ts system reviewed and no additional complaints, excep t as docu and Donell es rash Neurologic:?? Reports system rev iewed and no addit ional complaints, except as document ed, Denies Abnorma l speech present, Denies dizziness, Denies headache(s) , Denies numbness, Denies tingling a nd Denies weakness PMFSH Past Medical History Medical History (Updated 10/12/22 @ 13:13 by Katty Chicas, ENERGY AND SUSTAINABILITY MANAGER-) Hemorrhage from ileostomy Hepatic steatosis Hirschsprung's disease History of substance abuse Hx of gastric ulcer Ileostomy in place Localized swelling of both lower legs Mixed hyperlipidemia Obesity (BMI 30-39.9) On anticoagulant therapy Parastomal hernia Pulmonary embolism Surgical History History of colonoscopy Hx of endoscopy Hx of esophagogastroduodenoscopy Status post repair of ventral hernia Family History Family History Father Leukemia Mother HTN (hypertension) Diabetes type 2, controlled Sister Lupus Other Mental health disorder Social History Social History Household Members: Family Household Members Other:: Lives with his mother. His father just recently Housing: House Alcohol intake: current Alcohol intake frequency: holidays/special occasions only Patient Tobacco Use Status: Former Tobacco user e-Cigarette/Vaping Use: Never Used Second Hand Smoke Exposure: No service: No Current occupational status: disabled Cognitive needs: No Hearing needs: No Vision needs: No Physical Exam ED Vital Signs: Vital Signs - 24 hr 10/12/22 08:16 10/12/22 11:20 Temperature 98.3 F 98.4 F Pulse Rate 99 89 Respiratory Rate 18 16 Blood Pressure 182/99 H 149/105 H Pulse Oximetry 99 96 Oxygen Delivery Method Room Air Room Air BMI result Body Mass Index 38.0 Const Other: Const:?? General: cooperative, healthy appearing, comfortable and no acute dis tress? Orientation/consciousness: patient oriented x3? Limitations: no limitations HENMT:?? Head: Yes normal to inspection? Ears: hearing grossly normal bilaterally? General nose exam: Normal external nose present? Face and sinus: Yes normal facial exam? Mouth: Normal oral and palatal mucosa present? Throat: Yes posterior oropharynx normal Eyes:?? General: appearance normal, both eyes and all related structures? Pupils: Equal, round and reactive pupils present Neck:?? Neck: Yes normal visual inspection A Chest:?? Chest palpation & inspection: normal inspection of the chest A Resp:?? Effort & Inspection: normal respiratory effort? Auscultation: clear to auscultation bilaterally Cardio:?? Rate: regular rate? Rhythm: regular rhythm? Peripheral pulses: Peripheral pulses 2+ throughout GI:?? Other: Yes visible herniation (significant hernia involving area around the ileostomy)?? Ileostomy noted to the right lower quadrant.? Bright red blood noted in the ileostomy bag.? No clots.? Occult positive? Inspection: Yes normal to inspection? Palpation (GI): Soft to palpation and nontender? Auscultation: normal bowel sounds Back/Spine/Pelvis:?? Thoracic/Lumbar Spine: thoracic and lumbar spine normal to inspection Skin:?? General skin exam: no rashes or lesions noted Neuro:?? General: patient oriented x3, no focal motor deficits and normal sensation to monofilament? Cranial nerves: Yes Equal, round and reactive pupils present? Cognition (Neuro): normal cognition? Speech: No Abnormal speech prese nt? Gait exam (Neuro): Normal gait present? Motor exam (neuro): 5/5 motor strength present throughout Extrem:?? General: Yes normal to inspection, Yes no pedal edema and Yes no calf tenderness Course Course Course Narrative: 40-year-old male with past medical history of Hirschsprung disease, hepatic steatosis, history of gastric ulcer, ileostomy, anticoagulation therapy, parastomal hernia, ventral hernia, PE, on anticoagulation therapy is here today for blood in his ileostomy and no fecal drainage. Patient was diagnosed with Hirschsprung disease at age 27 and under well colectomy with ileostomy. Patient noticed that there was no stool but blood in his ileostomy bag last night. Patient came this morning. Patient denies any abdominal pain, nausea, vomitin g, syncope, presyncope. Patient states that he does not have stool in his ileostomy bag, however he reports that occasionally he this will happen. Patient is not taking any medications to move his bowels. Patient states that he has large parastomal hernia that was unable to be repaired by his general surgeon. Patient was sent to [facility] to get 2nd opinion. Patient is awaiting appointment to see if they can do any surgery. Will do blood work, CBC, PT and INR, will check CT scan. Similar episode in September of 2021. Reevaluation(s) Reevaluation #1: Patient started moving his bowels, passing gas, bleeding subsided. Spoke to GI commercial solar sales consultant will do GI bleed protocols CT scan. Patient denies any abdominal pain or discomfort. Hemoglobin 12.4, hematocrit 38.1, normal MCV. No leukocytosis. Patient denies any nausea or vomiting. Awaiting to go to CT scan Reevaluation #2: CT scan negative for GI bleed. Patient is having normal bowel movements now. Bleeding subsided. Patient feels well, looks hemodynamically stable. Vital signs stable. Patient has no nausea or vomiting. Moving his bowels well now. Eating and keeping his food and liquids down. Patient will be sent home to follow-up with his PCP and with GI. Discussed with patient the importance of returning if he will continue to have bleed, nausea, vomiting, syncope, presyncope, dizziness Medications Administered Discontinued Medications Generic Name Dose Route Start Last Admin Trade Name Kristel PRN Reason Stop Dose Admin Iohexol 100 ml 10/12/22 11:19 10/12/22 11:20 Iohexol 350 Mg/Ml 100 Ml Infus..Btl IV 10/12/22 11:20 80 ml ONCE ONE Administration Medical Decision Making Medical Decision Making MDM Narrative: 40-year-old male with past medical history of Hirschsprung disease, hepatic steatosis, history of gastric ulcer, ileostomy, anticoagulation therapy, parastomal hernia, ventral hernia, PE, on anticoagulation therapy is here today for blood in his ileostomy and no fecal drainage. Patient was diagnosed with Hirschsprung disease at age 27 and under well colectomy with ileostomy. Patient noticed that there was no stool but blood in his ileostomy bag last night. Patient came this morning. Patient denies any abdominal pain, nausea, vomiting, syncope, presyncope. Patient states that he does not have stool in his ileostomy bag, however he reports that occasionally he this will happen. Patient is not taking any medications to move his bowels. Patient states that he has large parastomal hernia that was unable to be repaired by his general surgeon. Patient was sent to [facility] to get 2nd opinion. Patient is awaiting appointment to see if they can do any surgery. Will do blood work, CBC, PT and INR, will check CT scan. Similar episode in September of 2021. Call out to GI for consult. Will do CT scan GI bleed protocol. Patient seen General surgery at [facility] in March of 2022, upon reviewing his notes patient was encouraged to lose weight so they can do possible reversal of ileostomy. Patient is awaiting for follow-up appointment. At this time patient does not have any abdominal pain or discomfort, no change in color of the skin surrounding the site. Patient is passing gas however no bowel movement seen in the bag Yet. Patient denies any nausea or vomiting. Differential Diagnosis Differential Diagnoses: The differential diagnosis associated with the presentation includes GI Bleed, ischemic bowel, intussusception, increased or strangulated tissue associated hernia Consult Healthcare Provider Management of the patient was discussed with: Mobile Home Technician (Dr. Cheikh BEYER) Lab Data MDM Lab Attestation statement: I reviewed the patient's lab results. 10/12/22 09:07 10/12/22 09:07 Labs: Lab Results 10/12/22 10/12/22 10/12/22 Range/Units 09:02 09:07 09:07 WBC 5.4 (4.8-10.8) X10*3/uL RBC 4.49 L (4.60-5.80) X10*6/uL Hgb 12.4 L (14.0-18.0) g/dl Hct 38.1 L (42.0-52.0) % MCV 84.9 (80.0-98.0) fL MCH 27.6 (27.0-33.0) pg MCHC 32.5 (31.0-36.0) g/dl RDW 13.4 (11.0-16.0) % Plt Count 186 (160-400) X10*3/uL MPV 11.1 (9.4-12.4) fL Immature Gran % (Auto) 0.4 (0.0-0.4) % Neut % (Auto) 54.2 (45-73) % Lymph % (Auto) 33.4 (20-40) % [place] % (Auto) 8.7 (2-11) % Eos % (Auto) 2.6 (0-4) % Baso % (Auto) 0.7 (0-2) % Lymph # (Auto) 1.8 (1.2-4.9) X10*3/uL [place] # (Auto) 0.5 (0.1-1.2) X10*3/uL Eos # (Auto) 0.1 (0.0-0.4) X10*3/uL Baso # (Auto) 0.0 (0.0-0.2) X10*3/uL Abs Immat Gran (auto) 0.02 (0.00-0.03) X10*3/uL Absolute Neuts (auto) 2.9 (2.0-8.3) x10*3/uL Absolute Nucleated RBC 0.000 (0.0-0.012) X10*3/uL Nucleated RBC % (auto) 0.0 (0.0-0.2) /100WBC PT 14.2 H (10.0-13.1) SEC INR 1.2 H (0.9-1.1) Sodium (135-145) mmol/L Potassium (3.3-5.1) mmol/L Chloride (96-108) mmol/L Carbon Dioxide (22-29) mmol/L Anion Gap (12-20) BUN (9-16) mg/dL Creatinine (0.5-1.4) mg/dL Estim Creat Clear Calc Estimated GFR Random Glucose (60-115) mg/dL Calcium (8.4-10.2) mg/dL Total Bilirubin (0.0-1.0) mg/dL AST (5-37) U/L ALT (0-40) U/L Alkaline Phosphatase (39-117) U/L Troponin I High Sens (<3.5-35.0) ng/L Total Protein (6.5-8.0) g/dL Albumin (3.5-5.0) g/dL COVID-19 (MARIANA) Negative (Negative) COVID-19 Clin Com See Note 10/12/22 10/12/22 Range/Units 09:07 09:07 WBC (4.8-10.8) X10*3/uL RBC (4.60-5.80) X10*6/uL Hgb (14.0-18.0) g/dl Hct (42.0-52.0) % MCV (80.0-98.0) fL MCH (27.0-33.0) pg MCHC (31.0-36.0) g/dl RDW (11.0-16.0) % Plt Count (160-400) X10*3/uL MPV (9.4-12.4) fL Immature Gran % (Auto) (0.0-0.4) % Neut % (Auto) (45-73) % Lymph % (Auto) (20-40) % [place] % (Auto) (2-11) % Eos % (Auto) (0-4) % Baso % (Auto) (0-2) % Lymph # (Auto) (1.2-4.9) X10*3/uL [place] # (Auto) (0.1-1.2) X10*3/uL Eos # (Auto) (0.0-0.4) X10*3/uL Baso # (Auto) (0.0-0.2) X10*3/uL Abs Immat Gran (auto) (0.00-0.03) X10*3/uL Absolute Neuts (auto) (2.0-8.3) x10*3/uL Absolute Nucleated RBC (0.0-0.012) X10*3/uL Nucleated RBC % (auto) (0.0-0.2) /100WBC PT (10.0-13.1) SEC INR (0.9-1.1) Sodium 142 (135-145) mmol/L Potassium 4.1 (3.3-5.1) mmol/L Chloride 105 (96-108) mmol/L Carbon Dioxide 30 H (22-29) mmol/L Anion Gap 11 L (12-20) BUN 12 (9-16) mg/dL Creatinine 0.79 (0.5-1.4) mg/dL Estim Creat Clear Calc 148.8 Estimated GFR > 60 Random Glucose 116 H (60-115) mg/dL Calcium 9.0 D (8.4-10.2) mg/dL Total Bilirubin 0.4 (0.0-1.0) mg/dL AST 20 (5-37) U/L ALT 22 (0-40) U/L Alkaline Phosphatase 104 (39-117) U/L Troponin I High Sens < 2.7 (<3.5-35.0) ng/L Total Protein 6.8 (6.5-8.0) g/dL Albumin 4.1 (3.5-5.0) g/dL COVID-19 (MARIANA) (Negative) COVID-19 Clin Com Independent Interpretation I performed an independent interpretation of an: CT Scan (Abdominal pelvis) Radiology Impression Discussion of test interpretation with radiology: I have reviewed the radiologist's reading. Radiologist Impression: FINDINGS: LUNG BASES: Unremarkable. ? LIVER, GALLBLADDER, AND BILIARY TREE: Again noted is diffuse hepatic steatosis and chronic atrophy of left hepatic lobe and mild hypertrophy of right hepatic lobe. No focal liver lesion. Gallbladder is physiologically distended and there is cholelithiasis. No gallbladder wall thickening. No dilated bile ducts.? PANCREAS: No acute findings within the atrophied pancreas. No evidence of pancreatic mass, edema or ductal dilatation.? SPLEEN: Mild splenomegaly. Spleen measures up to 15 cm maximum dimension.? ADRENAL GLANDS: Normal.? KIDNEYS AND URETERS: The kidneys have normal size, shape, and attenuation. No hydroureteronephrosis, urolithiasis or perinephric edema. ? BLADDER: The bladder is underdistended. There is chronic mild diffuse thickening of the bladder wall without mass, diverticulum or stone. The [id number] right ureter is chronically dilated. The dilated ureter has a cystic appearance on the axial images. The segment of ureter just proximal to the ureterovesical junction is normal in caliber. This suggests likelihood of a chronic stricture of the distal ureter. This observation is not appreciably changed compared to 03/31/2021 or 09/20/2021. BOWEL AND PERITONEUM: Stomach is unremarkable. No dilated bowel loops in this patient who is status post colectomy with Espinosa's pouch in the pelvis. No evidence of mucosal hyperenhancement or edematous thickening of small bowel gutierrez. There is no evidence of contrast extravasation into the lumen of the gastrointestinal tract. The wall of the rectal pouch appears to be chronically, mildly thickened and without focal mass. No perirectal or perianal fluid collection.? ABDOMINAL WALL: Obese body habitus. Chronic large parastomal hernia around region of ileostomy contains fat and unobstructed small bowel.? LYMPH NODES: No pathologic sized lymph nodes in the abdomen or pelvis. No inguinal lymphadenopathy. VASCULATURE: Abdominal aorta is normal in size and its branches are widely patent. Inferior vena cava is normal. No retroperitoneal hematoma. PELVIC VISCERA: Prostate gland is unremarkable. MUSCULOSKELETAL: The discovertebral degenerative change and focal posterior ligament ossification at L1-L2 chronically causes central canal stenosis at this level. Multilevel facet arthropathy of the lumbar spine. The mild disc bulge and facet arthropathy at L3-L4 appear to be chronically causes mild central canal stenosis. Bone island of L5 vertebra. No suspicious bone lesions.? CT/CT gi bleed abd pel wo/w IVcon IMPRESSION: *? No CT imaging evidence of an active gastrointestinal bleed. Also, no evidence of intraperitoneal or retroperitoneal hemorrhage. *? Status post colectomy and ileostomy with large parastomal hernia containing fat and unobstructed small bowel. *? Cholelithiasis without cholecystitis. *? Urinary bladder wall is chronically, diffusely thickened. No evidence of focal bladder mass or stones. The right ureter is chronically dilated but there is no right-sided hydronephrosis. *? Chronic mild thickening of the wall of the Espinosa's pouch. No new imaging abnormality compared to 09/20/2021. If the patient has any rectal pain or rectal bleeding, then possibility of mild proctitis of the rectal pouch would be considered. *? Diffuse hepatic steatosis and chronic mild splenomegaly. Discharge Plan Discharge Clinical Impression: Hemorrhage from ileostomy, Parastomal hernia, On anticoagulant therapy Patient Disposition: Home, Self-Care Instructions: Gastrointestinal Bleeding (ED), Ileostomy Care (ED), Safe Use of Anticoagulants (ED) Additional Instructions: You were seen here today for bleeding from your ileostomy. You have mild anemia so please follow-up with your crew leader gluing. Your CT scan was negative for any acute findings. No blood loss from your small intestines. You will be given script for stool softener to help you move your bowels better. Please make sure you come to ED if you will have any abdominal pain, excessive bleeding, nausea, vomiting and no bowel or gas in your ileostomy bag. Please follow-up with your primary care provider. I a.m. referring you to see gastroenterology. Continue taking your omeprazole daily. Prescriptions: New docusate sodium 100 mg capsule 100 mg PO DAILY Qty: 30 0RF No Action Xarelto 20 mg tablet 20 mg PO DAILY Qty: 90 4RF methadone 10 mg/mL concentrate 75 mg PO DAILY Rx Instructions: [facility] PHONE #'s - [phone] OR [phone] buspirone 10 mg tablet 10 mg PO BID 30 Days Qty: 60 2RF sertraline 50 mg tablet 50 mg PO DAILY Qty: 30 1RF omeprazole 40 mg capsule,delayed release(DR/EC) 40 mg PO DAILY Qty: 90 1RF hydroxyzine HCl 25 mg tablet 25 - 50 mg PO Q8H PRN (Reason: for anxiety) Qty: 90 5RF betamethasone, augmented 0.05 % ointment topical Referrals: Sheng Tamayo MD [Primary Care Provider] - Karen Rogers MD [Physician] - Melissa Salamanca MD [Physician] - Interventions: ED Discharge Assessment Last Done: 10/12/22 13:15 Discharge Date/Time: 10/12/22 13:21
[2022-10-12 09:11] LABS: MANUAL DIFF FLAG NO
[2022-10-12 09:15] LABS: Basophils Percent Auto 0.7 % (0-2); Eosinophils Absolute Auto 0.1 X10*3/uL (0.0-0.4); Eosinophils Percent Auto 2.6 % (0-4); Hematocrit 38.1 % (42.0-52.0); Hemoglobin 12.4 g/dl (14.0-18.0); Imm Gran Abs Auto 0.02 X10*3/uL (0.00-0.03); Imm Gran Pct Auto 0.4 % (0.0-0.4); Lymphocytes Absolute Auto 1.8 X10*3/uL (1.2-4.9); Lymphocytes Percent Auto 33.4 % (20-40); Mean Corpuscular HGB Conc 32.5 g/dl (31.0-36.0); Mean Corpuscular Hemoglobin 27.6 pg (27.0-33.0); Mean Corpuscular Volume 84.9 fL (80.0-98.0); Mean Platelet Volume 11.1 fL (9.4-12.4); Monocytes Absolute Auto 0.5 X10*3/uL (0.1-1.2); Monocytes Percent Auto 8.7 % (2-11); Neutrophils Absolute Auto 2.9 x10*3/uL (2.0-8.3); Neutrophils Percent Auto 54.2 % (45-73); Platelet Count 186 X10*3/uL (160-400); Red Blood Count 4.49 X10*6/uL (4.60-5.80); Red Cell Distribution Width 13.4 % (11.0-16.0); White Blood Count 5.4 X10*3/uL (4.8-10.8)
[2022-10-12 09:18] LABS: INTERNATIONAL NORM RATIO 1.2 (0.9-1.1); Prothrombin Time 14.2 SEC (10.0-13.1)
[2022-10-12 09:29] LABS: Alanine Aminotransferase 22 U/L (0-40); Albumin Level 4.1 g/dL (3.5-5.0); Alkaline Phosphatase 104 U/L (39-117); Anion Gap 11 (12-20); Aspartate Amino Transferase 20 U/L (5-37); Bilirubin Total 0.4 mg/dL (0.0-1.0); Blood Urea Nitrogen 12 mg/dL (9-16); Carbon Dioxide 30 mmol/L (22-29); Chloride 105 mmol/L (96-108); Creatinine Clr Calc Pharmacy 148.8; Estimated Glomerular Filt Rate > 60; Glucose Random 116 mg/dL (60-115); Potassium 4.1 mmol/L (3.3-5.1); Sodium 142 mmol/L (135-145); Total Protein 6.8 g/dL (6.5-8.0)
[2022-10-12 09:30] LABS: COVID-19 Test Negative (Negative); IDNOW Serial# 55D5AD1C
--- NOTE | 2022-10-12 09:30 | PC.NURSE ---
Addendum entered by Jo-Ann Sawant 10/12/22 09:32: Pt with ostomy to right side with hernia noted at same site. Pt states this has been ongoing and he follows up with gen surgery about it. Original Note: Alert and oriented, resp even and unlabored. IV established, labs drawn and sent.
[2022-10-12 09:40] LABS: Troponin-I High Sensitivity < 2.7 ng/L (<3.5-35.0)
--- NOTE | 2022-10-12 11:10 | PC.NURSE ---
In ct scan at this time
[2022-10-12 11:20] VITALS: BP 149/105; PULSE 89; RESP 16; TEMP 36.9; O2SAT 96
[2022-10-12] MEDS: iohexoL 350 MG/ML 100 ML INFUS..BTL IV (11:20)
== END 2022-10-12 13:21 | disposition home or self-care (01) ==
PROVIDERS: Emergency Provider Emergency Medicine; PCP Internal Medicine
DX: K43.5 Parastomal hernia without obstruction or gangrene (principal); K92.2 Gastrointestinal hemorrhage, unspecified; Z79.01 Long term (current) use of anticoagulants; Z79.899 Other long term (current) drug therapy; Z20.822 Contact with and (suspected) exposure to COVID-19; Z20.828 Contact with and (suspected) exposure to other viral communicable diseases; Z87.891 Personal history of nicotine dependence
CPT/HCPCS: 71045; 74178; 80053; 84484; 85025; 85610; 87635; 93005; 99284; 99285; Q9967

== ENCOUNTER 2022-11-01 09:31 | Emergency (ER) | payer MEDICARE, MEDICAID, SELFPAY ==
--- NOTE | ~2022-11-01 | CT_ITS ---
EXAMINATION: CT ABDOMEN AND PELVIS WITH CONTRAST CLINICAL INFORMATION: Ostomy, hernia, evaluate for obstruction COMPARISON: 10/12/2022 TECHNIQUE: Multidetector volumetric images were obtained from the superior aspect of the liver through the pubic symphysis following administration 85 mL of Omnipaque 350 intravenous contrast. Sagittal and coronal reformatted images were obtained on the technologist's workstation. Oral contrast: No This CT examination was performed using dose optimization techniques as appropriate, variously including the following: *Automated exposure control *Adjustment of mA and/or kV according to patient size (this includes techniques or standardized protocols for targeted exams where dose is matched to indication/reason for exam; i.e. extremities or head) *Use of iterative reconstruction technique DLP: 1029 mGy-cm FINDINGS: LUNG BASES: The visualized lung bases are unremarkable. LIVER, GALLBLADDER, AND BILIARY TREE: Low-density liver may be fatty change. Gallstones noted. PANCREAS: Unremarkable. SPLEEN: Unremarkable. ADRENAL GLANDS: Unremarkable. KIDNEYS AND URETERS: Kidneys are nonobstructing. Dilatation of the mid to distal right ureter of uncertain etiology. Similar to previous BLADDER: Thick-walled bladder is noted GASTROINTESTINAL TRACT: Nonobstructing bowel pattern. ABDOMINAL WALL: Once again large herniation on the right containing large and small bowel. This appears similar to previous. This is not causing an obstruction. Orifice measures 7.2 cm. LYMPH NODES: Normal. VASCULAR: Unremarkable. PELVIC VISCERA: Unremarkable. OSSEOUS STRUCTURES: Unremarkable. CT/CT abdomen pelvis w IV con IMPRESSION: Exam similar to previous. There is a large herniation on the right containing bowel but this is not causing obstruction at this time. Other findings as noted above. Similar to most recent previous Fleischner guidelines were followed.
[2022-11-01 10:11] VITALS: BP 188/113; PULSE 95; RESP 20; TEMP 36.3; O2SAT 96; BMI 38.2
[2022-11-01 11:09] LABS: MANUAL DIFF FLAG NO
[2022-11-01 11:12] LABS: Basophils Percent Auto 0.6 % (0-2); Eosinophils Absolute Auto 0.1 X10*3/uL (0.0-0.4); Eosinophils Percent Auto 1.9 % (0-4); Hematocrit 39.4 % (42.0-52.0); Hemoglobin 12.8 g/dl (14.0-18.0); Imm Gran Abs Auto 0.02 X10*3/uL (0.00-0.03); Imm Gran Pct Auto 0.4 % (0.0-0.4); Lymphocytes Absolute Auto 1.4 X10*3/uL (1.2-4.9); Lymphocytes Percent Auto 27.6 % (20-40); Mean Corpuscular HGB Conc 32.5 g/dl (31.0-36.0); Mean Corpuscular Hemoglobin 27.4 pg (27.0-33.0); Mean Corpuscular Volume 84.2 fL (80.0-98.0); Mean Platelet Volume 10.4 fL (9.4-12.4); Monocytes Absolute Auto 0.4 X10*3/uL (0.1-1.2); Neutrophils Absolute Auto 3.2 x10*3/uL (2.0-8.3); Neutrophils Percent Auto 61.5 % (45-73); Platelet Count 179 X10*3/uL (160-400); Red Blood Count 4.68 X10*6/uL (4.60-5.80); Red Cell Distribution Width 13.5 % (11.0-16.0); White Blood Count 5.1 X10*3/uL (4.8-10.8)
[2022-11-01 11:16] LABS: Appearance Urine Clear; Color Urine Yellow; Glucose Urine UA Negative (Negative); Leukocyte Esterase Urine Negative (Negative); Nitrite Urine Negative (Negative); PH 5.5 (5.0-9.0); Specific Gravity - Urine 1.025 (1.005-1.025); UMIC TRIGGER UACC YES; Urine Blood Negative (Negative); Urine Ketones Negative (Negative); Urine Protein 30 (1+) mg/dL (Neg-Trace)
[2022-11-01 11:20] LABS: Bacteria Urine None Seen (None Seen); Hyaline Casts Urine 0-2 /LPF (0-2); RBC Urine 0-2 /HPF (0-2); Squamous Epithelial Cell Urine 0-2 /HPF (0-2); WBC Urine 0-5 /HPF (0-5)
[2022-11-01 11:42] LABS: Alanine Aminotransferase 26 U/L (0-40); Albumin Level 4.5 g/dL (3.5-5.0); Alkaline Phosphatase 104 U/L (39-117); Anion Gap 12 (12-20); Aspartate Amino Transferase 26 U/L (5-37); Bilirubin Direct 0.2 mg/dL (0.0-0.5); Bilirubin Total 0.8 mg/dL (0.0-1.0); Blood Urea Nitrogen 13 mg/dL (9-16); Calcium 9.6 mg/dL (8.4-10.2); Carbon Dioxide 28 mmol/L (22-29); Chloride 104 mmol/L (96-108); Creatinine Clr Calc Pharmacy 122.7; Estimated Glomerular Filt Rate > 60; Glucose Random 108 mg/dL (60-115); Lipase 29 U/L (8-78); Potassium 4.3 mmol/L (3.3-5.1); Sodium 140 mmol/L (135-145); Total Protein 7.3 g/dL (6.5-8.0)
[2022-11-01 14:00] VITALS: BP 168/97; PULSE 85; RESP 20; TEMP 36.6; O2SAT 97
--- NOTE | 2022-11-01 14:02 | ED.ABDPAIN ---
HPI - Abdominal Pain General Chief Complaint: Abdominal Pain Stated Complaint: possible bowel blockage Time Seen by Provider: 11/01/22 13:51 Source: patient and old records reviewed Limitations: no limitations History of Present Illness HPI narrative: Patient with a history of a colostomy with a recurrent robina colostomy hernia with 2 revisions in the past, waiting a 3rd revision, presents due to feeling another lump next to his hernia sac. He is concerned about a potential bowel obstruction is he has had 1 in the past. He does not, however, have any decrease in ostomy output, nausea, vomiting. Pain is qyzi-oy-mazrcing. He denies fevers or chills. No recent changes to activity or medication. He was seen here 2 weeks ago secondary to bleeding from his ileostomy. He was discharged home with stool softeners and has not had any bleeding since. Related Data Home Medications Medication Instructions Recorded Confirmed methadone 10 mg/mL oral concentrate 75 mg PO DAILY 09/23/21 02/16/22 betamethasone, augmented 0.05 % topical 02/16/22 02/16/22 topical ointment Previous Rx's Medication Instructions Recorded rivaroxaban 20 mg tablet (Xarelto) 20 mg PO DAILY #90 tabs 02/20/22 buspirone 10 mg tablet 10 mg PO BID 30 days #60 tabs 09/04/22 hydroxyzine HCl 25 mg tablet 25 - 50 mg PO Q8H PRN for anxiety 09/04/22 #90 tabs omeprazole 40 mg capsule,delayed 40 mg PO DAILY #90 caps 09/04/22 release sertraline 50 mg tablet 50 mg PO DAILY #30 tabs 09/04/22 docusate sodium 100 mg capsule 100 mg PO DAILY #30 caps 10/12/22 Allergies Allergy/AdvReac Type Severity Reaction Status Date / Time No Known Allergies Allergy Unknown UNKNOWN Verified 11/01/22 10:17 [NO KNOWN ALLERGIES] Review of Systems Comments: No fevers or chills Comments: No chest pain Comments: No cough Comments: No nausea vomiting or diarrhea. Pain and mass as described in HPI Comments: No urinary symptom Musculoskeletal: Reports no additional musculoskeletal complaints Comments: No changes to skin color Comments: No weakness PMFSH Past Medical History Medical History (Updated 11/01/22 @ 16:28 by Geronimo Ferraro MD) Hemorrhage from ileostomy Hepatic steatosis Hirschsprung's disease History of substance abuse Hx of gastric ulcer Ileostomy in place Localized swelling of both lower legs Mixed hyperlipidemia Obesity (BMI 30-39.9) On anticoagulant therapy Parastomal hernia Pulmonary embolism Surgical History History of colonoscopy Hx of endoscopy Hx of esophagogastroduodenoscopy Status post repair of ventral hernia Family History Family History Father Leukemia Mother HTN (hypertension) Diabetes type 2, controlled Sister Lupus Other Mental health disorder Social History Social History Household Members: Family Household Members Other:: Lives with his mother. His father just recently Housing: House Alcohol intake: current Alcohol intake frequency: holidays/special occasions only Patient Tobacco Use Status: Former Tobacco user Smoked in Last 30 Days: No e-Cigarette/Vaping Use: Never Used Second Hand Smoke Exposure: No Use of substances other than those prescribed or required for medical reasons: No Advance Directives: No service: No Current occupational status: disabled Cognitive needs: No Hearing needs: No Vision needs: No Physical Exam ED Vital Signs: Vital Signs - 24 hr 11/01/22 10:11 11/01/22 14:00 11/01/22 15:14 Temperature 97.3 F 98 F 98.0 F Pulse Rate 95 85 83 Respiratory Rate 20 20 16 Blood Pressure 188/113 H 168/97 H 173/95 H Pulse Oximetry 96 97 96 Oxygen Delivery Method Room Air Room Air Room Air BMI result Body Mass Index 38.2 Const Other: Awake alert. No acute distress. Ambulatory. Resp Other: No respiratory symptoms. No respiratory distress Cardio Other: Regular rate and rhythm GI Other: Abdomen is soft, nontender. It is very distended at the site of his ileostomy with large 20 x 20 cm hernia. It is reducible without difficulty. Skin Other: Warm pink and dry. No erythema around his ileostomy site Neuro Other: No obvious focal neuro deficits Medical Decision Making Medical Decision Making MDM Narrative: Patient with new lump medial to his ileostomy hernia site. Likely worsening of his hernia for which he is due for repair and was STIR. No obvious signs or symptoms of obstruction at this time, however, given change in hernia, CT scan is indicated. The will also evaluate for potential obstruction. 16:26. CT scan shows no obvious difference from prior. There is no evidence of obstruction or increase in size of hernia. Patient is stable for discharge home with a final diagnosis of parastomal hernia without evidence of obstruction Lab Data 11/01/22 11:06 11/01/22 11:06 Labs: Lab Results 11/01/22 11/01/22 11/01/22 Range/Units 10:59 11:06 11:06 WBC 5.1 (4.8-10.8) X10*3/uL RBC 4.68 (4.60-5.80) X10*6/uL Hgb 12.8 L (14.0-18.0) g/dl Hct 39.4 L (42.0-52.0) % MCV 84.2 (80.0-98.0) fL MCH 27.4 (27.0-33.0) pg MCHC 32.5 (31.0-36.0) g/dl RDW 13.5 (11.0-16.0) % Plt Count 179 (160-400) X10*3/uL MPV 10.4 (9.4-12.4) fL Immature Gran % (Auto) 0.4 (0.0-0.4) % Neut % (Auto) 61.5 (45-73) % Lymph % (Auto) 27.6 (20-40) % [place] % (Auto) 8.0 (2-11) % Eos % (Auto) 1.9 (0-4) % Baso % (Auto) 0.6 (0-2) % Lymph # (Auto) 1.4 (1.2-4.9) X10*3/uL [place] # (Auto) 0.4 (0.1-1.2) X10*3/uL Eos # (Auto) 0.1 (0.0-0.4) X10*3/uL Baso # (Auto) 0.0 (0.0-0.2) X10*3/uL Abs Immat Gran (auto) 0.02 (0.00-0.03) X10*3/uL Absolute Neuts (auto) 3.2 (2.0-8.3) x10*3/uL Absolute Nucleated RBC 0.000 (0.0-0.012) X10*3/uL Nucleated RBC % (auto) 0.0 (0.0-0.2) /100WBC Sodium 140 (135-145) mmol/L Potassium 4.3 (3.3-5.1) mmol/L Chloride 104 (96-108) mmol/L Carbon Dioxide 28 (22-29) mmol/L Anion Gap 12 (12-20) BUN 13 (9-16) mg/dL Creatinine 0.93 (0.5-1.4) mg/dL Estim Creat Clear Calc 122.7 Estimated GFR > 60 Random Glucose 108 (60-115) mg/dL Calcium 9.6 D (8.4-10.2) mg/dL Total Bilirubin 0.8 (0.0-1.0) mg/dL Direct Bilirubin 0.2 (0.0-0.5) mg/dL AST 26 (5-37) U/L ALT 26 (0-40) U/L Alkaline Phosphatase 104 (39-117) U/L Total Protein 7.3 (6.5-8.0) g/dL Albumin 4.5 (3.5-5.0) g/dL Lipase 29 (8-78) U/L Urine Color Yellow Urine Appearance Clear Urine pH 5.5 (5.0-9.0) Ur Specific [place] 1.025 (1.005-1.025) Urine Protein 30 (1+) H (Neg-Trace) mg/dL Urine Glucose (UA) Negative (Negative) mg/dL Urine Ketones Negative (Negative) mg/dL Urine Blood Negative (Negative) Urine Nitrite Negative (Negative) Ur Leukocyte Esterase Negative (Negative) Urine RBC 0-2 (0-2) /HPF Urine WBC 0-5 (0-5) /HPF Ur Squamous Epith Cells 0-2 (0-2) /HPF Urine Bacteria None Seen (None Seen) Hyaline Casts 0-2 (0-2) /LPF Medications Administered Discontinued Medications Generic Name Dose Route Start Last Admin Trade Name Freq PRN Reason Stop Dose Admin Iohexol 100 ml 11/01/22 14:57 11/01/22 14:58 Iohexol 350 Mg/Ml 100 Ml Infus..Btl IV 11/01/22 14:58 85 ml ONCE ONE Administration Discharge Plan Discharge Clinical Impression: Ileostomy in place, Parastomal hernia Patient Disposition: Home, Self-Care Instructions: Ileostomy Care (ED), Ventral Hernia (ED) Additional Instructions: Continue current care and follow-up with your surgeon as planned Prescriptions: No Action Xarelto 20 mg tablet 20 mg PO DAILY Qty: 90 4RF methadone 10 mg/mL concentrate 75 mg PO DAILY Rx Instructions: [facility] PHONE #'s - [phone] OR [phone] docusate sodium 100 mg capsule 100 mg PO DAILY Qty: 30 0RF buspirone 10 mg tablet 10 mg PO BID 30 Days Qty: 60 2RF sertraline 50 mg tablet 50 mg PO DAILY Qty: 30 1RF omeprazole 40 mg capsule,delayed release(DR/EC) 40 mg PO DAILY Qty: 90 1RF hydroxyzine HCl 25 mg tablet 25 - 50 mg PO Q8H PRN (Reason: for anxiety) Qty: 90 5RF betamethasone, augmented 0.05 % ointment topical
--- NOTE | 2022-11-01 14:25 | PC.NURSE ---
pt alert/oriented. vitals stable. presents with swelling around colostomy site due to a hernia. pt is awaiting a third hernia revision. vitals stable. pt reports little to no pain. IV inserted per CT with contrast.
[2022-11-01] MEDS: iohexoL 350 MG/ML 100 ML INFUS..BTL IV (14:58)
[2022-11-01 15:14] VITALS: BP 173/95; PULSE 83; RESP 16; TEMP 36.7; O2SAT 96
== END 2022-11-01 17:31 | disposition home or self-care (01) ==
PROVIDERS: Emergency Provider Emergency Medicine; PCP Internal Medicine
DX: K43.5 Parastomal hernia without obstruction or gangrene (principal); R10.9 Unspecified abdominal pain; Z87.891 Personal history of nicotine dependence; Z79.899 Other long term (current) drug therapy
CPT/HCPCS: 36415; 74177; 80048; 80076; 81001; 83690; 85025; 99284; Q9967

== ENCOUNTER → 2022-11-13 14:51 | Outpatient (BNV) | payer MEDICARE, MEDICAID, SELFPAY | PROVIDERS: PCP Internal Medicine; Visit Provider Internal Medicine Medical Oncology | DX: I26.99 Other pulmonary embolism without acute cor pulmonale (principal) | CPT/HCPCS: 99204; 99213 ==

== ENCOUNTER 2022-12-19 13:40 | Outpatient (REF) | payer MEDICARE, MEDICAID, SELFPAY ==
--- NOTE | ~2022-12-19 | XR_ITS ---
EXAMINATION: XR CHEST CLINICAL INFORMATION: Dizziness and giddiness COMPARISON: Previous CT scan of the abdomen and pelvis lung windows and chest x-ray October 2022 TECHNIQUE: 2 views of the chest were obtained. FINDINGS: The cardiac and mediastinal contours are stable. There is increased density at the left cardiophrenic angle. This is similar to previous chest x-rays and when compared with lung windows from previous abdominal and pelvic CT scans probably related to prominent epicardial fat. The lungs are otherwise clear. No pleural effusion or pneumothorax. Mild degenerative changes of the spine. XR/XR chest 2V IMPRESSION: No evidence for acute disease in the chest.
== END 2022-12-19 13:41 | disposition home or self-care (01) ==
LOC: HO.HMGCX 13:40
PROVIDERS: PCP Internal Medicine; Visit Provider Internal Medicine
DX: R42 Dizziness and giddiness (principal)
CPT/HCPCS: 71046

== ENCOUNTER 2023-03-29 13:25 | Outpatient (AMB) | payer MEDICARE, MEDICAID, SELFPAY ==
--- NOTE | 2023-03-29 14:17 | MHC.OFFWIV ---
Intake Vital Signs 03/29/23 14:18 Weight 238 lb BP 152/90 H Blood Pressure Location Rt brachial Position Sitting Pulse 82 Pulse Source Pulse Oximeter Temp 98.1 F Temp Source Temporal Artery Scan Pulse Oximetry (%) 97 Intake Visit Reasons: EST/cyst on back on neck Intake Note: pt is her efor c/o cyst on back of neck, possible boil Patient Tobacco Use Status: Former Tobacco user Allergies No Known Allergies [NO KNOWN ALLERGIES] Allergy (Unknown, Verified 03/29/23 14:17) UNKNOWN Do you need a note to return to daycare/school/sports/work: Yes HPI HPI Comments History of Present Illness Details The patient presents to urgent care for evaluation of a cyst on the back of his neck. He states it has been present for about a week to 2 it has progressively become larger and more painful. [facility] Medical History Hemorrhage from ileostomy Hepatic steatosis Hirschsprung's disease History of substance abuse Hx of gastric ulcer Ileostomy in place Localized swelling of both lower legs Mixed hyperlipidemia Obesity (BMI 30-39.9) On anticoagulant therapy Parastomal hernia Pulmonary embolism Surgical History History of colonoscopy Hx of endoscopy Hx of esophagogastroduodenoscopy Status post repair of ventral hernia Family History Father Leukemia Mother HTN (hypertension) Diabetes type 2, controlled Sister Lupus Other Mental health disorder Social History Household Members: Family Household Members Other:: Lives with his mother. His father just recently Housing: House Alcohol intake: current Alcohol intake frequency: holidays/special occasions only Patient Tobacco Use Status: Former Tobacco user e-Cigarette/Vaping Use: Never Used Second Hand Smoke Exposure: No service: No Current occupational status: disabled Cognitive needs: No Hearing needs: No Vision needs: No Review of Systems Eyes Reports no additional complaints ENT Reports Normal hearing present and Denies dysphagia Card Denies dyspnea and Denies slow heart rate Resp Denies cough and Denies dyspnea GI Denies dysphagia and Denies heartburn Denies dysuria Musc Denies tingling Skin/Breast Reports lesions, Denies skin ulcer and Denies unusual bruising Neuro Reports Normal hearing present, Denies Sensory deficit (Neuro), Denies tingling and Denies paresthesias Physical Exam Vital Signs: Last Vital Signs Temp 98.1 F 03/29/23 14:18 Pulse 82 03/29/23 14:18 BP 152/90 H 03/29/23 14:18 Pulse Ox 97 03/29/23 14:18 Const General: healthy appearing and no acute distress Resp Effort & Inspection: normal respiratory effort and able to speak in complete sentences Skin Other: Mid upper T1 region is a area of erythema and edema and focal fluctuance about 2 cm in diameter raised the skin surface. Tender to palpation Neuro Cranial nerves: Yes Normal hearing present Sensory Exam: No Sensory deficit (Neuro) Assessment & Plan Assessment & Plan (1) Sebaceous cyst: Code(s): L72.3 - Sebaceous cyst (2) Encounter for incision and drainage procedure: Code(s): Z76.89 - Persons encountering health services in other specified circumstances Plan Symptoms consistent with localized abscess/sebaceous cyst. Patient has given verbal consent for incision and drainage. Incision and drainage Procedure - I&D: Verbal consent was obtained from the patient with the risks and benefits given to patient. Area was prepped using betadine. Anesthesia was achieved using lidocaine 1% Using a No 11 blade a 5 mm incision was made into the abscess. Bloody purulent fluid was expressed. Copious caseous material expressed. A sterile dressing with antibiotic ointment was applied. Pt tolerated the procedure well. Coding Level of Care Code Est Pt Level 3 (87797) Diagnoses Sebaceous cyst L72.3 Encounter for incision and drainage procedure Z76.89
[2023-03-29 14:18] VITALS: BP 152/90; PULSE 82; TEMP 36.7; O2SAT 97
== END 2023-03-29 15:26 | disposition home or self-care (01) ==
PROVIDERS: PCP Internal Medicine; Visit Provider Emergency Medicine
DX: L72.3 Sebaceous cyst (principal); Z76.89 Persons encountering health services in other specified circumstances
CPT/HCPCS: 99213

== ENCOUNTER 2023-08-14 13:18 | Emergency (ER) | payer MEDICARE, MEDICAID, SELFPAY ==
--- NOTE | 2023-08-14 13:45 | ED.ABDPAIN ---
HPI - Abdominal Pain General Chief Complaint: Abdominal Pain Stated Complaint: GI Bleed Colostomy Related Data Home Medications Medication Instructions Recorded Confirmed methadone 10 mg/mL oral concentrate 75 mg PO DAILY 09/23/21 08/15/23 Previous Rx's Medication Instructions Recorded rivaroxaban 20 mg tablet (Xarelto) 20 mg PO DAILY #90 tabs 02/20/22 hydroxyzine HCl 25 mg tablet 25 - 50 mg (1 - 2 x 25 mg) PO Q8H 01/03/23 PRN for anxiety #90 tabs lisinopril 5 mg tablet 5 mg PO DAILY 30 days #30 tabs 05/23/23 omeprazole 40 mg capsule,delayed 40 mg PO DAILY #90 caps 06/30/23 release sertraline 50 mg tablet 50 mg PO DAILY 90 days #90 tabs 07/16/23 buspirone 10 mg tablet 10 mg PO BID 30 days #60 tabs 08/15/23 Allergies Allergy/AdvReac Type Severity Reaction Status Date / Time No Known Allergies Allergy Unknown UNKNOWN Verified 08/15/23 13:10 [NO KNOWN ALLERGIES] [facility] Past Medical History Medical History History of substance abuse Obesity (BMI 30-39.9) Mixed hyperlipidemia Localized swelling of both lower legs Hepatic steatosis Parastomal hernia Hemorrhage from ileostomy On anticoagulant therapy Hx of gastric ulcer 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 His father just recently Housing: House Alcohol intake: current Alcohol intake frequency: holidays/special occasions only Patient Tobacco Use Status: Former Tobacco user e-Cigarette/Vaping Use: Never Used Second Hand Smoke Exposure: No service: No Current occupational status: disabled Cognitive needs: No Hearing needs: No Vision needs: No Physical Exam ED Vital Signs: BMI result Body Mass Index 38.4 Course Course Course Narrative: This is a rapid medical exam. Deferred additional HPI, ROS, PE to primary provider. 42-year-old male with past medical history of Hirschsprung disease, hepatic steatosis, history of gastric ulcer, ileostomy, anticoagulation therapy, parastomal hernia, ventral hernia, PE, on anticoagulation therapy here with concern for bleeding from his ileostomy noted today at 10am. Will need labs VSS Medical Decision Making Lab Data 08/14/23 14:20 08/14/23 14:20 Labs: Lab Results 08/14/23 Range/Units 14:20 WBC 5.0 (4.8-10.8) X10*3/uL RBC 4.63 (4.60-5.80) X10*6/uL Hgb 12.6 L (14.0-18.0) g/dl Hct 38.0 L (42.0-52.0) % MCV 82.1 (80.0-98.0) fL MCH 27.2 (27.0-33.0) pg MCHC 33.2 (31.0-36.0) g/dl RDW 14.6 (11.0-16.0) % Plt Count 152 L (160-400) X10*3/uL MPV 10.4 (9.4-12.4) fL Immature Gran % (Auto) 0.2 (0.0-0.4) % Neut % (Auto) 66.2 (45-73) % Lymph % (Auto) 24.8 (20-40) % [place] % (Auto) 6.4 (2-11) % Eos % (Auto) 1.8 (0-4) % Baso % (Auto) 0.6 (0-2) % Lymph # (Auto) 1.2 (1.2-4.9) X10*3/uL [place] # (Auto) 0.3 (0.1-1.2) X10*3/uL Eos # (Auto) 0.1 (0.0-0.4) X10*3/uL Baso # (Auto) 0.0 (0.0-0.2) X10*3/uL Abs Immat Gran (auto) 0.01 (0.00-0.03) X10*3/uL Absolute Neuts (auto) 3.3 (2.0-8.3) x10*3/uL Absolute Nucleated RBC 0.000 (0.0-0.012) X10*3/uL Nucleated RBC % (auto) 0.0 (0.0-0.2) /100WBC PT 15.6 H (11.1-13.3) SEC INR 1.3 H (0.9-1.1) Sodium 140 (135-145) mmol/L Potassium 4.3 (3.3-5.1) mmol/L Chloride 103 (96-108) mmol/L Carbon Dioxide 26 (22-29) mmol/L Anion Gap 15 (12-20) BUN 13 (9-16) mg/dL Creatinine 0.99 (0.5-1.4) mg/dL Estim Creat Clear Calc 114.4 Estimated GFR > 60 Random Glucose 119 H (60-115) mg/dL Calcium 9.8 (8.4-10.2) mg/dL Total Bilirubin 0.5 (0.0-1.0) mg/dL Direct Bilirubin 0.1 (0.0-0.5) mg/dL AST 22 (5-37) U/L ALT 22 (0-40) U/L Alkaline Phosphatase 83 (39-117) U/L Total Protein 7.6 (6.5-8.0) g/dL Albumin 4.5 (3.5-5.0) g/dL Discharge Plan Discharge Clinical Impression: Abdominal pain Patient Disposition: Left W/O Completing Treatment Prescriptions: No Action Xarelto 20 mg tablet 20 mg PO DAILY Qty: 90 4RF omeprazole 40 mg capsule,delayed release(DR/EC) 40 mg PO DAILY Qty: 90 1RF sertraline 50 mg tablet 50 mg PO DAILY 90 Days Qty: 90 1RF methadone 10 mg/mL concentrate 75 mg PO DAILY Rx Instructions: [facility] PHONE #'s - [phone] OR [phone] hydroxyzine HCl 25 mg tablet 25 - 50 mg PO Q8H PRN (Reason: for anxiety) Qty: 90 5RF buspirone 10 mg tablet 10 mg PO BID 30 Days Qty: 60 3RF lisinopril 5 mg tablet 5 mg PO DAILY 30 Days Qty: 30 2RF Discharge Date/Time: 08/14/23 22:45
[2023-08-14 13:46] VITALS: BP 153/102; PULSE 102; RESP 20; TEMP 36.8; O2SAT 96; BMI 38.4
[2023-08-14 14:23] LABS: MANUAL DIFF FLAG NO
[2023-08-14 14:25] LABS: Basophils Percent Auto 0.6 % (0-2); Eosinophils Absolute Auto 0.1 X10*3/uL (0.0-0.4); Eosinophils Percent Auto 1.8 % (0-4); Hemoglobin 12.6 g/dl (14.0-18.0); Imm Gran Abs Auto 0.01 X10*3/uL (0.00-0.03); Imm Gran Pct Auto 0.2 % (0.0-0.4); Lymphocytes Absolute Auto 1.2 X10*3/uL (1.2-4.9); Lymphocytes Percent Auto 24.8 % (20-40); Mean Corpuscular HGB Conc 33.2 g/dl (31.0-36.0); Mean Corpuscular Hemoglobin 27.2 pg (27.0-33.0); Mean Corpuscular Volume 82.1 fL (80.0-98.0); Mean Platelet Volume 10.4 fL (9.4-12.4); Monocytes Absolute Auto 0.3 X10*3/uL (0.1-1.2); Monocytes Percent Auto 6.4 % (2-11); Neutrophils Absolute Auto 3.3 x10*3/uL (2.0-8.3); Neutrophils Percent Auto 66.2 % (45-73); Platelet Count 152 X10*3/uL (160-400); Red Blood Count 4.63 X10*6/uL (4.60-5.80); Red Cell Distribution Width 14.6 % (11.0-16.0)
[2023-08-14 14:39] LABS: INTERNATIONAL NORM RATIO 1.3 (0.9-1.1); Prothrombin Time 15.6 SEC (11.1-13.3)
[2023-08-14 14:44] LABS: Alanine Aminotransferase 22 U/L (0-40); Albumin Level 4.5 g/dL (3.5-5.0); Alkaline Phosphatase 83 U/L (39-117); Anion Gap 15 (12-20); Aspartate Amino Transferase 22 U/L (5-37); Bilirubin Direct 0.1 mg/dL (0.0-0.5); Bilirubin Total 0.5 mg/dL (0.0-1.0); Blood Urea Nitrogen 13 mg/dL (9-16); Calcium 9.8 mg/dL (8.4-10.2); Carbon Dioxide 26 mmol/L (22-29); Chloride 103 mmol/L (96-108); Creatinine Clr Calc Pharmacy 114.4; Estimated Glomerular Filt Rate > 60; Glucose Random 119 mg/dL (60-115); Potassium 4.3 mmol/L (3.3-5.1); Sodium 140 mmol/L (135-145); Total Protein 7.6 g/dL (6.5-8.0)
== END 2023-08-14 22:45 | disposition left against medical advice (07) ==
PROVIDERS: Nurse Practitioner Family; Emergency Provider Emergency Medicine; PCP Internal Medicine
DX: Z43.2 Encounter for attention to ileostomy (principal); Q43.1 Hirschsprung's disease; K76.0 Fatty (change of) liver, not elsewhere classified; I26.99 Other pulmonary embolism without acute cor pulmonale; E78.5 Hyperlipidemia, unspecified; Z79.01 Long term (current) use of anticoagulants
CPT/HCPCS: 36415; 80048; 80076; 85025; 85610; 99281; 99283

== ENCOUNTER 2023-08-15 12:04 | Outpatient (AMB) | payer MEDICARE, MEDICAID, SELFPAY ==
[2023-08-15 12:31] VITALS: BP 130/84; PULSE 95; O2SAT 96; BMI 38.7
--- NOTE | 2023-08-15 12:32 | MHC.PC.OV ---
Vital Signs 08/15/23 12:31 Height 5 ft 7 in Weight 247 lb 2 oz BMI 38.7 BP 130/84 Blood Pressure Location Lt brachial Position Sitting Pulse 95 Pulse Source Pulse Oximeter Pulse Oximetry (%) 96 Oxygen Delivery Method Room Air Intake Visit Reasons: Hypertension Project Engineering Manager Required: No Accompanied by: Self / Same As Patient Allergies No Known Allergies [NO KNOWN ALLERGIES] Allergy (Unknown, Verified 08/15/23 13:10) UNKNOWN Medication List - Last Reconciled 08/15/23 by Sheng Tamayo MD buspirone 10 mg PO BID 30 days hydroxyzine HCl 25 - 50 mg (1 - 2 x 25 mg) PO Q8H PRN lisinopril 5 mg PO DAILY 30 days methadone 75 mg PO DAILY omeprazole 40 mg PO DAILY rivaroxaban (Xarelto) 20 mg PO DAILY sertraline 50 mg PO DAILY 90 days Tobacco use date assessed: 08/15/23 Dental Screening Dental Screen Date: 08/15/23 Did you have a dental visit in the last 12 months?: No Did you have a dental problem in the last 6 months where you did not have access to dental care?: No Was dental information given to patient?: No HPI Hypertension HPI Details Patient comes in today for his follow up visit States that he presently feels okay He went to the ER yesterday when he noticed some reddish discharge/drainage oozing from his ileostomy in the morning and he was concerned about possible bleeding from his ileostomy, prompting him to go to the ER to get checked Work ups done in the ER were all normal and patient now thinks that this was mostly due to the Monster drink that he had earlier yesterday morning, which was red in color States that he currently feels okay He denies any headaches or dizziness Denies any chest pains, no SOB No nausea/vomiting, no abdominal pain States that his stool from his ileostomy looks normal with no blood and he no longer has any reddish drainage from his ileostomy Needs his Buspirone Rx refilled States that he had some labs done at the ER yesterday and is wondering if they included all of the labs that he needed to get done or not [facility] Medical History History of substance abuse Obesity (BMI 30-39.9) Mixed hyperlipidemia Localized swelling of both lower legs Hepatic steatosis Parastomal hernia Hemorrhage from ileostomy On anticoagulant therapy Hx of gastric ulcer 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 His father just recently Housing: House Alcohol intake: current Alcohol intake frequency: holidays/special occasions only Patient Tobacco Use Status: Former Tobacco user e-Cigarette/Vaping Use: Never Used Second Hand Smoke Exposure: No service: No Current occupational status: disabled Cognitive needs: No Hearing needs: No Vision needs: No Questionnaire PHQ-9 Over the last 2 weeks, how often have you been bothered by any of the following problems? 1. Little interest or pleasure in doing things: several days 2. Feeling down, depressed, or hopeless: several days 3. Trouble falling or staying asleep, or sleeping too much: not at all 4. Feeling tired or having little energy: not at all 5. Poor appetite or overeating: not at all 6. Feeling bad about yourself - or that you are a failure or have let yourself or your family down: not at all 7. Trouble concentrating on things, such as reading the newspaper or watching television: not at all 8. Moving or speaking so slowly that other people could have noticed. Or the opposite - being so fidgety or restless that you have been moving around a lot more than usual: not at all 9. Thoughts that you would be better off or of hurting yourself in some way: not at all Total score: 2 Depression Screening Interpretation: Negative Depression Screening Done: Yes 05658 - PHQ-9 Billing: Yes Source: Developed by Drs. Juan Mcgrath, Christel Floyd, Darren Funez and colleagues, with an educational edd from [employer]. Thrive Questionnaire Date Thrive assessed: 08/15/23 I am a: Patient What is your living situation today?: I have a steady place to live Within the past 12 months, did the food you bought not last and you didn't have the money to get more?: Never true Within the past 12 months, did you worry whether your food would run out before you got money to buy more?: Never true Do you have trouble paying for medicines?: No Do you have trouble getting transportation to medical appointments?: No Do you have trouble paying your heating and electricity bill?: No Do you have trouble taking care of your child, family member or friend?: No Do you have trouble with day-to-day activities such as bathing, preparing meals, shopping, managing finances, etc.?: No Are you currently unemployed and looking for a job?: No Are you interested in more education?: No Please select the resources that you would like help with: None Currently or been in a relationship where the following occur: no concerns reported THRIVE Score: 0 AUDIT C Alcohol Use Questionnaire (AUDIT-C) 1. How often do you have a drink containing alcohol?: Monthly or less 2. How many drinks containing alcohol do you have on a typical day when you are drinking?: 1 or 2 3. How often do you have six or more drinks on one occasion?: Never Total Score: 1 Score Reviewed/Action Taken: Yes SARAHY-7 AMB Questionnaire SARAHY-7 Date SARAHY - 7 assessed: 08/15/23 Feeling nervous, anxious, or on edge: 3 = Nearly every day Not being able to stop or control worryin = More than half the days Worrying too much about different things: 2 = More than half the days Trouble relaxin = More than half the days Being so restless that it is hard to sit still: 2 = More than half the days Becoming easily annoyed or irritable: 1 = Several days Feeling afraid as if something awful might happen: 0 = Not at all Total SARAHY-7 score (0-4 normal; 5-9 mild; 10-14 moderate; 15-21 severe): 12 Source: Developed by Drs. Juan Mcgrath, Darren Turner and colleagues, with an educational edd from [employer]. SARAHY-7 Assessment Billing SARAHY-7 Assessment Tool: SARAHY-7 Assessment 93838 Review of Systems Const Denies chills, Denies fatigue, Denies fever(s) and Denies headache(s) ENT Denies dysphagia, Denies dizziness, Denies otalgia, Denies headache(s), Denies odynophagia and Denies sore throat Card Denies chest pain, Denies palpitations and Denies dyspnea Resp Denies cough and Denies dyspnea GI Details: (+) ostomy with a large parastomal hernia around it Denies abdominal pain, Denies constipation, Denies dysphagia, Denies heartburn, Reports loose stools (on and off - noted in his ostomy bag), Denies nausea, Denies odynophagia and Denies vomiting Denies dysuria, Denies nocturia and Denies urinary frequency Neuro Denies dizziness and Denies headache(s) Endo Denies fatigue and Denies palpitations Physical exam (Primary Care) Vital Signs: Last Vital Signs Pulse 95 08/15/23 12:31 BP 130/84 08/15/23 12:31 Pulse Ox 96 08/15/23 12:31 Oxygen Delivery Method Room Air 08/15/23 12:31 BMI result Body Mass Index 38.7 Tobacco/Smoking Status: Tobacco use Status Tobacco use date assessed 08/15/23 08/15/23 12:36 Patient Tobacco Use Status Former Tobacco user 08/15/23 12:36 e-Cigarette/Vaping Use Never Used 08/15/23 12:36 PHQ-9: PHQ-9 Score PHQ-9: Total score 2 08/15/23 12:36 Depression Screening Interpretation: Negative Thrive Assessment: Date of Thrive Assessment Date Thrive assessed 08/15/23 08/15/23 12:36 Currently or been in a relationship where the following occur: no concerns reported Const General: no acute distress and alert Neck Neck: Yes no lymphadenopathy and Yes supple Resp Auscultation: clear to auscultation bilaterally, no rales and no wheezes Cardio Rate: regular rate Rhythm: regular rhythm Heart sounds: no murmurs GI Inspection: Yes other ((+) ostomy (bag with brown stool) and surrounding parastomal hernia) Palpation (GI): Soft to palpation and nontender Extrem General: Yes no clubbing, cyanosis or edema Results Reviewed Results Reviewed: Laboratory Tests 08/14/23 14:20 WBC 5.0 Hgb 12.6 L Hct 38.0 L Plt Count 152 L Sodium 140 Potassium 4.3 Creatinine 0.99 Estimated GFR > 60 Random Glucose 119 H Calcium 9.8 AST 22 ALT 22 Assessment and Plan Assessment & Plan (1) Hirschsprung's disease: Comment: hx of Hirschsprung's s/p subtotal colectomy 2007 Code(s): Q43.1 - Hirschsprung's disease Plan: S/P colectomy secondary to bowel obstruction; currently has an ostomy which is working well (2) Parastomal hernia: Code(s): K43.5 - Parastomal hernia without obstruction or gangrene Qualifiers: Obstruction and gangrene presence: without obstruction or gangrene Qualified Code(s): K43.5 - Parastomal hernia without obstruction or gangrene Plan: Patient has been reportedly cautioned that surgical repair of this would be very risky and will only be considered if he can lose a significant amount of his current weight, which he is still struggling to do so Follow up with surgery at [email or web address] in [place] as scheduled Advised that the reddish drainage that he had from his ileostomy yesterday was most likely the Monster drink that he had shortly before his symptoms started - states that he has not seen any further recurrence of this since (3) Pulmonary embolism: Code(s): I26.99 - Other pulmonary embolism without acute cor pulmonale Qualifiers: Pulmonary embolism type: unspecified Chronicity: unspecified Acute cor pulmonale presence: without acute cor pulmonale Qualified Code(s): I26.99 - Other pulmonary embolism without acute cor pulmonale Plan: Continue Xarelto 20 mg QD (4) Mixed hyperlipidemia: Code(s): E78.2 - Mixed hyperlipidemia Plan: Results of his labs done at the ER yesterday reviewed and discussed with patient Reinforced low cholesterol diet Will send him for labs to check his fasting lipids REYMUNDO for follow up as his labs done at the ER yesterday was non-fasting and did not include his cholesterol level (5) GERD (gastroesophageal reflux disease): Code(s): K21.9 - Gastro-esophageal reflux disease without esophagitis Qualifiers: Esophagitis presence: without esophagitis Qualified Code(s): K21.9 - Gastro-esophageal reflux disease without esophagitis Plan: Dietary restrictions reinforced Continue Omeprazole 40 mg QD (6) Hx of gastric ulcer: Comment: EGD done by MD Rene--07/13/17-[facility] [place] Code(s): Z87.19 - Personal history of other diseases of the digestive system Plan: No recurrence of GI bleeding lately Continue Omeprazole 40 mg QD Follow up with GI as scheduled (7) Varicose veins of both lower extremities: Code(s): I83.93 - Asymptomatic varicose veins of bilateral lower extremities Qualifiers: Varicose vein complication: unspecified Qualified Code(s): I83.93 - Asymptomatic varicose veins of bilateral lower extremities Plan: Follow up with vascular surgery (Dr. Mead) as scheduled (8) History of substance abuse: Code(s): F19.11 - Other psychoactive substance abuse, in remission Plan: In remission Continue Methadone 75 mg QD Follow up with the Methadone clinic as scheduled (9) SARAHY (generalized anxiety disorder): Code(s): F41.1 - Generalized anxiety disorder Plan: Continue Buspirone 10 mg BID (Rx refilled), Sertraline 50 mg QD and Hydroxyzine 25 mg 1 to 2 tablets TID PRN Follow up with psychiatry as scheduled (10) Obesity (BMI 30-39.9): Code(s): E66.9 - Obesity, unspecified Plan: Reinforced diet/exercise as tolerated/lose weight Plan Follow up in 4 months Orders: Orders Glucose Fasting Today R73.9 - Hyperglycemia, unspecified UA CC w/rflx Micro + Cult Today R30.0 - Dysuria TSH reflex Free T4 Today E78.00 - Pure hypercholesterolemia, unspecified, R73.9 - Hyperglycemia, unspecified Lipid Panel Today E78.00 - Pure hypercholesterolemia, unspecified Hemoglobin A1c Today R73.9 - Hyperglycemia, unspecified Medications: Refilled buspirone 10 mg PO BID 30 days 60 tabs 3RF Coding Level of Care Code Est Pt Level 4 (63991) Diagnoses Hirschsprung's disease Q43.1 Parastomal hernia without obstruction or gangrene K43.5 Obstruction and gangrene presence: without obstruction or gangrene Pulmonary embolism without acute cor pulmonale, unspecified chronicity, unspecified pulmonary embolism type I26.99 Pulmonary embolism type: unspecified Chronicity: unspecified Acute cor pulmonale presence: without acute cor pulmonale Mixed hyperlipidemia E78.2 Gastroesophageal reflux disease without esophagitis K21.9 Esophagitis presence: without esophagitis Hx of gastric ulcer Z87.19 Varicose veins of both lower extremities, unspecified whether complicated I83.93 Varicose vein complication: unspecified History of substance abuse F19.11 SARAHY (generalized anxiety disorder) F41.1 Obesity (BMI 30-39.9) E66.9 Additional Codes SARAHY-7 Assessment Billing - SARAHY-7 Assessment Tool: SARAHY-7 Assessment [id number] ([id number])
== END 2023-08-15 13:11 | disposition home or self-care (01) ==
PROVIDERS: PCP Internal Medicine; Visit Provider Internal Medicine
DX: K43.5 Parastomal hernia without obstruction or gangrene (principal); I26.99 Other pulmonary embolism without acute cor pulmonale; Q43.1 Hirschsprung's disease; F19.11 Other psychoactive substance abuse, in remission; E78.2 Mixed hyperlipidemia; K21.9 Gastro-esophageal reflux disease without esophagitis; Z87.19 Personal history of other diseases of the digestive system; I83.93 Asymptomatic varicose veins of bilateral lower extremities; F41.1 Generalized anxiety disorder; E66.9 Obesity, unspecified
CPT/HCPCS: 99214

== ENCOUNTER 2023-08-17 08:46 | Outpatient (REF) | payer MEDICARE, MEDICAID, SELFPAY ==
[2023-08-17 10:18] LABS: Estimated Average Glucose 111 mg/dL; Hemoglobin A1c % 5.5 % (<6.0)
[2023-08-17 10:40] LABS: Alanine Aminotransferase 21 U/L (0-40); Albumin Level 4.1 g/dL (3.5-5.0); Alkaline Phosphatase 78 U/L (39-117); Anion Gap 13 (12-20); Aspartate Amino Transferase 28 U/L (5-37); Bilirubin Total 0.3 mg/dL (0.0-1.0); Blood Urea Nitrogen 14 mg/dL (9-16); Carbon Dioxide 26 mmol/L (22-29); Chloride 104 mmol/L (96-108); Cholesterol 217 mg/dL (<200); Estimated Glomerular Filt Rate > 60; Glucose Fasting 143 mg/dL (60-99); HDL Cholesterol 34 mg/dL (>40); Sodium 139 mmol/L (135-145); Total Protein 7.1 g/dL (6.5-8.0); Triglycerides 467 mg/dL (<150)
[2023-08-17 11:03] LABS: TSH reflex Free T4 3.22 uIU/mL (0.32-4.0); Vitamin D 25-OH Total 21.1 ng/mL (>30)
[2023-08-17 11:10] LABS: Appearance Urine Clear; Color Urine Yellow; Glucose Urine UA Negative (Negative); Leukocyte Esterase Urine Negative (Negative); Nitrite Urine Negative (Negative); PH 5.5 (5.0-9.0); Specific Gravity - Urine 1.025 (1.005-1.025); Urine Blood Negative (Negative); Urine Ketones Trace mg/dL (Negative); Urine Protein Negative (Neg-Trace)
== END 2023-08-17 08:47 | disposition home or self-care (01) ==
LOC: HO.LAB 08:46
PROVIDERS: PCP Internal Medicine; Visit Provider Internal Medicine
DX: E55.9 Vitamin D deficiency, unspecified (principal); R30.0 Dysuria; R73.9 Hyperglycemia, unspecified; E78.00 Pure hypercholesterolemia, unspecified
CPT/HCPCS: 36415; 80053; 80061; 81003; 82306; 83036; 84443

== ENCOUNTER 2024-04-11 13:57 | Outpatient (AMB) | payer MEDICARE, MEDICAID, SELFPAY ==
--- NOTE | 2024-04-11 13:59 | MHC.PC.OV ---
Vital Signs 04/11/24 14:01 Height 5 ft 8 in Weight 251 lb BMI 38.2 BP 124/88 Blood Pressure Location Lt brachial Position Sitting Pulse 91 Pulse Source Pulse Oximeter Pulse Oximetry (%) 95 Oxygen Delivery Method Room Air Intake Visit Reasons: office Intake Note: Patient is here to follow up on Lab results from 12/2023. Luggage Attendant Required: No Inspector Radar And Electronics: Not Required per policy Accompanied by: Self / Same As Patient Allergies No Known Allergies [NO KNOWN ALLERGIES] Allergy (Unknown, Verified 04/11/24 15:11) UNKNOWN Medication List - Last Reconciled 04/11/24 by Sheng Tamayo MD buspirone 10 mg PO BID 30 days hydroxyzine HCl 25 - 50 mg (1 - 2 x 25 mg) PO Q8H PRN lisinopril 5 mg PO DAILY 30 days methadone 75 mg PO DAILY omeprazole 40 mg PO DAILY rivaroxaban 10 mg PO DAILY sertraline 50 mg PO DAILY 90 days Tobacco use date assessed: 04/11/24 Dental Screening Dental Screen Date: 08/15/23 HPI office HPI Details Patient comes in today for his follow up visit States that he has been seeing some blood again in his stool (in his ileostomy bag) every now and then lately States that he has been to the ER a few times for the same reason in the past but every time he goes there, he is told that all of the tests they did came out okay and the most likely explanation for the blood in his stool is his being on Xarelto and that he can try stopping it for a couple of days and then go back on it Recalls that he has been diagnosed with gastric ulcer in the past and is concerned that his bleeding may be from an ulcer He denies any abdominal pain or any nausea/vomiting lately He denies any headaches or dizziness Denies any chest pains, no increased SOB States that he will need his Buspirone Rx refilled He would also like to know if his labs done back in December 2023 came out okay [facility] Medical History History of substance abuse Obesity (BMI 30-39.9) Mixed hyperlipidemia Localized swelling of both lower legs Hepatic steatosis Parastomal hernia Hemorrhage from ileostomy On anticoagulant therapy Hx of gastric ulcer 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 His father just recently Housing: House Alcohol intake: current Alcohol intake frequency: holidays/special occasions only Patient Tobacco Use Status: Former Tobacco user e-Cigarette/Vaping Use: Never Used Second Hand Smoke Exposure: No service: No Current occupational status: disabled Cognitive needs: No Hearing needs: No Vision needs: No Questionnaire PHQ-9 Over the last 2 weeks, how often have you been bothered by any of the following problems? Depression Screening Interpretation: Negative Depression Screening Done: Yes Source: Developed by Drs. Juan Mcgrath, Christel Floyd, Darren Funez and colleagues, with an educational edd from [employer]. Thrive Questionnaire Date Thrive assessed: 08/15/23 THRIVE Score: 0 SARAHY-7 AMB Questionnaire SARAHY-7 Date SARAHY - 7 assessed: 08/15/23 Source: Developed by Drs. Juan Mcgrath, Darren Turner and colleagues, with an educational edd from [employer]. Review of Systems Const Denies chills, Denies fatigue, Denies fever(s) and Denies headache(s) ENT Denies dysphagia, Denies dizziness, Denies otalgia, Denies headache(s), Denies odynophagia and Denies sore throat Card Denies chest pain, Denies palpitations and Denies dyspnea Resp Denies cough and Denies dyspnea GI Details: (+) ostomy with a large parastomal hernia around it Denies abdominal pain, Reports hematochezia (on and off - blood is noted with his stools inside his ilesotomy bag), Denies constipation, Denies dysphagia, Denies heartburn, Reports loose stools (on and off - noted in his ostomy bag), Denies nausea, Denies odynophagia and Denies vomiting Denies dysuria, Denies nocturia and Denies urinary frequency Neuro Denies dizziness and Denies headache(s) Endo Denies fatigue and Denies palpitations Physical exam (Primary Care) Vital Signs: Last Vital Signs Pulse 91 04/11/24 14:01 BP 124/88 04/11/24 14:01 Pulse Ox 95 04/11/24 14:01 Oxygen Delivery Method Room Air 04/11/24 14:01 BMI result Body Mass Index 38.2 Tobacco/Smoking Status: Tobacco use Status Tobacco use date assessed 04/11/24 04/11/24 14:01 Patient Tobacco Use Status Former Tobacco user 04/11/24 14:01 e-Cigarette/Vaping Use Never Used 04/11/24 14:01 Depression Screening Interpretation: Negative Thrive Assessment: Date of Thrive Assessment Date Thrive assessed 08/15/23 04/11/24 14:01 Const General: no acute distress and alert Neck Neck: Yes no lymphadenopathy and Yes supple Resp Auscultation: clear to auscultation bilaterally, no rales and no wheezes Cardio Rate: regular rate Rhythm: regular rhythm Heart sounds: no murmurs GI Inspection: Yes other ((+) ostomy (bag with brown stool) and surrounding parastomal hernia) Palpation (GI): Soft to palpation and nontender Extrem General: Yes no clubbing, cyanosis or edema Results Reviewed Results Reviewed: Laboratory Tests 01/03/24 15:29 WBC 5.2 Hgb 11.6 L Hct 35.9 L Plt Count 160 Sodium 138 Potassium 4.6 Creatinine 0.94 Estimated GFR > 60 Random Glucose 89 Calcium 10.3 H D AST 25 ALT 25 Coding Level of Care Code Est Pt Level 4 (49208) Diagnoses Hirschsprung's disease Q43.1 Parastomal hernia without obstruction or gangrene K43.5 Obstruction and gangrene presence: without obstruction or gangrene Hx of gastric ulcer Z87.19 Gastroesophageal reflux disease without esophagitis K21.9 Esophagitis presence: without esophagitis Pulmonary embolism without acute cor pulmonale, unspecified chronicity, unspecified pulmonary embolism type I26.99 Pulmonary embolism type: unspecified Chronicity: unspecified Acute cor pulmonale presence: without acute cor pulmonale Mixed hyperlipidemia E78.2 Varicose veins of both lower extremities, unspecified whether complicated I83.93 Varicose vein complication: unspecified History of substance abuse F19.11 SARAHY (generalized anxiety disorder) F41.1 Obesity (BMI 30-39.9) E66.9 Assessment & Plan Assessment & Plan (1) Hirschsprung's disease: Comment: hx of Hirschsprung's s/p subtotal colectomy 2007 Code(s): Q43.1 - Hirschsprung's disease Category: Medical Plan: S/P colectomy secondary to bowel obstruction; currently has an ostomy which is working well (2) Parastomal hernia: Code(s): K43.5 - Parastomal hernia without obstruction or gangrene Category: Medical Qualifiers: Obstruction and gangrene presence: without obstruction or gangrene Qualified Code(s): K43.5 - Parastomal hernia without obstruction or gangrene Plan: Patient has been reportedly cautioned that surgical repair of this would be very risky and will only be considered if he can lose a significant amount of his current weight, which he is still struggling to do so Follow up with surgery at [facility] in [place] as scheduled (3) Hx of gastric ulcer: Comment: [place] [place](s): Z87.19 - Personal history of other diseases of the digestive system Category: Medical Plan: Continue Omeprazole 40 mg QD Patient is concerned that the blood in his stool that he sees every now and then may be due to recurrence of his gastric ulcer He recalls that his EGD in 07/[address] López revealed (+) gastric ulcer with a visible vessel that required Tx with epinephrine and cautery Repeat EGD done by Dr. Peres a few months later in 10/2017 revealed NO gastritis and NO ulcers His colonoscopy (via his colostomy up to 27 cm) done by Dr. Marcial in 10/2017 revealed (+) bleeding from the granulation tissues in the stoma that subsided when his anticoagulation was reversed - he was on Coumadin at the time Advised patient that at this time, the blood noted in his stool may be either from the granulation tissues around his stoma OR from his stomach again and the only way we will be able to determine this is for GI to see him again and possible do another EGD Will refer him back to GI for urgent consultation and evaluation (4) GERD (gastroesophageal reflux disease): Code(s): K21.9 - Gastro-esophageal reflux disease without esophagitis Category: Medical Qualifiers: Esophagitis presence: without esophagitis Qualified Code(s): K21.9 - Gastro-esophageal reflux disease without esophagitis Plan: Dietary restrictions reinforced Continue Omeprazole 40 mg QD (5) Pulmonary embolism: Code(s): I26.99 - Other pulmonary embolism without acute cor pulmonale Category: Medical Qualifiers: Pulmonary embolism type: unspecified Chronicity: unspecified Acute cor pulmonale presence: without acute cor pulmonale Qualified Code(s): I26.99 - Other pulmonary embolism without acute cor pulmonale Plan: Continue Xarelto 10 mg QD for now until GI can evaluate him further for his GI issues and possible GI bleed (6) Mixed hyperlipidemia: Code(s): E78.2 - Mixed hyperlipidemia Category: Medical Plan: Reinforced low cholesterol diet He has not had his cholesterol levels checked since last year Will send him for labs and to also recheck his fasting lipids in 4 months for follow up (7) Varicose veins of both lower extremities: Code(s): I83.93 - Asymptomatic varicose veins of bilateral lower extremities Category: Medical Qualifiers: Varicose vein complication: unspecified Qualified Code(s): I83.93 - Asymptomatic varicose veins of bilateral lower extremities Plan: Follow up with vascular surgery (Dr. Mead) as scheduled (8) History of substance abuse: Code(s): F19.11 - Other psychoactive substance abuse, in remission Category: Medical Plan: In remission Continue Methadone 75 mg QD Follow up with the Methadone clinic as scheduled (9) SARAHY (generalized anxiety disorder): Code(s): F41.1 - Generalized anxiety disorder Category: Medical Plan: Continue Buspirone 10 mg BID (Rx refilled), Sertraline 50 mg QD and Hydroxyzine 25 mg 1 to 2 tablets TID PRN (10) Obesity (BMI 30-39.9): Code(s): E66.9 - Obesity, unspecified Category: Medical Plan: Reinforced diet/exercise as tolerated/lose weight Plan Follow up in 4 months Orders: Orders Lipid Panel 4 Months E78.00 - Pure hypercholesterolemia, unspecified Comprehensive Hydes. Panel Fast 4 Months E78.00 - Pure hypercholesterolemia, unspecified TSH reflex Free T4 4 Months E78.00 - Pure hypercholesterolemia, unspecified UA CC w/rflx Micro + Cult 4 Months R30.0 - Dysuria Complete Blood Count Auto Diff 4 Months D64.9 - Anemia, unspecified Vitamin D 25-OH Total 4 Months E55.9 - Vitamin D deficiency, unspecified Vitamin B12 and Folate 4 Months E53.8 - Deficiency of other specified B group vitamins Referrals Gastroenterology Referral K92.1 - Melena, Q43.1 - Hirschsprung's disease, Z87.19 - Personal history of other diseases of the digestive system, Z93.2 - Ileostomy status Medications: Refilled buspirone 10 mg PO BID 30 days 60 tabs 3RF
[2024-04-11 14:01] VITALS: BP 124/88; PULSE 91; O2SAT 95; BMI 38.2
== END 2024-04-11 14:45 | disposition home or self-care (01) ==
PROVIDERS: PCP Internal Medicine; Visit Provider Internal Medicine
DX: I26.99 Other pulmonary embolism without acute cor pulmonale (principal); F19.11 Other psychoactive substance abuse, in remission; E66.812 Obesity, class 2; Z68.38 Body mass index [BMI] 38.0-38.9, adult; Q43.1 Hirschsprung's disease; K43.5 Parastomal hernia without obstruction or gangrene; Z87.19 Personal history of other diseases of the digestive system; K21.9 Gastro-esophageal reflux disease without esophagitis; E78.2 Mixed hyperlipidemia; I83.93 Asymptomatic varicose veins of bilateral lower extremities; F41.1 Generalized anxiety disorder

== ENCOUNTER → 2024-04-11 13:57 | Outpatient (BNVA) | payer MEDICARE, MEDICAID, SELFPAY | PROVIDERS: PCP Internal Medicine; Visit Provider Internal Medicine | DX: Q43.1 Hirschsprung's disease (principal); K43.5 Parastomal hernia without obstruction or gangrene; K21.9 Gastro-esophageal reflux disease without esophagitis; I26.99 Other pulmonary embolism without acute cor pulmonale; Z87.19 Personal history of other diseases of the digestive system; E78.2 Mixed hyperlipidemia; I83.91 Asymptomatic varicose veins of right lower extremity; F19.11 Other psychoactive substance abuse, in remission; F41.1 Generalized anxiety disorder; E66.9 Obesity, unspecified | CPT/HCPCS: 99212 ==

== ENCOUNTER 2024-07-12 22:46 | Emergency (ER) | payer MEDICARE, MEDICAID, SELFPAY ==
--- NOTE | ~2024-07-12 | CT_ITS ---
CLINICAL HISTORY: blood output through colostomy CT abdomen and pelvis with contrast Comparison: CT - CT ABDOMEN PELVIS W IV CON - 11/01/22 14:51 EDT Findings: No consolidation or effusion. Gallstones are identified within the gallbladder lumen. No CT evidence for acute cholecystitis. The liver and spleen are enlarged. The liver appears normal in contour. The solid organs are otherwise within normal limits. No hydronephrosis or left hydroureter. Right hydroureter redemonstrated, unchanged. No bowel obstruction, pneumoperitoneum, or pneumatosis. An ostomy is in place at the right abdominal wall with a large parastomal hernia containing fat and multiple loops of nondilated bowel. There appears to be interval development of mild bowel wall thickening involving small bowel loops within the hernia sac, best visualized on sagittal image number 123 of series 8. Mild edematous changes are identified within the hernia sac. The rectal stump is unremarkable in appearance. Pelvic contents unremarkable. The bladder is minimally distended with fluid, limiting its evaluation. Diffuse bladder wall thickening present. A tiny amount of fat is identified within the bilateral inguinal canals. Nonvisualization of the appendix. The appendix may be surgically absent. No acute fracture visualized. Nonspecific sclerotic focus redemonstrated within the L5 vertebral body, unchanged. Posterior disc osteophyte complex present at L1-L2 with associated central canal stenosis at this level. IMPRESSION: 1. No acute inflammatory process identified within the abdomen or pelvis. 2. Right-sided ostomy redemonstrated with a large parastomal hernia containing fat and multiple loops of nondilated bowel. There appears to be interval development of mild bowel wall thickening and mild edematous changes within the hernia sac which may represent a nonspecific enteritis or sequela of strangulation. No bowel obstruction. 3. Hepatosplenomegaly. 4. Nonspecific bladder wall thickening. The bladder is underdistended. Recommend clinical correlation with urinalysis results to evaluate for underlying cystitis. 5. Cholelithiasis. No CT evidence for acute cholecystitis. This document has been electronically signed by: Remberto Lima MD on 07/13/2024 04:39:28
[2024-07-12 23:08] VITALS: BP 139/78; PULSE 100; O2SAT 95
[2024-07-12 23:14] VITALS: BP 142/105; PULSE 93; RESP 20; TEMP 36.2; O2SAT 94; BMI 33.9
[2024-07-12 23:44] LABS: MANUAL DIFF FLAG NO
[2024-07-12 23:49] LABS: Basophils Percent Auto 0.3 % (0-2); Eosinophils Percent Auto 0.6 % (0-4); Hematocrit 34.6 % (42.0-52.0); Hemoglobin 11.3 g/dl (14.0-18.0); Imm Gran Abs Auto 0.03 X10*3/uL (0.00-0.03); Imm Gran Pct Auto 0.5 % (0.0-0.4); Lymphocytes Absolute Auto 0.7 X10*3/uL (1.2-4.9); Lymphocytes Percent Auto 11.1 % (20-40); Mean Corpuscular HGB Conc 32.7 g/dl (31.0-36.0); Mean Corpuscular Hemoglobin 25.9 pg (27.0-33.0); Mean Corpuscular Volume 79.2 fL (80.0-98.0); Mean Platelet Volume 10.5 fL (9.4-12.4); Monocytes Absolute Auto 0.3 X10*3/uL (0.1-1.2); Monocytes Percent Auto 4.7 % (2-11); Neutrophils Absolute Auto 5.5 x10*3/uL (2.0-8.3); Neutrophils Percent Auto 82.8 % (45-73); Platelet Count 175 X10*3/uL (160-400); Red Blood Count 4.37 X10*6/uL (4.60-5.80); Red Cell Distribution Width 15.2 % (11.0-16.0); White Blood Count 6.6 X10*3/uL (4.8-10.8)
[2024-07-12 23:56] LABS: INTERNATIONAL NORM RATIO 1.1 (0.9-1.1); Prothrombin Time 12.6 SEC (10.9-12.4)
[2024-07-13 00:03] LABS: Alanine Aminotransferase 25 U/L (0-40); Albumin Level 4.2 g/dL (3.5-5.0); Alkaline Phosphatase 76 U/L (39-117); Anion Gap 12 (12-20); Aspartate Amino Transferase 27 U/L (5-37); Bilirubin Direct 0.1 mg/dL (0.0-0.5); Bilirubin Total 0.4 mg/dL (0.0-1.0); Blood Urea Nitrogen 15 mg/dL (9-16); Calcium 9.8 mg/dL (8.4-10.2); Carbon Dioxide 24 mmol/L (22-29); Chloride 107 mmol/L (96-108); Creatinine Clr Calc Pharmacy 151.3; Estimated Glomerular Filt Rate > 60; Glucose Random 176 mg/dL (60-115); Lipase 35 U/L (8-78); Potassium 4.2 mmol/L (3.3-5.1); Sodium 139 mmol/L (135-145); Total Protein 7.4 g/dL (6.5-8.0)
[2024-07-13 02:44] VITALS: BP 133/80; PULSE 90; RESP 18; TEMP 37.2; O2SAT 100
--- NOTE | 2024-07-13 03:31 | PC.NURSE ---
stool sample collect and urine sent. IV placed for CT Scan
[2024-07-13 03:36] LABS: OBS Int Ctl Valid YES; OBS1 POSITIVE (NEGATIVE)
[2024-07-13 03:38] LABS: Appearance Urine Clear; Color Urine Yellow; Glucose Urine UA Negative (Negative); Leukocyte Esterase Urine Negative (Negative); Nitrite Urine Negative (Negative); Specific Gravity - Urine >= 1.030 (1.005-1.025); Urine Blood Negative (Negative); Urine Ketones Negative (Negative); Urine Protein Trace mg/dL (Neg-Trace)
[2024-07-13 03:39] LABS: Bacteria Urine None Seen (None Seen); Hyaline Casts Urine 0-2 /LPF (0-2); RBC Urine 0-2 /HPF (0-2); Squamous Epithelial Cell Urine 0-2 /HPF (0-2); WBC Urine 0-5 /HPF (0-5)
[2024-07-13] MEDS: iohexoL 350 MG/ML 100 ML INFUS..BTL IV (03:41)
--- NOTE | 2024-07-13 04:50 | PC.NURSE ---
pt resting comfortably, states that the pain is gone, informed about pending studies
--- NOTE | 2024-07-13 06:17 | PC.NURSE ---
Numbers to [phone], to confirm Methadone dose, left message will pass on to on coming nurse we need does confirmation.
[2024-07-13 06:26] VITALS: BP 138/83; PULSE 80; RESP 16; TEMP 36.8; O2SAT 95
--- NOTE | 2024-07-13 06:53 | PC.NURSE ---
Methadone does confirm, By Mirvista, dose is 95mg, take 27 bottles home on 06/25 expected to return them at 07/23 for refills
--- NOTE | 2024-07-13 07:59 | ED.ABDPAIN ---
HPI - Abdominal Pain General Chief Complaint: Abdominal Pain Stated Complaint: RLQ pain Time Seen by Provider: 07/13/24 02:54 Source: patient Mode of arrival: ambulatory Limitations: no limitations History of Present Illness ED Provider: Dr. Malena King HPI narrative: Patient comes to the emergency room complaining of right lower quadrant abdominal pain. Patient states it started about 3 hours ago. Patient also states that chronically he has been having bleeding from his ostomy site. Patient states that the abdominal pain was very intense a few hours ago. By the time I saw the patient, patient states that his abdominal pain nearly resolved. Related Data Home Medications ?Medication ?Instructions ?Recorded ?Confirmed methadone 10 mg/mL oral concentrate 75 mg PO DAILY 09/23/21 07/07/24 Previous Rx's ?Medication ?Instructions ?Recorded hydroxyzine HCl 25 mg tablet 25 - 50 mg (1 - 2 x 25 mg) PO Q8H 01/03/23 PRN for anxiety #90 tabs rivaroxaban 10 mg tablet 10 mg PO DAILY #90 tabs 04/25/24 buspirone 10 mg tablet 10 mg PO BID 30 days #60 tabs 05/12/24 lisinopril 5 mg tablet 5 mg PO DAILY 30 days #30 tabs 05/12/24 sertraline 50 mg tablet 50 mg PO DAILY 90 days #90 tabs 06/23/24 omeprazole 40 mg capsule,delayed 40 mg PO DAILY #90 caps 06/27/24 release ferrous sulfate 325 mg (65 mg 325 mg PO DAILY #90 tabs 07/07/24 iron) tablet Allergies Allergy/AdvReac Type Severity Reaction Status Date / Time No Known Allergies Allergy Unknown UNKNOWN Verified 07/12/24 23:18 [NO KNOWN ALLERGIES] Review of Systems Review of Systems Constitutional : No Weight loss, No Fever, No Chills, No Night Sweats, No Fatigue, No Malaise ENT/Mouth : No Hearing loss, No Ear Pain, No Nasal Congestion, No Sinus Pain, No Hoarseness, No sore throat, No Rhinorrhea, No Swallowing Difficulty Eyes: No Eye Pain, No Swelling, No Redness, No Foreign Body, No Discharge, No Vision Changes Cardiovascular : No Chest Pain, No SOB, No Dyspnea on Exertion, No Orthopnea, No Edema, No Palpitations Respiratory : No Cough, No Sputum, No Wheezing, No Smoke Exposure, No Dyspnea Gastrointestinal : No Nausea, No Vomiting, complaining of chronic GI bleed, feeling the colostomy bag up to retirement through with bloody discharge. No abdominal Pain, No Hematochezia, No Melena Genitourinary : no irregular bleeding, No Dysuria, No Urinary Frequency, No Hematuria, No Urinary Incontinence, No Urgency, No Flank Pain, No Urinary Flow Changes, No Hesitancy Musculoskeletal : No joint pain, No Myalgias, No Joint Swelling Skin : No Skin Lesions, No rash Neuro : No Weakness, No Numbness, No Paresthesias, No Loss of Consciousness, No Dizziness, No Headache Psych : No Anxiety/Panic, No Depression, No SI/HI/AH/VH, No Social Issues, Heme/Lymph: No Bruising, No Bleeding,No Lymphadenopathy Endocrine : No Polyuria, No Polydipsia, No Temperature Intolerance PMFSH Past Medical History Medical History History of substance abuse Obesity (BMI 30-39.9) Mixed hyperlipidemia Localized swelling of both lower legs Hepatic steatosis Parastomal hernia Hemorrhage from ileostomy On anticoagulant therapy Hx of gastric ulcer 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 His father just recently Housing: House Alcohol intake: current Alcohol intake frequency: holidays/special occasions only Patient Tobacco Use Status: Former Tobacco user Smoked in Last 30 Days: No e-Cigarette/Vaping Use: Never Used Second Hand Smoke Exposure: No Advance Directives: Yes Advance Directives on File: Yes Advance Directives Date on File: 11/14/22 service: No Current occupational status: disabled Cognitive needs: No Hearing needs: No Vision needs: No Physical Exam ED Vital Signs: Vital Signs - 24 hr 07/12/24 23:14 07/13/24 02:44 07/13/24 06:26 Temperature 97.2 F 99 F 98.2 F Pulse Rate 93 90 80 Respiratory Rate 20 18 16 Blood Pressure 142/105 H 133/80 138/83 Pulse Oximetry 94 100 95 Oxygen Delivery Method Room Air Room Air Room Air BMI result Body Mass Index 33.9 Const Other: Appearance: Alert. Oriented X3. No acute distress. Eyes: Pupils equal, round and reactive to light. ENT: Pharynx normal. Neck: Normal inspection. Neck supple. No lymph nodes noted. No crepitus CVS: Normal heart rate and rhythm. Pulses normal. Normal S1 and S2 Respiratory: No respiratory distress. Breath sounds normal. No Wheezing. No rales Abdomen: Soft and nontender. Patient has a large hernia in the right lower quadrant, ostomy in place, dark brown stool present. Skin: Skin warm and dry. Normal skin color. Normal skin turgor. Extremities: No lower extremity edema. No Lacerations. No Rash Neuro: Oriented X 3. No motor deficit. No sensory deficit. Moving all extremities. No slurred speech. CN 2 through 12 grossly intact Psych: calm, cooperative, normal affect Medical Decision Making Medical Decision Making MDM Narrative: Patient's H&H is stable compared to previous visits. Patient no longer having abdominal pain. Patient states that this time he is no longer having abdominal pain. Also, patient mentioned that he went to see a corporate law specialist in [facility] or [place], he was told he has not seen a surgical candidate. Patient states that he is unwilling to go to any other hospital other than here if admission will be required due to transportation issues. Also, patient states that he can not tolerate PO prep for colonoscopy if he would be needed. I discussed the patient with Dr. Schwartz from surgery, not much we can do from the surgery standpoint, GI notes from 2020 showed the patient had multiple endoscopies, none of them revealed any source of active GI bleed. It was determined that patient's bleeding is from granulation tissue from the stoma I discussed the patient also with Dr. Cohen, no need for admission. -patient is supposed to start taking Xarelto today, I discussed the above-mentioned with Dr. Fernandez who is the patient's heme/oncologist, we can go ahead and start Xarelto as scheduled, and patient can be discharged. Dr. Fernandez referred the patient to muscular surgery to see Dr. Mead, as patient may need an IV filter and eventually will be able to get off blood thinners -patient states that he already has an appointment pending with Dr. Mead Patient was given his dose of methadone here in the emergency room. Patient will be discharged home soon. Patient agreeable with plan. Differential Diagnosis Differential Diagnoses: The differential diagnosis associated with the presentation includes (As above) Admission/Observation Consideration of admission/observation: Escalation of care including admission/observation considered Consult Healthcare Provider Management of the patient was discussed with: Hospitalist and Motor Assembly Supervisor Lab Data MDM Lab Attestation statement: I reviewed the patient's lab results. 07/12/24 23:39 07/12/24 23:39 Labs: Lab Results 07/12/24 07/13/24 07/13/24 Range/Units 23:39 03:16 03:19 WBC 6.6 (4.8-10.8) X10*3/uL RBC 4.37 L (4.60-5.80) X10*6/uL Hgb 11.3 L (14.0-18.0) g/dl Hct 34.6 L (42.0-52.0) % MCV 79.2 L (80.0-98.0) fL MCH 25.9 L (27.0-33.0) pg MCHC 32.7 (31.0-36.0) g/dl RDW 15.2 (11.0-16.0) % Plt Count 175 (160-400) X10*3/uL MPV 10.5 (9.4-12.4) fL Immature Gran % (Auto) 0.5 H (0.0-0.4) % Neut % (Auto) 82.8 H (45-73) % Lymph % (Auto) 11.1 L (20-40) % [place] % (Auto) 4.7 (2-11) % Eos % (Auto) 0.6 (0-4) % Baso % (Auto) 0.3 (0-2) % Lymph # (Auto) 0.7 L (1.2-4.9) X10*3/uL [place] # (Auto) 0.3 (0.1-1.2) X10*3/uL Eos # (Auto) 0.0 (0.0-0.4) X10*3/uL Baso # (Auto) 0.0 (0.0-0.2) X10*3/uL Abs Immat Gran (auto) 0.03 (0.00-0.03) X10*3/uL Absolute Neuts (auto) 5.5 (2.0-8.3) x10*3/uL Absolute Nucleated RBC 0.000 (0.0-0.012) X10*3/uL Nucleated RBC % (auto) 0.0 (0.0-0.2) /100WBC PT 12.6 H (10.9-12.4) SEC INR 1.1 (0.9-1.1) Sodium 139 (135-145) mmol/L Potassium 4.2 (3.3-5.1) mmol/L Chloride 107 (96-108) mmol/L Carbon Dioxide 24 (22-29) mmol/L Anion Gap 12 (12-20) BUN 15 (9-16) mg/dL Creatinine 0.81 (0.5-1.4) mg/dL Estim Creat Clear Calc 151.3 Estimated GFR > 60 Random Glucose 176 H (60-115) mg/dL Calcium 9.8 (8.4-10.2) mg/dL Total Bilirubin 0.4 (0.0-1.0) mg/dL Direct Bilirubin 0.1 (0.0-0.5) mg/dL AST 27 (5-37) U/L ALT 25 (0-40) U/L Alkaline Phosphatase 76 (39-117) U/L Total Protein 7.4 (6.5-8.0) g/dL Albumin 4.2 (3.5-5.0) g/dL Lipase 35 (8-78) U/L Urine Color Yellow Urine Appearance Clear Urine pH 6.0 (5.0-9.0) Ur Specific [place] >= 1.030 H (1.005-1.025) Urine Protein Trace (Neg-Trace) mg/dL Urine Glucose (UA) Negative (Negative) mg/dL Urine Ketones Negative (Negative) mg/dL Urine Blood Negative (Negative) Urine Nitrite Negative (Negative) Ur Leukocyte Esterase Negative (Negative) Urine RBC 0-2 (0-2) /HPF Urine WBC 0-5 (0-5) /HPF Ur Squamous Epith Cells 0-2 (0-2) /HPF Urine Bacteria None Seen (None Seen) Hyaline Casts 0-2 (0-2) /LPF Stool Occult Blood POSITIVE (NEGATIVE) Independent Interpretation I performed an independent interpretation of an: CT Scan Radiology Impression Discussion of test interpretation with radiology: I have reviewed the radiologist's reading. Radiologist Impression: 1. No acute inflammatory process identified within the abdomen or pelvis. 2. Right-sided ostomy redemonstrated with a large parastomal hernia containing fat and multiple loops of nondilated bowel. There appears to be interval development of mild bowel wall thickening and mild edematous changes within the hernia sac which may represent a nonspecific enteritis or sequela of strangulation. No bowel obstruction. 3. Hepatosplenomegaly. 4. Nonspecific bladder wall thickening. The bladder is underdistended. Recommend clinical correlation with urinalysis results to evaluate for underlying cystitis. 5. Cholel[address]iasis. No CT evidence for acute cholecystitis. Medications Administered Discontinued Medications Generic Name Dose Route Start Last Admin Trade Name Freq PRN Reason Stop Dose Admin Iohexol 100 ml 07/13/24 03:40 07/13/24 03:41 Iohexol 350 Mg/Ml 100 Ml Infus..Btl IV 07/13/24 03:41 100 ml ONCE ONE Administration Critical Care Time Critical Care Time Critical Care Time: Yes Total Critical Care Time: 75 Attestation: I have personally provided critical care time. Time includes review of lab data, radiology results, discussion with consultants, and monitoring for potential decompensation. Intervention performed as documented. Discharge Plan Discharge Clinical Impression: Chronic GI bleeding Patient Disposition: Home, Self-Care Instructions: Gastrointestinal Bleeding (ED) Additional Instructions: Please restart your Xarelto today. Please follow-up with your primary care physician tomorrow. If you have any worsening or new symptoms, please return to the emergency room or call 911 Prescriptions: No Action lisinopril 5 mg tablet 5 mg PO DAILY 30 Days Qty: 30 2RF buspirone 10 mg tablet 10 mg PO BID 30 Days Qty: 60 3RF sertraline 50 mg tablet 50 mg PO DAILY 90 Days Qty: 90 1RF omeprazole 40 mg capsule,delayed release(DR/EC) 40 mg PO DAILY Qty: 90 1RF methadone 10 mg/mL concentrate 75 mg PO DAILY Rx Instructions: [facility] PHONE #'s - [phone] OR [phone] rivaroxaban 10 mg Tablet 10 mg PO DAILY Qty: 90 4RF Rx Instructions: for 35 days ferrous sulfate 325 mg (65 mg iron) Tablet 325 mg PO DAILY Qty: 90 4RF hydroxyzine HCl 25 mg tablet 25 - 50 mg PO Q8H PRN (Reason: for anxiety) Qty: 90 5RF Print Language: [place]
--- NOTE | 2024-07-13 08:28 | HE.PHANOTE ---
Methadone confirmation patient takes 95mg from [facility]. gets 27 take home bottles. will be returning 1/5 dose to clinic
[2024-07-13] MEDS: methADONE HCl 20 MG/2 ML ORAL.CONC 95 MG PO (08:37)
[2024-07-13 08:44] VITALS: BP 138/83; PULSE 80; RESP 16; TEMP 36.8; O2SAT 95
== END 2024-07-13 08:45 | disposition home or self-care (01) ==
PROVIDERS: Emergency Provider Emergency Medicine; PCP Internal Medicine
DX: K92.2 Gastrointestinal hemorrhage, unspecified (principal); R10.31 Right lower quadrant pain; R10.2 Pelvic and perineal pain; Z79.899 Other long term (current) drug therapy; Z87.891 Personal history of nicotine dependence
CPT/HCPCS: 36415; 74177; 80048; 80076; 81001; 82272; 83690; 85025; 85610; 99284; Q9967

== ENCOUNTER → 2024-07-13 03:09 | Outpatient (BNV) | payer MEDICARE, MEDICAID, SELFPAY | PROVIDERS: Emergency Provider Emergency Medicine; PCP Internal Medicine; Visit Provider Radiology Diagnostic Radiology | DX: K94.01 Colostomy hemorrhage (principal); R10.31 Right lower quadrant pain | CPT/HCPCS: 74177 ==

== ENCOUNTER 2024-08-07 10:41 | Outpatient (AMB) | payer MEDICARE, MEDICAID, SELFPAY ==
--- NOTE | 2024-08-07 10:42 | MHC.OFFVIS ---
Vital Signs 08/07/24 10:52 Height 6 ft Weight 250 lb BMI 33.9 BP 130/76 Blood Pressure Location Lt brachial Position Sitting Pulse 96 Pulse Oximetry (%) 96 Oxygen Delivery Method Room Air Intake Visit Reasons: Hemorrhage from ileostomy/ zachary 2019 Intake Note: Patient new consult for Hemorrhage from ileostomy/ zachary 2019. Patient cc: abdominal pain with bloating and acid reflex with burning sensation. Blood from ileostomy on and off. Denies any other GI issues. Complex Director Required: No Accompanied by: Family/Other Allergies No Known Allergies [NO KNOWN ALLERGIES] Allergy (Unknown, Verified 07/12/24 23:18) UNKNOWN Medication List - Last Reconciled 08/07/24 by Nicole Ramos MD buspirone 10 mg PO BID 30 days hydroxyzine HCl 25 - 50 mg (1 - 2 x 25 mg) PO Q8H PRN lisinopril 5 mg PO DAILY 30 days methadone 75 mg PO DAILY omeprazole 40 mg PO DAILY rivaroxaban 10 mg PO DAILY sertraline 50 mg PO DAILY 90 days HPI HPI Hemorrhage from ileostomy/ zachary 2019: Details: 43 for FU of abdominal pain. 07/13/24 PT was seen at [facility] ED: Patient comes to the emergency room complaining of right lower quadrant abdominal pain. Patient states it started about 3 hours ago. Patient also states that chronically he has been having bleeding from his ostomy site. Patient states that the abdominal pain was very intense a few hours ago. By the time I saw the patient, patient states that his abdominal pain nearly resolved. CHRONIC ILLNESSES: colostomy, ulcer- bleeding, depression, anxiety, pulmonary embolism, Hirschsprung's disease TODAY'S VISIT: Patient cc: abdominal pain with bloating and acid reflex with burning sensation. Blood from ileostomy on and off. Bleeding comes and goes - he will be fine for 1-2 months Then bleeding will start - it is intermittent Also gets the bad pain, weakness and dizziness Stops the Xarelto for a week and bleeding subsides in 2-3 days Resumes the Xarelto after a week. He also had abdominal pain which he attributes to constipation. Seen at surgery clinic at [facility] and was informed revision of ileostomy is not feasible due to anatomical reasons (colon is not long enough for revision) PAST VISITS: Doing OK. Hospitalized due to blood in ileostomy bag. No bleeding since he was discharged. Notes a lot of discomfort and pain at the ileostomy site attributes it to peristomal hernia which is getting bigger. Scheduled for a SBFT and cancelled it a few times due to family issues. Afraid to have it done since the barium keeps coming and he has to stay home the whole day. Had a SBFT 2-3 yrs ago before his hernia surgery. PAST VISIT: Patient was hospitalized at [facility] in 05/28 with GI Bleeding: ABDOMINAL PAIN. This started just prior to arrival and is still present. It has been intermittent and waxing/waning. It is described as pain . No radiation. It is described as located in the epigastric area and in the upper abdomen. At its maximum, severity described as moderate. When seen in the E.D., severity described as moderate. Modifying factors. Not worsened by anything. Not relieved by anything. No nausea, loss of appetite, vomiting or diarrhea. No additional abdominal pain . I havent been to the ED at all I havent had any abdominal pain. It is an ileostomy and there is a lot of liquids - comes out as diarrhea. It makes so much noise that I cannot go anywhere. Has diarrhea for a week associated with bloating and gas. Nothing helps when he has diarrhea. Has episodes when he stays in the house and does not happen when he goes out for walks. Tries not to eat much. Kept a food journal - noted diarrhea with the same diet. Can be brown or intermittently dark. I am burping and the burping is disgusting with a fecal odor for a long time Dr Marcial thinks it could have been an ulcer. A month ago, he had an episode of epigastric pain at 3:15 in the am, felt like a bubble. Took TUMS. Pain started subsiding when he reached the ER. Similar pain 5 days ago - started light. He took antacids and pain kept getting worse over time. Started at 3 am, called the ambulance at 7 am and went to the ED. Pain was 10/10 and felt like a very hot pain - not burning . Denies radiation to the back or shoulders. Pain lasted several hrs and needed pain medications. Pain lasted till noon - felt something going down and gas came out of the colostomy and pain subsided around noon. Noted nausea and denies vomiting, fever, chills, sweating. Had chicken breast with canned carrots and a little bowl of icecream for dinner the night before. Had a bowl of cereal at 1 am prior to the last episode of pain. Discharged on Omeprazole. PAST GI HISTORY BY REVIEW OF MEDICAL RECORDS: Pt was seen by Dr Marcial: He has a hx of Hirschsprung's disease and had a diverting loop transverse colostomy in 2007 for marked colon distension. He eventually had a subtotal colectomy with an end ileostomy later that year. He has been on Coumadin for over 6 years in view of PE's. He has had periodic stoma bleeding and was admitted last October for this. I had brought him to the OR to examine the stoma as the blood appeared to come from an area on the upper part of the stoma itself. there was note of what seemed to be a small blind pouch adjacent and above the actual lumen of the stoma itself. His Coumadin was held and this bleeding had stopped .He also has a large parastomal hernia. 03/2018 he underwent repair of large parastomal hernia with placement of a biological mesh by Dr. Marcial. He had recurrence parastomal hernia 6 months later LABS IN [facility] : 12/24/19 reviewed IMAGING STUDIES: 05/[address] scan showed: Postop colectomy. Right lower quadrant ileostomy. Large parastomal hernia containing multiple loops of small bowel and fat. No evidence of obstruction, bowel wall thickening or wall enhancement seen. Multiple ventral small hernias containing fat and small supraumbilical hernia containing a knuckle of small bowel. Slightly enlarged spleen. Stable focal dilatation of the right distal ureter. Bladder not optimally distended. Question diffuse bladder wall thickening. 12/24/[address] scan showed: IMPRESSION: The dilated and undulated mid and distal ureter with slightly hypodense appearing area in the right distal ureter, which appears narrowed. Underlying lesion is not excluded. Similar findings were seen on previous exam. There is no left-sided hydronephrosis. Distended bladder with normal-appearing prostate gland. No bladder wall thickening seen. Several anterior abdominal wall hernias, the largest right midabdomen containing loops of small bowel and mesentery. Likely cholelithiasis with lucent stones. Hyperdense bile opacifies the entire gallbladder. ENDOSCOPIC STUDIES: 07/[address] López showed a gastric ulcer with visible vessel which was treated with epinephrine and cautery. 10/[address] Peres showed gastritis and no ulcers. 10/24 Colonoscopy via colostomy till 27 cms was performed by Dr. Marcial showed bleeding from granulation tissue in the stoma which subsided after anticoagulation was reversed. [facility] Medical History History of substance abuse Obesity (BMI 30-39.9) Mixed hyperlipidemia Localized swelling of both lower legs Hepatic steatosis Parastomal hernia Hemorrhage from ileostomy On anticoagulant therapy Hx of gastric ulcer 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 His father just recently Housing: House Alcohol intake: current Alcohol intake frequency: holidays/special occasions only Patient Tobacco Use Status: Former Tobacco user e-Cigarette/Vaping Use: Never Used Second Hand Smoke Exposure: No Advance Directives: No Advance Directives Information Provided: Yes Advance Directives Date on File: 11/14/22 service: No Current occupational status: disabled Cognitive needs: No Hearing needs: No Vision needs: No Review of Systems Const All systems reviewed & are unremarkable except as noted in HPI and below Physical Exam Vital Signs: Last Vital Signs Pulse 96 08/07/24 10:52 BP 130/76 08/07/24 10:52 Pulse Ox 96 08/07/24 10:52 Oxygen Delivery Method Room Air 08/07/24 10:52 BMI result Body Mass Index 33.9 Const General: healthy appearing and no acute distress Nutritional Appearance: obese Orientation/consciousness: patient oriented x3 Limitations: no limitations HEENT Head: Yes normal to inspection Ears: hearing grossly normal bilaterally Eyes Sclerae: sclerae normal Pupils: Equal, round and reactive pupils present Neck Neck: Yes normal visual inspection Chest Chest palpation & inspection: normal inspection of the chest Resp Effort & Inspection: normal respiratory effort Auscultation: clear to auscultation bilaterally Cardio Palpation: normal PMI Rate: regular rate Rhythm: regular rhythm Heart sounds: S1 normal heart sound present, S2 normal heart sound present and no murmurs GI Inspection: Yes obesity, Yes visible herniation (large peristomal hernia) and Yes other (Ileostomy in RUQ) Palpation (GI): Soft to palpation, nontender and No hepatosplenomegaly present Auscultation: normal bowel sounds Rectal Exam - Male: Yes deferred Skin General skin exam: no rashes or lesions noted Neuro General: patient oriented x3, gait normal and moves all extremities Cranial nerves: Yes Equal, round and reactive pupils present Psych Appearance: grossly normal Mental Status: mental status grossly normal Assessment & Plan Assessment & Plan (1) Hirschsprung's disease: Comment: hx of Hirschsprung's s/p subtotal colectomy 2007 Code(s): Q43.1 - Hirschsprung's disease Category: Medical (2) Hx of gastric ulcer: Comment: EGD done by MD Rene--07/13/17-[facility] Code(s): Z87.19 - Personal history of other diseases of the digestive system Category: Medical (3) Parastomal hernia: Code(s): K43.5 - Parastomal hernia without obstruction or gangrene Category: Medical Qualifiers: Obstruction and gangrene presence: without obstruction or gangrene Qualified Code(s): K43.5 - Parastomal hernia without obstruction or gangrene (4) Hepatic steatosis: Code(s): K76.0 - Fatty (change of) liver, not elsewhere classified Category: Medical (5) GERD (gastroesophageal reflux disease): Code(s): K21.9 - Gastro-esophageal reflux disease without esophagitis Category: Medical Qualifiers: Esophagitis presence: without esophagitis Qualified Code(s): K21.9 - Gastro-esophageal reflux disease without esophagitis (6) Bleeding from colostomy: Code(s): K94.01 - Colostomy hemorrhage Category: Medical Plan 43 YM with a hx of Hirschsprung's disease and had a diverting loop transverse colostomy in 2007 for marked colon distension. He eventually had a subtotal colectomy with an end ileostomy later that year. Pt is on chronic anticoagulation for over 10 years because of PE's. 07/[address] López showed a gastric ulcer with visible vessel which was treated with epinephrine and cautery. 10/[address] Peres showed gastritis and no ulcers. Gilbert has had 2 episodes of upper abdominal pain associated with intake of milk products. Pain resolved after he passed some gas into his ileostomy bag. Episode of pain are likely associated with gaseous distension of parastomal hernia. Patient was advised to avoid milk products and monitor his symptoms and has not noted recurrent episodes of abdominal pain. He complains of intermittent episodes of diarrhea and feculent smelling burps suggestive of intermittent small bowel obstruction due to peristomal hernia, SIBO or small intestinal involvement with Hirschsprung disease. Patient was advised to schedule CT-enterography to determine if it is safe for him to have a capsule endoscopy. Pt was hospitalized in 05/28 with blood in the ileostoomy bag. No source of bleeding was detected on EGD. Bleeding was felt to be from granulation tissue in the ileostomy stoma. Advise re-evaluation of ielostomy stoma by General surgery. Peristomal hernia? Patient is status post repair with biologic mesh placement and developed recurrent hernia 6 months later. Pt was seen by Dr Thang Mancini at [facility] surgery clinic and was advised weight reduction prior to referral to Colorectal surgeon. 08/07/24 Blood from ileostomy on and off. Bleeding comes and goes - he will be fine for 1-2 months Pt was advised to schedule an EGD (Hx of gastric ulcer and anemia) and Ileoscopy via ileostomy stoma (bleeding from ileostomy stoma) Pt reports he is unable to take colon prep due to increase in ileostomy output causing the bag to burst. He was advised to stay on a clear liquid diet the day before his procedures. Pt would like a 2nd opinion regarding surgery at [facility] surgical clinic. Orders: Orders IRON PROFILE 08/07/24 K94.01 - Colostomy hemorrhage, Z87.19 - Personal history of other diseases of the digestive system Ferritin 08/07/24 K94.01 - Colostomy hemorrhage, Z87.19 - Personal history of other diseases of the digestive system Vitamin D 25-OH Total 08/07/24 K94.01 - Colostomy hemorrhage Complete Blood Count no Diff 08/07/24 K94.01 - Colostomy hemorrhage, Z87.19 - Personal history of other diseases of the digestive system Vitamin B12 and Folate 08/07/24 K94.01 - Colostomy hemorrhage Coding Level of Care Code New Pt Level 4 (23105) Diagnoses Hirschsprung's disease Q43.1 Hx of gastric ulcer Z87.19 Parastomal hernia without obstruction or gangrene K43.5 Obstruction and gangrene presence: without obstruction or gangrene Hepatic steatosis K76.0 Gastroesophageal reflux disease without esophagitis K21.9 Esophagitis presence: without esophagitis Bleeding from colostomy K94.01 Time Spent (min) 26
[2024-08-07 10:52] VITALS: BP 130/76; PULSE 96; O2SAT 96; BMI 33.9
--- OUTSIDE RECORDS SUMMARY | 2024-08-07 14:20 | XMS_ITS | Referral Summary ---
Author Organization [facility] Address [address] [id number] Care Team Providers Care Medical Coding Specialist Name Role Phone Sheng Tamayo Primary Care Provider [phone] Allergies No known active allergies Medications sertraline (ZOLOFT) 50 mg tablet Take 50 mg by mouth once a day. 10/31/2021 Active Xarelto 20 mg tablet Take 20 mg by mouth once a day. 10/10/2021 Active hydrOXYzine HCL (ATARAX) 25 mg tablet Take 25-50 mg by mouth every 8 hours as needed. 09/23/2021 Active busPIRone (BUSPAR) 10 mg tablet Take 10 mg by mouth 2 times a day. 11/03/2021 Active omeprazole (PriLOSEC) 40 mg capsule Take 40 mg by mouth once a day. 09/23/2021 Active losartan-hydroch lorothiazide (HYZAAR) 100-25 mg per tablet Take 1 tablet by mouth once a day. Active Active Problems Problem Noted Date Diagnosed Date Parastomal hernia without obstruction or gangren e 11/17/2021 Social History Tobacco Use Types Packs/Day Years Used Date Smoking Tobacco: Former Smokeless Tobacco: Never Tobacco Cessation:Counseling Given: Not Answered Sex and Gender Information Value Date Recorded Sex Assigned at Not on file Legal Sex Male 3:17 PM EDT Gender Identity Not on file Sexual Orientation Not on file Last Filed Vital Signs Vital Sign Reading Time Taken Comments Blood Pressure 134/79 12/08/2022 1:53 PM EDT Pulse 85 12/08/2022 1:53 PM EDT Temperature 35.9 ??C (96.6 ??F) 04/07/2022 1:03 PM ED T Respiratory Rate - - Oxygen Saturation - - Inhaled Oxygen Concentration - - Weight 111 kg (244 lb 11.4 oz) 12/08/2022 1:53 P M EDT Height 170.2 cm (5' 7 ) 12/08/2022 1:53 PM EDT Body Mass Index 38.33 12/08/2022 1:53 PM EDT Plan of Treatment Not on file Insurance MEDICARE [facility] Care Teams Medical Coding Specialist Relationship Specialty Start Date End Date Sheng Tamayo [address] [place] [id number] PCP - General Internal Medicine 10/18/21
--- OUTSIDE RECORDS SUMMARY | 2024-08-07 14:20 | XMS_ITS | Clinical Summary ---
Author Organization [facility] Address [address] [id number] Care Team Providers Care Database Management System Specialist Name Role Phone Sheng Tamayo Primary Care Provider [phone] Allergies No known active allergies Medications sertraline [...] 12/08/2022 1:53 PM EDT Plan of Treatment Health Maintenance Due Date Last Done Comments HIV Screening 1979 Hepatitis C Screening 1979 Varicella Vaccines (1 of 2 - 13+ 2-dose series) 12/20/1992 Hepatitis B Vaccines (1 of 3 - 19+ 3-dose series) 12/20/1998 DTaP,Tdap,and Td Vaccines (1 - Tdap) 12/20/2001 COVID-19 Vaccine (2023- season) 2024 04/27/2022, 01/02/2022, 05/13/2021, Additional history exists Influenza Vaccine (#1) 2024 06/18/2022 Alcohol/Substance Use Screening 07/09/2024 Depression Screening and Follow-Up 07/09/2024 Stremor Drivers of Health Annual Screening 07/09/2024 RSV Vaccine (60+ years old and patients) (1 - 1-dose 75+ series) 12/20/2054 Pneumococcal Vaccine: Pediatric (0-5 Years) and At-Risk Patients (6-64 Years) Aged Out No longer eligible based on patient's age to complete this topic Insurance MEDICARE [facility] Care Teams Database Management System Specialist Relationship Specialty Start Date End Date Sheng Tamayo [address] [place] [address] [place] [address] PCP - General Internal Medicine 10/18/21
== END 2024-08-07 11:51 | disposition home or self-care (01) ==
PROVIDERS: PCP Internal Medicine; Visit Provider Internal Medicine Gastroenterology
DX: Q43.1 Hirschsprung's disease (principal); Z87.19 Personal history of other diseases of the digestive system; K43.5 Parastomal hernia without obstruction or gangrene; K76.0 Fatty (change of) liver, not elsewhere classified; K21.9 Gastro-esophageal reflux disease without esophagitis; K94.01 Colostomy hemorrhage
CPT/HCPCS: 99204

== ENCOUNTER → 2024-08-07 10:41 | Outpatient (BNVA) | payer MEDICARE, MEDICAID, SELFPAY | PROVIDERS: PCP Internal Medicine; Visit Provider Internal Medicine Gastroenterology | DX: K94.01 Colostomy hemorrhage (principal); R10.31 Right lower quadrant pain; Q43.1 Hirschsprung's disease; K43.5 Parastomal hernia without obstruction or gangrene; K76.0 Fatty (change of) liver, not elsewhere classified; K21.9 Gastro-esophageal reflux disease without esophagitis; Z87.19 Personal history of other diseases of the digestive system | CPT/HCPCS: 99202 ==

== ENCOUNTER 2024-08-11 07:13 | Day surgery (SDC) | payer MEDICARE, MEDICAID, SELFPAY ==
--- NOTE | 2024-08-11 07:33 | MHC.SHP ---
Pre-Procedural Eval Section A - 24 Hr Update-Section A only Date of Service: 08/11/24 The patient is an INPATIENT: No Changes since office visit: Yes Patient answered all questions; No Cold of Flu in the past 2 weeks, No New Medical Problems and No Changes in Medication The patient has been examined within 24 hours of the surgical procedure. The History & Physical has been completed within 30 days and I have reviewed it.: Yes Section B - Complete if H&P > 30 days Chief Complaint: anemia, bleeding from ileostomy Relevant Social History: Tobacco Use (Former smoker) Present Medications: see Short Stay Collaborative assessment Allergies: Allergies Allergy/AdvReac Type Severity Reaction Status Date / Time No Known Allergies Allergy Unknown UNKNOWN Verified 07/12/24 23:18 [NO KNOWN ALLERGIES] Plan Diagnosis/Plan: Unchanged I have reviewed the history and physical and performed a pertinent physical examination on my patient. No changes have occurred unless specified. Time Spent With Patient Time: Total time managing care of this patient today ____ minutes.
[2024-08-11 08:02] VITALS: BP 141/84; PULSE 88; RESP 14; TEMP 36.9; O2SAT 96; BMI 34.3
[2024-08-11] MEDS: Lactated Ringers 1,000 ML 100 ML IVCONT (08:10)
--- NOTE | 2024-08-11 08:17 | HO.ANESPROP2 ---
[facility] Active Problems Active Problems: All Active Problems Bleeding from colostomy (Acute) Blood in stool (Acute) Annual physical exam (Acute) Dizziness (Acute) Pulmonary embolism (Acute) History of substance abuse (Acute) Obesity (BMI 30-39.9) (Acute) Mixed hyperlipidemia (Acute) Varicose veins of left lower extremity with inflammation (Acute) Varicose veins of both lower extremities (Acute) Excessive cerumen in both ear canals (Acute) GERD (gastroesophageal reflux disease) (Acute) SARAHY (generalized anxiety disorder) (Acute) Localized swelling of both lower legs (Acute) Hirschsprung's disease (Acute) Hx of gastric ulcer (Acute) Ileostomy in place (Acute) Pulmonary embolism (Acute) Hepatic steatosis (Acute) Parastomal hernia (Acute) Hemorrhage from ileostomy (Acute) On anticoagulant therapy (Acute) Past Medical History Medical History History of substance abuse Obesity (BMI 30-39.9) Mixed hyperlipidemia Localized swelling of both lower legs Hepatic steatosis Parastomal hernia Hemorrhage from ileostomy On anticoagulant therapy Hx of gastric ulcer Ileostomy in place Hirschsprung's disease Pulmonary embolism Functional capacity: independent ambulation Family History Family History Father Leukemia Mother HTN (hypertension) Diabetes type 2, controlled Sister Lupus Other Mental health disorder Family history of problems with anesthesia: No Surgical History Surgical History History of colonoscopy Hx of endoscopy Hx of esophagogastroduodenoscopy Status post repair of ventral hernia History of Problems with Anesthesia: No Social History Social History Household Members: Family Household Members Other:: Lives with his mother. His father just recently Housing: House Are you a primary animal care specialist to a significant other at home: No Do you presently have visiting nurse or other home services: No Alcohol intake: current Alcohol intake frequency: holidays/special occasions only Patient Tobacco Use Status: Former Tobacco user e-Cigarette/Vaping Use: Never Used Second Hand Smoke Exposure: No Use of substances other than those prescribed or required for medical reasons: No Have you been hit, kicked, punched, or otherwise hurt by someone within the past year? If so, by whom?: No Are you DNR?: No Advance Directives: No Advance Directives Information Provided: Yes Advance Directives Date on File: 11/14/22 Recently lost weight without trying: No How much weight loss: 2-13 pounds Eating poorly because of decreased appetite: No Nutrition screen score: 1 Nutrition Risks: No Nutritional Risk Poor oral hygiene: No service: No Current occupational status: disabled Cognitive needs: No Hearing needs: No Vision needs: No Meds Allergies Allergy/AdvReac Type Severity Reaction Status Date / Time No Known Allergies Allergy Unknown UNKNOWN Verified 07/12/24 23:18 [NO KNOWN ALLERGIES] Active Medications: Current Medications Lactated Ringer's (Lr) 1,000 mls @ 100 mls/hr IVCONT .Q10H JUAN F Last Admin: 08/11/24 08:10 Dose: 100 mls/hr Home Medications ?Medication ?Instructions ?Recorded ?Confirmed ?Last Taken ?Type methadone 10 mg/mL oral concentrate 75 mg PO DAILY 09/23/21 08/07/24 Unknown History Exam Height,Weight and Vital Signs: Height 6 ft Weight 114.759 kg Last Vital Signs Temp 98.5 F 08/11/24 08:02 Pulse 88 08/11/24 08:02 Resp 14 08/11/24 08:02 BP 141/84 H 08/11/24 08:02 Pulse Ox 96 08/11/24 08:02 O2 Del Method Room Air 08/11/24 08:02 Airway Mallampati Class: III TM Dist: >3cm Neck ROM: Full Denture: Upper and Lower Heart: RRR Lungs: cTa Assessment and Plan Assessment Anesthesia Assessment: Anesthesia Plan Discussed and Chart Reviewed Final Anesthetic Review Family History of Problems with Anesthesia: No History of Problems with Anesthesia: No NPO: Yes ASA Class: III Final Preanesthetic Review: Meds/Allgs Chart Reviewed, Consent Obtained/Reviewed and Anes Risks/Benef Reviewed Patient Risk: Intermediate Procedure Risk: Low Anesthetic Plan Anesthetic Plan: MAC: Disposition: Standard PACU
--- NOTE | 2024-08-11 09:26 | W.PM.OPN ---
Operative Note Operative Note Date of Service: 08/11/24 Narrative: FLEXIBLE TRANSORAL UPPER GASTROINTESTINAL ENDOSCOPY WITH BIOPSIES AND ILEOSCOPY VIA STOMA TO 25 CMS WITH BIOPSIES Pre-op diagnosis: Anemia, hx of gastric ulcer, bleeding from ileostomy stoma Pt has a hx of Hirschsprung's disease and had a diverting loop transverse colostomy in 2007 for marked colon distension. He eventually had a subtotal colectomy with an end ileostomy later that year. Post-op diagnosis: Gastritis, small bowel ulcer, granulation tissue at ileostomy stoma Endoscopist:? Nicole Ramos MD Anesthesia:?MAC UPPER ENDOSCOPY Consent: Indications for the procedure and potential complications of bleeding, perforation, reaction to medications and missed diagnosis were discussed with the patient and informed consent was obtained. Instrument: Olympus GIF H 190 mid size upper endoscope Monitoring: Vital signs and clinical assessment, continuous EKG monitoring, Pulse oximetry, Carbon Dioxide monitoring and blood pressure monitoring were done throughout the procedure. Procedure: The patient was placed in the left lateral decubitis position and pre-procedure medications were administered and a bite block was placed. The endoscope was inserted into the mouth and advanced under direct vision to the third part of duodenum. A careful inspection was made as the upper endoscope was withdrawn including a retroflexed examination of the proximal stomach; Findings and interventions are described below. Findings: Larynx: Normal Esophagus: GE junction at 42 cms. A single 1.5 cms tongue of suspected [place]'s - biopsied. Stomach: Moderate diffuse gastric erythema - biopsies were obtained from the gastric body and antrum. Grade 2 flap valve on retroflexed examination of the cardia. Duodenum: Normal bulb and descending duodenum Intervention: Biopsies as noted above ILEOSCOPY PROCEDURE NOTE Instrument: Olympus GIF H 190 mid size upper endoscope Monitoring: Vital signs and clinical assessment, intermittent blood pressure monitoring, continuous EKG monitoring, Pulse oximetry and Carbon Dioxide monitoring were done throughout the procedure. Please see anesthesia flowsheet. Procedure: The patient was placed in the left lateral decubitis position and pre-procedure medications were administered. After a digital rectal examination of the ileostomy stoma, the video upper endoscope was inserted into the stoma and advanced to 25 cms. The upper endoscope was slowly withdrawn in a retrograde panoramic fashion and the colon mucosa was carefully examined. Findings and interventions are described below. Findings: Ileostomy Stoma: Granulation tissue at ileostomy stoma Distal Ileum: A 1.5 cms non-bleeding superficial ulcer at 25 cms - biopsies were obtained from the edge of the ulcer Preparation: Good after some irrigation. Impression and Post Procedure Diagnosis: Endoscopy Findings: ESOPHAGUS: A single 1.5 cms tongue of suspected [place]'s - biopsied. STOMACH: Moderate gastritis DUODENUM: Normal Ileoscopy Findings: Granulation tissue at ileostomy stoma - likely source for bleeding into ileostomy bag. A 1.5 cms non-bleeding superficial ulcer at 25 cms Plan: Pt has a FU appointment on 09/11/[address] Ramos Repeat colon is not indicated since pt has a hx of Hirschsprung's disease and had a diverting loop transverse colostomy in 2007 for marked colon distension. He eventually had a subtotal colectomy with an end ileostomy later that year. Above findings were reviewed with the patient and relevant handouts were given and the discharge area. Surgical evaluation of ileostomy stoma if pt continues to have bleeding. BIOPSIES SHOWED: A. Stomach, antrum, biopsy: - Gastric antral mucosa within normal limits; negative for Helicobacter pylori, intestinal metaplasia and dysplasia. - Detached fragment of unremarkable small bowel mucosa. B. Stomach, body, biopsy: Gastric body mucosa within normal limits; negative for Helicobacter pylori, intestinal metaplasia and dysplasia. C. Gastroesophageal junction, biopsy: Squamocolumnar junctional mucosa with mild chronic inflammation; negative for intestinal metaplasia and dysplasia. D. Small polyp, ulcer, biopsy: Small bowel mucosa within normal limits; preserved villous architecture and no increase in intraepithelial lymphocytes seen.
[2024-08-11 09:28] VITALS: BP 132/66; PULSE 83; RESP 16; TEMP 37.2; O2SAT 94
[2024-08-11 09:45] VITALS: BP 124/61; PULSE 76; RESP 17; TEMP 36.7; O2SAT 96
--- NOTE | 2024-08-11 10:42 | HO.POSTANES ---
Post Anesthesia Evaluation Post Anesthesia Evaluation Date of Service: 08/11/24 Vital Signs: Vital Signs Temp Pulse Resp BP Pulse Ox O2 Del Method 08/11/24 09:45 98.0 F 76 17 124/61 96 Room Air 08/11/24 09:28 98.9 F 83 16 132/66 94 Room Air 08/11/24 08:02 98.5 F 88 14 141/84 H 96 Room Air Anesthesia: Monitored Mental Status: Awake Pain Control: Satisfactory Nausea/Vomiting: None Hydration: Adequate Anesthesia-Related Issues: No Anes. Related Issues
== END 2024-08-11 10:26 | disposition home or self-care (01) ==
PROVIDERS: PCP Internal Medicine; Visit Provider Internal Medicine Gastroenterology
PROC: 0DJ08ZZ Inspection of Upper Intestinal Tract, Via Natural or Artificial Opening Endoscopic (ICD-10-PCS; CPT 43235; principal; 2024-08-11 08:30)
DX: K94.11 Enterostomy hemorrhage (principal); Y83.2 Surgical operation with anastomosis, bypass or graft as the cause of abnormal reaction of the patient, or of later complication, without mention of misadventure at the time of the procedure; D64.9 Anemia, unspecified; Q43.1 Hirschsprung's disease; K43.5 Parastomal hernia without obstruction or gangrene; K21.9 Gastro-esophageal reflux disease without esophagitis; F11.20 Opioid dependence, uncomplicated; Z86.711 Personal history of pulmonary embolism; Z87.19 Personal history of other diseases of the digestive system; Z79.01 Long term (current) use of anticoagulants; Z79.899 Other long term (current) drug therapy
CPT/HCPCS: 44382; 43239; 88305; 88313; 88342; J2003; J2704

== ENCOUNTER → 2024-08-11 07:13 | Outpatient (BNV) | payer MEDICARE, MEDICAID, SELFPAY | PROVIDERS: PCP Internal Medicine; Visit Provider Internal Medicine Gastroenterology | DX: Q43.1 Hirschsprung's disease (principal); Z90.49 Acquired absence of other specified parts of digestive tract; K63.3 Ulcer of intestine; K21.9 Gastro-esophageal reflux disease without esophagitis; K29.70 Gastritis, unspecified, without bleeding; D64.9 Anemia, unspecified | CPT/HCPCS: 43239; 44382 ==

== ENCOUNTER 2024-09-11 10:58 | Outpatient (AMB) | payer MEDICARE, MEDICAID, SELFPAY ==
--- NOTE | 2024-09-11 11:17 | MHC.OFFVIS ---
Vital Signs 09/11/24 11:19 Height 6 ft Weight 261 lb BMI 35.4 BP 134/67 Blood Pressure Location Lt brachial Position Sitting Pulse 83 Oxygen Delivery Method Room Air Oxygen Flow Rate 96 Intake Visit Reasons: 4 wk Intake Note: Patient follow up for EGD result. Patient denies any GI issues. Measurement Superintendent Required: No Accompanied by: Self / Same As Patient Allergies No Known Allergies [NO KNOWN ALLERGIES] Allergy (Unknown, Verified 09/11/24 11:17) UNKNOWN Medication List - Last Reconciled 09/11/24 by Nicole Ramos MD buspirone 10 mg PO BID 30 days hydroxyzine HCl 25 - 50 mg (1 - 2 x 25 mg) PO Q8H PRN lisinopril 5 mg PO DAILY 30 days methadone 75 mg PO DAILY omeprazole 40 mg PO DAILY rivaroxaban 10 mg PO DAILY sertraline 50 mg PO DAILY 90 days HPI HPI 4 wk: Details: 43 for FU of abdominal pain. 07/13/24 PT was seen at [facility] ED: Patient comes to the emergency room complaining of right lower quadrant abdominal pain. Patient states it started about 3 hours ago. Patient also states that chronically he has been having bleeding from his ostomy site. Patient states that the abdominal pain was very intense a few hours ago. By the time I saw the patient, patient states that his abdominal pain nearly resolved. CHRONIC ILLNESSES: colostomy, ulcer- bleeding, depression, anxiety, pulmonary embolism, Hirschsprung's disease TODAY'S VISIT: Patient cc: abdominal pain with bloating and acid reflex with burning sensation. EGD results reviewed - noted some bleeding from the ileostomy stoma which subsided after 1 day (likely bleeding from bx sites) Blood from ileostomy on and off. Bleeding comes and goes - he will be fine for 1-2 months Then bleeding will start - it is intermittent Also gets the bad pain, weakness and dizziness Stops the Xarelto for a week and bleeding subsides in 2-3 days Resumes the Xarelto after a week. He also had abdominal pain which he attributes to constipation. Seen at surgery clinic at [facility] and was informed revision of ileostomy is not feasible due to anatomical reasons (colon is not long enough for revision) Surgical consult note was reviewed and scanned into his electronic chart. He was advised to loose weight prior to re-evaluation for surgery PAST VISITS: Doing OK. Hospitalized due to blood in ileostomy bag. No bleeding since he was discharged. Notes a lot of discomfort and pain at the ileostomy site attributes it to peristomal hernia which is getting bigger. Scheduled for a SBFT and cancelled it a few times due to family issues. Afraid to have it done since the barium keeps coming and he has to stay home the whole day. Had a SBFT 2-3 yrs ago before his hernia surgery. Pt reports he is unable to take colon prep due to increase in ileostomy output causing the bag to burst. He was advised to stay on a clear liquid diet the day before his procedures. PAST VISIT: Patient was hospitalized at [facility] in 05/28 with GI Bleeding: ABDOMINAL PAIN. This started just prior to arrival and is still present. It has been intermittent and waxing/waning. It is described as pain . No radiation. It is described as located in the epigastric area and in the upper abdomen. At its maximum, severity described as moderate. When seen in the E.D., severity described as moderate. Modifying factors. Not worsened by anything. Not relieved by anything. No nausea, loss of appetite, vomiting or diarrhea. No additional abdominal pain . I havent been to the ED at all I havent had any abdominal pain. It is an ileostomy and there is a lot of liquids - comes out as diarrhea. It makes so much noise that I cannot go anywhere. Has diarrhea for a week associated with bloating and gas. Nothing helps when he has diarrhea. Has episodes when he stays in the house and does not happen when he goes out for walks. Tries not to eat much. Kept a food journal - noted diarrhea with the same diet. Can be brown or intermittently dark. I am burping and the burping is disgusting with a fecal odor for a long time Dr Marcial thinks it could have been an ulcer. A month ago, he had an episode of epigastric pain at 3:15 in the am, felt like a bubble. Took TUMS. Pain started subsiding when he reached the ER. Similar pain 5 days ago - started light. He took antacids and pain kept getting worse over time. Started at 3 am, called the ambulance at 7 am and went to the ED. Pain was 10/10 and felt like a very hot pain - not burning . Denies radiation to the back or shoulders. Pain lasted several hrs and needed pain medications. Pain lasted till noon - felt something going down and gas came out of the colostomy and pain subsided around noon. Noted nausea and denies vomiting, fever, chills, sweating. Had chicken breast with canned carrots and a little bowl of icecream for dinner the night before. Had a bowl of cereal at 1 am prior to the last episode of pain. Discharged on Omeprazole. PAST GI HISTORY BY REVIEW OF MEDICAL RECORDS: Pt was seen by Dr Marcial: He has a hx of Hirschsprung's disease and had a diverting loop transverse colostomy in 2007 for marked colon distension. He eventually had a subtotal colectomy with an end ileostomy later that year. He has been on Coumadin for over 6 years in view of PE's. He has had periodic stoma bleeding and was admitted last October for this. I had brought him to the OR to examine the stoma as the blood appeared to come from an area on the upper part of the stoma itself. there was note of what seemed to be a small blind pouch adjacent and above the actual lumen of the stoma itself. His Coumadin was held and this bleeding had stopped .He also has a large parastomal hernia. 03/2018 he underwent repair of large parastomal hernia with placement of a biological mesh by Dr. Marcial. He had recurrence parastomal hernia 6 months later LABS IN [facility] : 12/24/19 reviewed IMAGING STUDIES: 05/[address] scan showed: Postop colectomy. Right lower quadrant ileostomy. Large parastomal hernia containing multiple loops of small bowel and fat. No evidence of obstruction, bowel wall thickening or wall enhancement seen. Multiple ventral small hernias containing fat and small supraumbilical hernia containing a knuckle of small bowel. Slightly enlarged spleen. Stable focal dilatation of the right distal ureter. Bladder not optimally distended. Question diffuse bladder wall thickening. 12/24/[address] scan showed: IMPRESSION: The dilated and undulated mid and distal ureter with slightly hypodense appearing area in the right distal ureter, which appears narrowed. Underlying lesion is not excluded. Similar findings were seen on previous exam. There is no left-sided hydronephrosis. Distended bladder with normal-appearing prostate gland. No bladder wall thickening seen. Several anterior abdominal wall hernias, the largest right midabdomen containing loops of small bowel and mesentery. Likely cholelithiasis with lucent stones. Hyperdense bile opacifies the entire gallbladder. ENDOSCOPIC STUDIES: 07/[address] López showed a gastric ulcer with visible vessel which was treated with epinephrine and cautery. 10/[address] Peres showed gastritis and no ulcers. 10/24 Colonoscopy via colostomy till 27 cms was performed by Dr. Marcial showed bleeding from granulation tissue in the stoma which subsided after anticoagulation was reversed [facility] Medical History History of substance abuse Obesity (BMI 30-39.9) Mixed hyperlipidemia Localized swelling of both lower legs Hepatic steatosis Parastomal hernia Hemorrhage from ileostomy On anticoagulant therapy Hx of gastric ulcer 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 His father just recently Housing: House Are you a primary technical healthcare consultant to a significant other at home: No Do you presently have visiting nurse or other home services: No Alcohol intake: current Alcohol intake frequency: holidays/special occasions only Patient Tobacco Use Status: Former Tobacco user e-Cigarette/Vaping Use: Never Used Second Hand Smoke Exposure: No Advance Directives Date on File: 11/14/22 service: No Current occupational status: disabled Cognitive needs: No Hearing needs: No Vision needs: No Review of Systems Const All systems reviewed & are unremarkable except as noted in HPI and below Physical Exam Vital Signs: Last Vital Signs Pulse 83 09/11/24 11:19 BP 134/67 09/11/24 11:19 Oxygen Delivery Method Room Air 09/11/24 11:19 Oxygen Flow Rate 96 09/11/24 11:19 BMI result Body Mass Index 35.4 Const General: healthy appearing and no acute distress Nutritional Appearance: obese Orientation/consciousness: patient oriented x3 Limitations: no limitations HEENT Head: Yes normal to inspection Ears: hearing grossly normal bilaterally Eyes Sclerae: sclerae normal Pupils: Equal, round and reactive pupils present Neck Neck: Yes normal visual inspection Chest Chest palpation & inspection: normal inspection of the chest Resp Effort & Inspection: normal respiratory effort Auscultation: clear to auscultation bilaterally Cardio Palpation: normal PMI Rate: regular rate Rhythm: regular rhythm Heart sounds: S1 normal heart sound present, S2 normal heart sound present and no murmurs GI Inspection: Yes obesity, Yes visible herniation (large peristomal hernia) and Yes other (Ileostomy in RUQ) Palpation (GI): Soft to palpation, nontender and No hepatosplenomegaly present Auscultation: normal bowel sounds Rectal Exam - Male: Yes deferred Skin General skin exam: no rashes or lesions noted Neuro General: patient oriented x3, gait normal and moves all extremities Cranial nerves: Yes Equal, round and reactive pupils present Psych Appearance: grossly normal Mental Status: mental status grossly normal Assessment & Plan Assessment & Plan (1) GERD (gastroesophageal reflux disease): Code(s): K21.9 - Gastro-esophageal reflux disease without esophagitis Category: Medical Qualifiers: Esophagitis presence: without esophagitis Qualified Code(s): K21.9 - Gastro-esophageal reflux disease without esophagitis (2) Hirschsprung's disease: Comment: hx of Hirschsprung's s/p subtotal colectomy 2007 Code(s): Q43.1 - Hirschsprung's disease Category: Medical (3) Hx of gastric ulcer: Comment: EGD done by MD Rene--07/13/17-[facility] Code(s): Z87.19 - Personal history of other diseases of the digestive system Category: Medical (4) Hepatic steatosis: Code(s): K76.0 - Fatty (change of) liver, not elsewhere classified Category: Medical (5) Ileostomy in place: Code(s): Z93.2 - Ileostomy status Category: Medical (6) Hemorrhage from ileostomy: Code(s): K94.11 - Enterostomy hemorrhage Category: Medical Plan 43 YM with a hx of Hirschsprung's disease and had a diverting loop transverse colostomy in 2007 for marked colon distension. He eventually had a subtotal colectomy with an end ileostomy later that year. Pt is on chronic anticoagulation for over 10 years because of PE's. 07/[address] López showed a gastric ulcer with visible vessel which was treated with epinephrine and cautery. 10/[address] Peres showed gastritis and no ulcers. Gilbert has had 2 episodes of upper abdominal pain associated with intake of milk products. Pain resolved after he passed some gas into his ileostomy bag. Episode of pain are likely associated with gaseous distension of parastomal hernia. Patient was advised to avoid milk products and monitor his symptoms and has not noted recurrent episodes of abdominal pain. He complains of intermittent episodes of diarrhea and feculent smelling burps suggestive of intermittent small bowel obstruction due to peristomal hernia, SIBO or small intestinal involvement with Hirschsprung disease. Patient was advised to schedule CT-enterography to determine if it is safe for him to have a capsule endoscopy. Pt was hospitalized in 05/28 with blood in the ileostoomy bag. No source of bleeding was detected on EGD. Bleeding was felt to be from granulation tissue in the ileostomy stoma. Advise re-evaluation of ielostomy stoma by General surgery. 09/11/24 EGD results reviewed - noted some bleeding from the ileostomy stoma which subsided after 1 day (likely bleeding from bx sites) Blood from ileostomy on and off. Pt is followed by Dr Rogers who had advised to get an opinion from Dr. Mead to see if on IVC filter is feasible, to try to get him off anticoagulation. Referral sent to vascular surgery. FU in 6 months Peristomal hernia? Patient is status post repair with biologic mesh placement and developed recurrent hernia 6 months later. Pt was seen by Dr Thang Mancini at [facility] surgery clinic and was advised weight reduction prior to referral to Colorectal surgeon. 08/07/24 Blood from ileostomy on and off. Bleeding comes and goes - he will be fine for 1-2 months 08/11/24 EGD (Hx of gastric ulcer and anemia) and Ileoscopy via ileostomy stoma (bleeding from ileostomy stoma) was performed and findings as noted. Orders: Referrals Vascular Surgery Referral K94.11 - Enterostomy hemorrhage Medications: Refilled hydroxyzine HCl 25 - 50 mg (1 - 2 x 25 mg) PO Q8H PRN 90 tabs 5RF for anxiety Coding Level of Care Code Est Pt Level 4 (08779) Diagnoses Gastroesophageal reflux disease without esophagitis K21.9 Esophagitis presence: without esophagitis Hirschsprung's disease Q43.1 Hx of gastric ulcer Z87.19 Hepatic steatosis K76.[address] Z93.2 Hemorrhage from ileostomy K94.11 Time Spent (min) 23
[2024-09-11 11:19] VITALS: BP 134/67; PULSE 83; BMI 35.4
--- OUTSIDE RECORDS SUMMARY | 2024-09-11 13:24 | XMS_ITS | Clinical Summary ---
Author Organization [facility] Address [address] [id number] Care Team Providers Care Asset Specialist Name Role Phone Sheng Tamayo Primary Care Provider [phone] Allergies No known active allergies Medications sertraline [...] Screening 07/09/2024 Depression Screening and Follow-Up 07/09/2024 [employer] Annual Screening 07/09/2024 RSV Vaccine (60+ years old and patients) (1 - 1-dose 75+ series) 12/20/2054 Pneumococcal Vaccine: Pediatric (0-5 Years) and At-Risk Patients (6-50 Years) Aged Out No longer eligible based on patient's age to complete this topic Insurance MEDICARE [facility] Care Teams Asset Specialist Relationship Specialty Start Date End Date Sheng Tamayo [address] [place] [address] [place] [id number] PCP - General Internal Medicine 10/18/21
--- OUTSIDE RECORDS SUMMARY | 2024-09-11 13:24 | XMS_ITS | Referral Summary ---
Author Organization [facility] Address [address] [id number] Care Team Providers Care Landcare Officer Name Role Phone Sheng Tamayo Primary Care Provider [phone] Allergies No known active allergies Medications sertraline [...] of Treatment Not on file Insurance MEDICARE [facility] Care Teams Landcare Officer Relationship Specialty Start Date End Date Sheng Tamayo [address] [facility] [place] [address] PCP - General Internal Medicine 10/18/21
== END 2024-09-11 12:06 | disposition home or self-care (01) ==
PROVIDERS: PCP Internal Medicine; Visit Provider Internal Medicine Gastroenterology
DX: K21.9 Gastro-esophageal reflux disease without esophagitis (principal); Q43.1 Hirschsprung's disease; Z87.19 Personal history of other diseases of the digestive system; K76.0 Fatty (change of) liver, not elsewhere classified; K94.11 Enterostomy hemorrhage
CPT/HCPCS: 99214

== ENCOUNTER → 2024-09-11 10:58 | Outpatient (BNVA) | payer MEDICARE, MEDICAID, SELFPAY | PROVIDERS: PCP Internal Medicine; Visit Provider Internal Medicine Gastroenterology | DX: K21.9 Gastro-esophageal reflux disease without esophagitis (principal); R14.0 Abdominal distension (gaseous); Q43.1 Hirschsprung's disease; K76.0 Fatty (change of) liver, not elsewhere classified; K94.11 Enterostomy hemorrhage; Z87.19 Personal history of other diseases of the digestive system | CPT/HCPCS: 99212 ==

== ENCOUNTER 2024-09-30 10:46 | Outpatient (AMB) | payer MEDICARE, MEDICAID, SELFPAY ==
--- NOTE | 2024-09-30 11:14 | A.OFFVIS_ITS ---
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 He was referred from hematology and oncology for these issues. He had actually seen us proximally 2 years prior for some venous insufficiency. At that time he was essentially negative for any significant venous insufficiency and due to his history of PE we had elected to observe these issues conservatively. He has been followed by Hematology-Oncology. Due to his history of GI bleed in addition to possible future repair of his parastomal hernia he now presents for evaluation for IVC filter placement. 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 His father just recently Housing: House Are you a primary hourly caregiver to a significant other at home: No Do you presently have visiting nurse or other home services: No Alcohol intake: current Alcohol intake frequency: holidays/special occasions only Patient Tobacco Use Status: Former Tobacco user e-Cigarette/Vaping Use: Never Used Second Hand Smoke Exposure: No Advance Directives Date on File: 11/14/22 service: No Current occupational status: disabled Cognitive needs: No Hearing needs: No Vision needs: No Review of Systems Const All systems reviewed & are unremarkable except as noted in HPI and below Reports no additional complaints ENT Reports Normal hearing present Card Denies chest pain, Denies chest pain at rest, Denies chest pain with activity and Denies pedal edema Resp Denies cough GI Denies abdominal pain Musc Denies abnormal gait, Denies muscle cramps and Denies radiating pain into limb Skin/Breast Denies skin ulcer and Denies wounds Neuro Reports Normal hearing present and Denies abnormal gait Psych Reports no additional complaints Physical Exam Const General: cooperative, healthy appearing and comfortable Orientation/consciousness: oriented to person, oriented to place and oriented to time HEENT Head: Yes normal to inspection Neck Neck: Yes normal visual inspection Carotids: no bruits Chest Chest palpation & inspection: normal inspection of the chest Resp Effort & Inspection: normal respiratory effort and able to speak in complete sentences Auscultation: clear to auscultation bilaterally, no crackles, no rales, no rhon chi and no wheezes Cardio Rate: regular rate Rhythm: regular rhythm Heart sounds: S1 normal heart sound present and S2 normal heart sound present Bruits: no carotid bruits Peripheral pulses: Peripheral pulses 2+ throughout GI Other: Obvious abdominal stoma with herniation Inspection: Yes normal to inspection Skin Wounds: no wounds Hair: normal Neuro General: oriented to person, oriented to place and oriented to time Cranial nerves: Yes CN's II-XII intact bilaterally and Yes Normal hearing present Cognition (Neuro): normal cognition Motor exam (neuro): 5/5 motor strength present throughout Extrem Other: venous exam: No significant superficial varicosities or spider telangiectasias, minimal edema General: No clubbing, No cyanosis and No edema Psych Appearance: grossly normal Mental Status: mental status grossly normal Speech and movement: Normal speech and movement present Assessment & Plan Assessment & Plan (1) Pulmonary embolism: Code(s): I26.99 - Other pulmonary embolism without acute cor pulmonale Category: Medical Qualifiers: Pulmonary embolism type: unspecified Chronicity: chronic Acute cor pulmonale presence: unspecified Qualified Code(s): I27.82 - Chronic pulmonary embolism Plan: During the visit, I discussed the roles and responsibilities regarding the patient's current issues, ensuring clarity and confirmation of my involvement in the care of his blood clot filter. The patient will require inferior vena cava filter placement. This has been discussed in detail with the patient along with risks, benefits, and complications. This includes but is not limited to bleeding, infection, heart attack, need for emergent surgical repair, limb ischemia, blood vessel damage, bleeding, puncture, kidney injury, bruising, allergic reaction, and skin reaction. The patient demonstrates a clear understanding. We will schedule for tomorrow.. Thank you for allowing us to assist in this patient's care. Coding Level of Care Code Est Pt Level 4 (98676) Complex EM visit Add On G2211 Diagnoses Chronic pulmonary embolism, unspecified pulmonary embolism type, unspecified whether acute cor pulmonale present I27.82 Pulmonary embolism type: unspecified Chronicity: chronic Acute cor pulmonale presence: unspecified
--- OUTSIDE RECORDS SUMMARY | 2024-09-30 13:06 | XMS_ITS | Clinical Summary ---
Author Organization [facility] Address [address] [id number] Care Team Providers Care Wall Steamer Name Role Phone Sheng Tamayo Primary Care Provider [phone] Allergies No known active allergies Medications sertraline [...] HIV Screening 1979 Hepatitis C Screening 1979 Medicare AWV 12/20/1980 Varicella Vaccines (1 of 2 - 13+ 2-dose series) 12/20/1992 Hepatitis B Vaccines (1 of 3 - 19+ 3-dose series) 12/20/1998 DTaP,Tdap,and Td Vaccines (1 - Tdap) 12/20/2001 COVID-19 Vaccine ( - 2023- season) 2024 04/27/2022, 01/02/2022, 05/13/2021, Additional history exists Influenza Vaccine (#1) 2024 06/18/2022 Alcohol/Substance Use Screening 07/09/2024 Depression Screening and Follow-Up 07/09/2024 Social Drivers of Health Annual Screening 07/09/2024 RSV Vaccine (60+ years old and patients) (1 - 1-dose 75+ series) 12/20/2054 Pneumococcal Vaccine: Pediatric (0-5 Years) and At-Risk Patients (6-50 Years) Aged Out No longer eligible based on patient's age to complete this topic Insurance MEDICARE [facility] Care Teams Wall Steamer Relationship Specialty Start Date End Date Sheng Tamayo [address] [place] [address] [place] [address] PCP - General Internal Medicine 10/18/21
--- OUTSIDE RECORDS SUMMARY | 2024-09-30 13:06 | XMS_ITS | Referral Summary ---
Author Organization [facility] Address [address] [id number] Care Team Providers Care Submarine Diver Name Role Phone Sheng Tamayo Primary Care Provider [phone] Allergies No known active allergies Medications sertraline [...] of Treatment Not on file Insurance MEDICARE [facility] Care Teams Submarine Diver Relationship Specialty Start Date End Date Sheng Tamayo [address] [facility] [place] [address] PCP - General Internal Medicine 10/18/21
== END 2024-09-30 12:51 | disposition home or self-care (01) ==
LOC: HO.HVS 10:47
PROVIDERS: PCP Internal Medicine; Visit Provider Surgery Vascular Surgery
DX: I27.82 Chronic pulmonary embolism (principal)
CPT/HCPCS: 99214; G2211

== ENCOUNTER → 2024-09-30 10:46 | Outpatient (BNVA) | payer MEDICARE, MEDICAID, SELFPAY | PROVIDERS: PCP Internal Medicine; Visit Provider Surgery Vascular Surgery | DX: I27.82 Chronic pulmonary embolism (principal) | CPT/HCPCS: 99212 ==

== ENCOUNTER 2024-10-01 07:25 | Day surgery (SDC) | payer MEDICARE, MEDICAID, SELFPAY ==
[2024-10-01] VITALS (21 sets, daily range): BP systolic 108–166; BP diastolic 57–97; PULSE 58–80; RESP 14–18; TEMP 36.1–36.6; O2SAT 93–98; BMI 41.9
[2024-10-01 08:01] LABS: Basophils Percent Auto 0.8 % (0-2); Eosinophils Absolute Auto 0.1 X10*3/uL (0.0-0.4); Eosinophils Percent Auto 1.8 % (0-4); Hematocrit 33.2 % (42.0-52.0); Hemoglobin 10.4 g/dl (14.0-18.0); Imm Gran Abs Auto 0.02 X10*3/uL (0.00-0.03); Imm Gran Pct Auto 0.5 % (0.0-0.4); Lymphocytes Absolute Auto 1.1 X10*3/uL (1.2-4.9); Lymphocytes Percent Auto 28.9 % (20-40); MANUAL DIFF FLAG NO; Mean Corpuscular HGB Conc 31.3 g/dl (31.0-36.0); Mean Corpuscular Hemoglobin 25.1 pg (27.0-33.0); Mean Corpuscular Volume 80.2 fL (80.0-98.0); Mean Platelet Volume 10.6 fL (9.4-12.4); Monocytes Absolute Auto 0.3 X10*3/uL (0.1-1.2); Monocytes Percent Auto 8.6 % (2-11); Neutrophils Absolute Auto 2.3 x10*3/uL (2.0-8.3); Neutrophils Percent Auto 59.4 % (45-73); Platelet Count 133 X10*3/uL (160-400); Red Blood Count 4.14 X10*6/uL (4.60-5.80); Red Cell Distribution Width 16.1 % (11.0-16.0); White Blood Count 3.9 X10*3/uL (4.8-10.8)
[2024-10-01 08:17] LABS: Blood Urea Nitrogen 14 mg/dL (9-16); Creatinine Clr Calc Pharmacy 137.1; Estimated Glomerular Filt Rate > 60
[2024-10-01] MEDS: 0.9 % Sodium Chloride 1,000 ML 100 ML IVCONT (08:32)
[2024-10-01] MEDS: Midazolam HCl 2 MG/2 ML VIAL 0.5 MG IVPUSH ×2 (09:25→09:35)
[2024-10-01] MEDS: fentaNYL citrate/PF 100 MCG/2 ML VIAL 25 MCG IVPUSH ×2 (09:25→09:35)
--- NOTE | 2024-10-01 10:05 | W.PM.OPN ---
Operative Note Operative Note Date of Service: 10/01/24 Narrative: Angiogram report from [facility] Preoperative diagnosis: Deep venous thrombosis Postoperative diagnosis: Same Procedure: 1. Ultrasound-guided right common femoral vein access 2. Inferior vena cavogram 3. Placement of inferior vena cava filter Surgeon:Richar Mead M.D., FACS, RPVI Chief Analytics Officer:None Anesthesia: Local with moderate conscious sedation. Total intraservice moderate sedation time was 35 minutes. I monitored the patient's level of consciousness and physiologic status continuously throughout the procedure. 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 He has been on long-term anticoagulation. Request was made for IVC filter placement. The patient has signed the informed consent after reviewing risks, complications, benefits, and alternatives previously discussed with the patient. The patient was given the opportunity to ask any additional questions or voice any concerns. All questions were answered to the patient's satisfaction. Procedure in detail: Patient was brought to the angiography suite prior to which a time-out was called for patient identification and site verification. Bilateral groins were prepped and draped in the standard surgical fashion. Under ultrasound guidance right common femoral vein was punctured with micro puncture needle and wire. Subsequently a precision 5 Senegalese sheath was then placed. Bentson wire was advanced to the level of the vena cava. Vena cavogram was then undertaken through the 5 Senegalese sheath. This was a baseline study to define the variant anatomy, caval size, location and number of renal veins, and to evaluate for ileo caval thrombus. Under direct fluoroscopic guidance we exchanged out the 5 [place]egalese sheath for the Bard in [place] sheath. We brought the filter into position. This was then subsequently deployed. The inner cannula was then removed. Through the sheath a hand injection was performed to assess filter position. Once this was accomplished the sheath was then removed, and hemostasis was achieved with 10 minutes of direct compression. No immediate complications occurred and the patient was returned to the recovery suite with no complications Interpretation of films: 1. Ultrasound demonstrates appropriate femoral vein puncture. Image of which was saved. 2. There was no ileal caval thrombus noted 3. There are single renal veins bilaterally and the IVC is normal in caliber. There is no aberrant anatomy. 4. The filter was deployed appropriately and position below the lowest renal vein. Conclusion: 1. Successful placement of Bard Madison IVC filter 2. Anticoagulation status: Resume regular anticoagulation as indicated with Xarelto tonight This note is constructed using voice recognition software. While every effort has been made to ensure accuracy, polisher apprentice errors may have been included. Thank you for allowing me to participate in the care of your patient. Yours sincerely, Richar Mead MD, FACS, R.P.V.I.
== END 2024-10-01 12:08 | disposition home or self-care (01) ==
PROVIDERS: PCP Internal Medicine; Visit Provider Surgery Vascular Surgery
DX: I27.82 Chronic pulmonary embolism (principal); Z79.01 Long term (current) use of anticoagulants; Q43.1 Hirschsprung's disease; K92.2 Gastrointestinal hemorrhage, unspecified; Z87.11 Personal history of peptic ulcer disease; Z90.49 Acquired absence of other specified parts of digestive tract; Z93.2 Ileostomy status; K43.5 Parastomal hernia without obstruction or gangrene; K76.0 Fatty (change of) liver, not elsewhere classified; R22.43 Localized swelling, mass and lump, lower limb, bilateral; E78.2 Mixed hyperlipidemia; E66.9 Obesity, unspecified; F11.20 Opioid dependence, uncomplicated; F19.11 Other psychoactive substance abuse, in remission; Z79.899 Other long term (current) drug therapy; Z98.890 Other specified postprocedural states; Z87.891 Personal history of nicotine dependence
CPT/HCPCS: 36415; 37191; 82565; 84520; 85025; C1880; C1894; J1644; J2250; J3010; Q9967

== ENCOUNTER → 2024-10-01 07:25 | Outpatient (BNV) | payer MEDICARE, MEDICAID, SELFPAY | PROVIDERS: PCP Internal Medicine; Visit Provider Surgery Vascular Surgery | DX: I26.99 Other pulmonary embolism without acute cor pulmonale (principal); Z79.01 Long term (current) use of anticoagulants | CPT/HCPCS: 37191 ==

== ENCOUNTER 2025-03-08 12:26 | Emergency (ER) | payer MEDICARE, MEDICAID, SELFPAY ==
[2025-03-08 12:39] VITALS: BP 143/82; PULSE 100; RESP 18; TEMP 36.7; O2SAT 97; BMI 33.6
--- NOTE | 2025-03-08 12:39 | ED.GENADULT ---
[facility] - General Adult General Chief complaint: GI Bleed Stated complaint: ?GI Bleed Time Seen by Provider: 03/08/25 13:56 Source: patient Mode of arrival: ambulatory Limitations: no limitations History of Present Illness ED Provider: HPI narrative: 44-year-old male with significant prior medical history on Xarelto, colostomy, parastomal hernia, abdominal hernia surgeries and revision, has had a filter placed as well so he can stop his Xarelto during episodes of bleeding. He started developing bloody colostomy output last night, and his last Xarelto dose was last night, he endorses extreme anxiety when this happens and he is afraid that his abdomen is going to explode. However he also endorses that typically he hold his Xarelto and this resolves in the next 2 3 days and then restarts it. This is a recurrent issue. Related Data Home Medications ?Medication ?Instructions ?Recorded ?Confirmed methadone 10 mg/mL oral concentrate 95 mg PO DAILY 09/23/21 10/01/24 Previous Rx's ?Medication ?Instructions ?Recorded sertraline 50 mg tablet 50 mg PO DAILY 90 days #90 tabs 06/23/24 hydroxyzine HCl 25 mg tablet 25 - 50 mg (1 - 2 x 25 mg) PO Q8H 09/11/24 PRN for anxiety #90 tabs buspirone 10 mg tablet 10 mg PO BID 30 days #60 tabs 10/27/24 lisinopril 5 mg tablet 5 mg PO DAILY 30 days #30 tabs 12/16/24 omeprazole 40 mg capsule,delayed 40 mg PO DAILY #90 caps 12/16/24 release rivaroxaban 10 mg tablet 10 mg PO DAILY #90 tabs 02/08/25 Allergies Allergy/AdvReac Type Severity Reaction Status Date / Time No Known Allergies (NO KNOWN Allergy Unknown UNKNOWN Verified 03/08/25 12:42 ALLERGIES) Review of Systems Constitutional: Constitutional: Reports as per [facility] Past Medical History Medical History (Updated 03/08/25 @ 14:58 by Gatito Man DO) History of substance abuse Obesity (BMI 30-39.9) Mixed hyperlipidemia Localized swelling of both lower legs Hepatic steatosis Parastomal hernia Hemorrhage from ileostomy On anticoagulant therapy Hx of gastric ulcer 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 His father just recently Housing: House Are you a primary career resource technician to a significant other at home: No Do you presently have visiting nurse or other home services: No Alcohol intake: current Alcohol intake frequency: holidays/special occasions only Patient Tobacco Use Status: Former Tobacco user Smoked in Last 30 Days: No e-Cigarette/Vaping Use: Never Used Second Hand Smoke Exposure: No Use of substances other than those prescribed or required for medical reasons: No Any prior treatment program specific to substance use: Yes ([facility]) Advance Directives: Yes Advance Directives on File: Yes Advance Directives Date on File: 11/14/22 service: No Current occupational status: disabled Cognitive needs: No Hearing needs: No Vision needs: No Physical Exam ED Vital Signs: Vital Signs - 24 hr 03/08/25 12:39 03/08/25 14:13 Temperature 98.0 F 97.4 F Pulse Rate 100 92 Respiratory Rate 18 116 H Blood Pressure 143/82 H 133/86 Pulse Oximetry 97 98 Oxygen Delivery Method Room Air Room Air BMI result Body Mass Index 33.6 Const Other: Gen: Overall well-appearing, slightly older than stated age CV: RRR, no obvious murmurs appreciated Resp: ?No wheezing rales rhonchi no stridor moving air well Abd: ?Large right-sided per stomal hernia, colostomy in place, stool mixed with blood MSK: FROM, strength 5/5 all extremities Skin: Warm, dry, intact, Neuro: ?Alert and oriented x3, moving upper and lower extremities symmetrically, no obvious facial asymmetry noted Course Course Course Narrative: This is a Rapid Medical Examination (RME) performed by Mili Francois PA-C in triage. Full HPI, ROS, assessment and treatment plan per primary provider in the Main ED. Hx: 44 yo M hx of Hirschsprung disease, hepatic steatosis, history of gastric ulcer, ileostomy, anticoagulation therapy, parastomal hernia, ventral hernia, PE on xarelto here with concerns of GI bleed d/t blood noted in his colostomy bag since last night. states this happens often as he is on AC however is now feeling SOB. no pain. PE/vitals: ileostomy bag with shawna blood Plan: labs Medical Decision Making Medical Decision Making MDM Narrative: I reviewed quite a bit of outpatient specialist reports on this patient both from Gastroenterology and General surgery, I have reviewed his endoscopy reports and surgical recommendations, patient has had an IVC filter placed and it sounds like just for the purpose of having to stop his Xarelto until the bleeding stops, and then restarting it, patient is hemodynamically stable, no ongoing tachycardia, he is nonfebrile, bowel sounds are present, he has large hernia, there is no indication for obstruction, and his H and H is stable, see my discharge instructions but generally the plan is going to be hold his Xarelto for a week, expect bleeding to stop in the next 3 days and if it continues to bleed on the 5th day to come back and repeat a CBC at that point he may need to be transfused, and of course if he has any worsening symptoms. Patient is very comfortable with this plan he just wanted to be reassured that he is not going to bleed to or that his abdomen is not going to explode I did not feel further imaging such as CT would be indicated at this time. Differential Diagnosis Differential Diagnoses: The differential diagnosis associated with the presentation includes (Symptomatic anemia, upper GI bleed, SBO,) Admission/Observation Consideration of admission/observation: Escalation of care including admission/observation considered 2022 Emergency Medicine Coding Guide from [email or web address] on 03/08/2025 All calculations should be rechecked by clinician prior to use RESULT SUMMARY: 5 Estimated Level of Service Problems: High (5) Risk: High (5) Data: Moderate (4) NARRATIVE MDM: This patient's problem complexity is High as patient: with chronic illness(es) with severe exacerbation/progression/side effects. This patient's risk is High due to: overall presentation requiring evaluation for a potentially High-risk process. This patient's data complexity is Moderate due to: -external notes reviewed INPUTS: Number and Complexity ?> 1 = 5: chronic illness w/severe exacerbation (a) Risk level ?> 4 = High Tests ordered ?> 1 = 1 Tests results reviewed (excluding labs) ?> 0 = 0 Prior external notes reviewed ?> 3 = =3 Assessment requiring and independent historian ?> 0 = No Independent interpretation of tests ?> 0 = No Discussed management/test interpretation w/external professional ?> 0 = No Lab Data MDM Lab Attestation statement: I reviewed the patient's lab results. 03/08/25 13:07 03/08/25 13:08 Labs: Lab Results 03/08/25 03/08/25 Range/Units 13:07 13:08 WBC 3.7 L (4.8-10.8) X10*3/uL RBC 4.15 L (4.60-5.80) X10*6/uL Hgb 10.7 L (14.0-18.0) g/dl Hct 32.7 L (42.0-52.0) % MCV 78.8 L (80.0-98.0) fL MCH 25.8 L (27.0-33.0) pg MCHC 32.7 (31.0-36.0) g/dl RDW 15.4 (11.0-16.0) % Plt Count 154 L (160-400) X10*3/uL MPV 11.0 (9.4-12.4) fL Immature Gran % (Auto) 0.3 (0.0-0.4) % Neut % (Auto) 62.0 (45-73) % Lymph % (Auto) 28.2 (20-40) % [place] % (Auto) 6.8 (2-11) % Eos % (Auto) 1.9 (0-4) % Baso % (Auto) 0.8 (0-2) % Lymph # (Auto) 1.0 L (1.2-4.9) X10*3/uL [place] # (Auto) 0.3 (0.1-1.2) X10*3/uL Eos # (Auto) 0.1 (0.0-0.4) X10*3/uL Baso # (Auto) 0.0 (0.0-0.2) X10*3/uL Abs Immat Gran (auto) 0.01 (0.00-0.03) X10*3/uL Absolute Neuts (auto) 2.3 (2.0-8.3) x10*3/uL Absolute Nucleated RBC 0.000 (0.0-0.012) X10*3/uL Nucleated RBC % (auto) 0.0 (0.0-0.2) /100WBC Sodium 137 (135-145) mmol/L Potassium 4.2 (3.3-5.1) mmol/L Chloride 103 (96-108) mmol/L Carbon Dioxide 25 (22-29) mmol/L Anion Gap 13 (12-20) BUN 13 (9-16) mg/dL Creatinine 0.87 (0.5-1.4) mg/dL Estim Creat Clear Calc 146.8 Estimated GFR > 60 Random Glucose 231 H (60-115) mg/dL Calcium 8.9 D (8.4-10.2) mg/dL Magnesium 1.7 (1.6-2.6) mg/dL Total Bilirubin 0.3 (0.0-1.0) mg/dL AST 30 (5-37) U/L ALT 30 (0-40) U/L Alkaline Phosphatase 82 (39-117) U/L Total Protein 7.0 (6.5-8.0) g/dL Albumin 4.1 (3.5-5.0) g/dL Lipase 42 (8-78) U/L External Record Review External record reviewed: Inpatient record, Office record and Prior outpatient radiology Tests considered The following testing was considered but not selected: CT abdomen and pelvis with IV contrast Chronic Conditions Patient?s care impacted by: Other (History of Hirschsprung disease,) Discharge Plan Discharge Clinical Impression: Parastomal hernia, Bleeding from colostomy Patient Disposition: Home, Self-Care Additional Instructions: As we have discussed, stop taking Xarelto, typically the bleeding we will take up to 3 days to resolve, if you are still bleeding on day 5 come back to the ER for re-evaluation and recheck of your CBC to see if he had lost enough blood for blood transfusion at that point I think it is going to be reasonable that you were transfused possibly admitted for imaging or re-evaluation or gastroenterology consultation today your vital signs are reassuring, it exam has not changed much, and your hemoglobin shows anemia but more or less your baseline. Restart your Xarelto 2 days after the bleeding stops Follow up with the PCP or as discussed come back to the ER for re-evaluation if you feel worse Prescriptions: No Action sertraline 50 mg tablet 50 mg PO DAILY 90 Days Qty: 90 1RF buspirone 10 mg tablet 10 mg PO BID 30 Days Qty: 60 3RF lisinopril 5 mg tablet 5 mg PO DAILY 30 Days Qty: 30 2RF omeprazole 40 mg capsule,delayed release(DR/EC) 40 mg PO DAILY Qty: 90 1RF rivaroxaban 10 mg Tablet 10 mg PO DAILY Qty: 90 4RF Rx Instructions: for 35 days methadone 10 mg/mL concentrate 95 mg PO DAILY Rx Instructions: [facility] PHONE #'s - [phone] OR [phone] hydroxyzine HCl 25 mg tablet 25 - 50 mg PO Q8H PRN (Reason: for anxiety) Qty: 90 5RF Print Language: Canadian
[2025-03-08 13:18] LABS: MANUAL DIFF FLAG NO
[2025-03-08 13:24] LABS: Hematocrit 32.7 % (42.0-52.0); Hemoglobin 10.7 g/dl (14.0-18.0); Imm Gran Abs Auto 0.01 X10*3/uL (0.00-0.03); Imm Gran Pct Auto 0.3 % (0.0-0.4); Lymphocytes Absolute Auto 1.0 X10*3/uL (1.2-4.9); Mean Corpuscular HGB Conc 32.7 g/dl (31.0-36.0); Mean Corpuscular Hemoglobin 25.8 pg (27.0-33.0); Mean Corpuscular Volume 78.8 fL (80.0-98.0); NRBC Abs Auto 0.000 X10*3/uL (0.0-0.012); NRBC Pct Auto 0.0 /100WBC (0.0-0.2); Platelet Count 154 X10*3/uL (160-400); Red Blood Count 4.15 X10*6/uL (4.60-5.80); White Blood Count 3.7 X10*3/uL (4.8-10.8)
[2025-03-08 13:35] LABS: Alanine Aminotransferase 30 U/L (0-40); Albumin Level 4.1 g/dL (3.5-5.0); Alkaline Phosphatase 82 U/L (39-117); Anion Gap 13 (12-20); Aspartate Amino Transferase 30 U/L (5-37); Blood Urea Nitrogen 13 mg/dL (9-16); Calcium 8.9 mg/dL (8.4-10.2); Carbon Dioxide 25 mmol/L (22-29); Chloride 103 mmol/L (96-108); Creatinine Clr Calc Pharmacy 146.8; Estimated Glomerular Filt Rate > 60; Lipase 42 U/L (8-78); Magnesium 1.7 mg/dL (1.6-2.6); Potassium 4.2 mmol/L (3.3-5.1); Sodium 137 mmol/L (135-145); Total Protein 7.0 g/dL (6.5-8.0)
--- OUTSIDE RECORDS SUMMARY | 2025-03-08 13:57 | XMS_ITS | Clinical Summary ---
Author Organization [facility] Address [address] [place] [address] Care Team Providers Care Patient Care Assistant Name Role Phone Sheng Tamayo Primary Care Provider Allergies No known active allergies Medications sertraline [...] 85 12/08/2022 1:53 PM EDT Temperature 35.9 C (96.6 F) 04/07/2022 1:03 PM EDT Respiratory Rate - - Oxygen Saturation - - Inhaled Oxygen Concentration - - Weight 111 kg (244 lb 11.4 oz) 12/08/2022 1:53 P M EDT Height 170.2 cm (5' 7 ) 12/08/2022 1:53 PM EDT Body Mass Index 38.33 12/08/2022 1:53 PM EDT Plan of Treatment Health Maintenance Due Date Last Done Comments Cologuard 1979 FOBT / Fit Test 1979 HIV Screening 1979 Hepatitis C Screening 1979 Sigmoidoscopy 1979 Medicare AWV 12/20/1980 Varicella Vaccines (1 of 2 - 13+ 2-dose series) 12/20/1992 Hepatitis B Vaccines (1 of 3 - 19+ 3-dose series) 12/20/1998 DTaP,Tdap,and Td Vaccines (1 - Tdap) 12/20/2001 COVID-19 Vaccine (2023- season) 2024 04/27/2022, 01/02/2022, 05/13/2021, Additional history exists Alcohol/Substance Use Screening 07/09/2024 Depression Screening and Follow-Up 07/09/2024 Social Drivers of Health Annual Screening 07/09/2024 Influenza Vaccine (#1) 2025 06/18/2022 Colon Cancer Screening 11/03/2027 Colonoscopy 11/03/2027 11/02/2017 RSV Vaccine (60+ years old and patients) (1 - 1-dose 75+ series) 12/20/2054 Pneumococcal Vaccine: Pediatric (0-5 Years) and At-Risk Patients (6-50 Years) Aged Out No longer eligible based on patient's age to complete this topic Procedures * Due to [place] [employer] law, this organization might not be sharing negative HIV tests. Procedure Name Priority Date/Time Associated Diagnosis Comments COLONOSCOPY 11/02/2017 from Last 3 Months or Most Recently Relevant to Health Maintenance Results * Due to [place] [employer] law, this organization might not be sharing negative HIV tests. * COLONOSCOPY (11/02/2017) 11/02/2017 us Onbase Scan [facility] Final Resu lt from Last 3 Months or Most Recently Relevant to Health Maintenance Insurance MEDICARE [facility] Care Teams Patient Care Assistant Relationship Specialty Start Date End Date Sheng Tamayo [address] [facility] [place] [address] PCP - General Internal Medicine 10/18/21
[2025-03-08 14:13] VITALS: BP 133/86; PULSE 92; RESP 116; TEMP 36.3; O2SAT 98
[2025-03-08 15:06] VITALS: BP 133/86; PULSE 92; RESP 116; TEMP 36.3; O2SAT 98
== END 2025-03-08 15:22 | disposition home or self-care (01) ==
PROVIDERS: Physician Assistant Medical; Emergency Provider Emergency Medicine; PCP Internal Medicine
DX: K43.5 Parastomal hernia without obstruction or gangrene (principal); K94.01 Colostomy hemorrhage; Z79.01 Long term (current) use of anticoagulants; Z79.899 Other long term (current) drug therapy; Z87.19 Personal history of other diseases of the digestive system; Z86.711 Personal history of pulmonary embolism
CPT/HCPCS: 36415; 80053; 83605; 83690; 83735; 85025; 86850; 86900; 86901; 99283; 99284